=== PATIENT | male | born 1955 | race Caucasian/White ===

== ENCOUNTER 2017-12-14 18:02 | Observation (INO) | payer MEDICARE ==
[2017-12-14] MEDS ORDERED: Communication Order-Pharmacy FS SCH (18:30)
[2017-12-14 19:22] LABS: #Eosinphils 0.4 thou/uL (0.0-0.7); #Lymphocytes 1.7 thou/uL (1.20-3.40); #Monocytes 0.8 thou/uL (0.11-0.59); #Neutrophils 4.8 thou/uL (1.40-6.50); %Basophils 0.1 % (0.0-1.0); %Eosinophils 4.8 % (0.0-10.0); %Lymphocytes 22.3 % (21.0-51.0); %Monocytes 10.3 % (0.0-10.0); %Neutrophils 62.5 % (42.0-75.0); Mean Corpuscular HGB CONC 32.2 g/dL (32.0-36.0); Mean Corpuscular Hemoglobin 29.7 pg (27.0-31.0); Mean Corpuscular Volume 92.2 fl (80.0-94.0); Mean Platelet Volume 9.6 fL (7.4-10.4); Platelet Count 164 thou/uL (130-400); RBC Distribution Width 12.9 % (11.5-14.5); Red Blood Cell (RBC) Count 3.35 mill/uL (4.70-6.10); White Blood Cell (WBC) Count 7.6 thou/uL (4.8-10.8)
[2017-12-14 19:32] LABS: Anion Gap 13 mmol/L (10-20); BUN (Urea Nitrogen) 56 mg/dL (8.4-25.7); Calc. Creatinine Clearance 66 mL/min (70-130); Calcium 8.6 mg/dL (7.8-10.44); Carbon Dioxide 29 mmol/L (23-31); Chloride 107 mmol/L (98-107); Estimated GFR-MDRD 31; Glucose 277 mg/dL (80-115); Potassium 5.1 mmol/L (3.5-5.1); Sodium 144 mmol/L (136-145)
--- NOTE | 2017-12-14 19:32 | RAD ---
PORTABLE CHEST: 12/14/17 HISTORY: Cardiac catheterization exam. FINDINGS/IMPRESSION: Mild cardiomegaly with postop sternotomy change. Mild vascular congestion. Left basilar infiltrate an d atelectasis with evidence of left effusion. POS: [facility]
[2017-12-14] MEDS ORDERED: Sodium Chloride 0.9% 1,000 ML IV SCH ×2 (22:00)
[2017-12-14] MEDS ORDERED: Furosemide 40 MG/4 ML VIAL SLOW IVP SCH (22:00)
[2017-12-14] MEDS ORDERED: Carvedilol 6.25 MG TAB PO SCH (22:00)
[2017-12-14] MEDS ORDERED: Atorvastatin Calcium 20 MG TAB PO SCH (22:00)
--- NOTE | 2017-12-15 03:00 | HP ---
DATE OF ADMISSION: 12/14/2017 HISTORY OF PRESENT ILLNESS: Mr. Knapp is a pleasant 62-year-old white gentleman who comes to the hospital for pre-catheterization hydration. He has a history of a cardiomyopathy with EF of 40% to 45%, recent stress test showed apical ischemia. Because of a creatinine of 2.1, he has been admitted for hydration preprocedure. We will plan on doing this tomorrow morning. He has no complaints, den ies any chest pain, tightness, pressure. Currently denies any shortness of breath. He feels that is normal baseline. PAST MEDICAL HISTORY: 1. Type 2 diabetes. 2. Coronary artery disease status post bypass. 3. Hypertension. 4. Hyperlipidemia. 5. Gastroesophageal reflux disease. PAST SURGICAL HISTORY: 1. CABG x5. 2. Knee surgery. 3. Neck surgery. ALLERGIES: No known drug allergies. FAMILY HISTORY: Noncontributory. SOCIAL HISTORY: No alcohol, tobacco or drugs. REVIEW OF SYSTEMS: A 12-point review of systems was done and is all negative unless stated in the hi story of present illness. He has a left carotid bruit. OUTPATIENT MEDICATIONS: Include; 1. Carvedilol 12.5 mg b.i.d. 2. Metolazone 5 mg a day. 3. Imdur 30 mg a day. 4. Humalog. 5. Levemir. 6. Hydralazine 25 mg t.i.d. 7. Lasix 20 mg a day. 8. Atorvastatin 40 mg at bedtime. 9. Aspirin 81 mg a day. PHYSICAL EXAMINATION: VITAL SIGNS: Temperature 97.6, pulse 87, respiratory rate 20, satting 97% on room air, blood pressur e 172/71. GENERAL: Awake, alert, oriented x3, in no distress. HEENT: Normocephalic, atraumatic. NECK: Supple. LUNGS: Clear. CARDIOVASCULAR: S1, S2, no S3 or S4, no murmurs or rubs. ABDOMEN: Soft. Positive bowel sounds. EXTREMITIES: No edema. SKIN: Warm and dry. LABORATORY WORK: Reviewed. White count of 7.6, hemoglobin 10, hematocrit of 30, platelet count of 1 64. Chemistry with a creatinine of 2.16, GFR of 31, glucose of 277. Chest x-ray was reviewed. ASSESSMENT: 1. Ischemic cardiomyopathy. 2. Coronary artery disease. 3. Atypical ischemia on stress. 4. Status bypass x5. 5. Type 2 diabetes. PLAN: 1. Hydration overnight. We will plan on doing a heart catheterization tomorrow morning. 2. We have spoken at length about risks and benefits of the procedure and he agrees to proceed. Ple ase see my clinic note for full details on informed consent. 3. Further recommendations after results of coronary angiogram in the morning. 4. Drug-eluting stents if needed.
[2017-12-15 05:22] LABS: #Eosinphils 0.4 thou/uL (0.0-0.7); #Monocytes 0.8 thou/uL (0.11-0.59); #Neutrophils 3.5 thou/uL (1.40-6.50); %Basophils 0.6 % (0.0-1.0); %Eosinophils 5.6 % (0.0-10.0); %Lymphocytes 29.2 % (21.0-51.0); %Monocytes 12.1 % (0.0-10.0); %Neutrophils 52.6 % (42.0-75.0); Hemoglobin 9.2 g/dL (14.0-18.0); Mean Corpuscular HGB CONC 32.4 g/dL (32.0-36.0); Mean Corpuscular Hemoglobin 29.8 pg (27.0-31.0); Mean Platelet Volume 9.6 fL (7.4-10.4); Platelet Count 155 thou/uL (130-400); RBC Distribution Width 12.9 % (11.5-14.5); Red Blood Cell (RBC) Count 3.07 mill/uL (4.70-6.10); White Blood Cell (WBC) Count 6.7 thou/uL (4.8-10.8)
[2017-12-15 05:42] LABS: ALT (SGPT) 14 U/L (8-55); AST (SGOT) 12 U/L (5-34); Albumin 3.2 g/dL (3.4-4.8); Alkaline Phosphatase 112 U/L (40-150); Anion Gap 12 mmol/L (10-20); BUN (Urea Nitrogen) 56 mg/dL (8.4-25.7); Bilirubin, Total 0.4 mg/dL (0.2-1.2); Calc. Creatinine Clearance 61 mL/min (70-130); Calcium 8.2 mg/dL (7.8-10.44); Carbon Dioxide 30 mmol/L (23-31); Cardiac Risk 5.4 (Less than 4.5); Chloride 105 mmol/L (98-107); Cholesterol 129 mg/dl (< 200 Desired); Estimated GFR-MDRD 29; Globulin 2.6 g/dL (2.4-3.5); Glucose 265 mg/dL (80-115); HDL Cholesterol 24 mg/dL (>60 Neg Risk); LDL Cholesterol, Calculated 79 mg/dL; Potassium 4.2 mmol/L (3.5-5.1); Protein, Total 5.8 g/dL (5.8-8.1); Sodium 143 mmol/L (136-145); Triglycerides 131 mg/dL (Less than 150)
[2017-12-15] MEDS: hydrALAZINE 25 MG TAB PO SCH ×3 (09:04→22:12)
[2017-12-15] MEDS: Carvedilol 6.25 MG TAB PO SCH ×2 (09:04→17:30)
[2017-12-15 13:01] VITALS: BMI 37.5
[2017-12-15] MEDS ORDERED: Insulin Regular 300 UNITS/3 ML VIAL SC PRN (14:04)
[2017-12-15] MEDS ORDERED: Dextrose 5% in Water 1,000 ML IV PRN (14:04)
[2017-12-15] MEDS ORDERED: Dextrose 50% Abboject 50 ML SYRINGE IVP PRN (14:04)
--- NOTE | 2017-12-15 16:19 | PDOC.CTH ---
Cardiology Progress Note - Subjective He diuresed well overnight. He feels much better and is now able to lay flat. - Objective Vital Signs Temp Pulse Resp BP BP Pulse Ox 12/15/17 15:05 69 171/78 H 12/15/17 15:00 97.8 F 69 16 171/78 H 96 12/15/17 11:25 97.6 F 70 16 155/68 H 95 12/15/17 07:48 98.6 F 75 16 94 L 12/15/17 07:41 98.6 F 75 16 169/77 H 94 L Admit Weight 296 lb 14.4 oz Weight 292 lb 12/14/17 12/15/17 12/16/17 06:59 06:59 06:59 Intake Total 240 Output Total 1150 Balance -910 - Physical Examination General/Neuro: alert & oriented x3, NAD Neck: no JVD present Lungs: CTA, unlabored respirations Heart: RRR Abdomen: NT/ND Extremities: + edema B (1+) - Telemetry Telemetry Rhythm: NSR - Labs Result Diagrams: 12/15/17 04:55 12/15/17 04:55 - Assessment/Plan 1. CAD 2. Ischemic CM, worsening from last evaluation. 3. Ischemia on MPI. 4. CKD stage 4 PLAN: - Will plan to start hydration overnight this evening with plans for cath tomorrow if creatinine better. - NPO past midnight, plan to do this tomorrow at 8am. - IVF to start at 9pm today NS at 50ml/hr.
[2017-12-15] MEDS: Insulin Regular 300 UNITS/3 ML VIAL SC PRN (17:30)
[2017-12-15] MEDS ORDERED: Atorvastatin Calcium 40 MG TAB PO SCH (21:00)
[2017-12-15] MEDS ORDERED: Sodium Chloride 0.9% 1,000 ML IV SCH (21:30)
[2017-12-15] MEDS: Acetaminophen 325 MG TAB PO PRN (22:11)
[2017-12-16 06:18] LABS: Anion Gap 9 mmol/L (10-20); BUN (Urea Nitrogen) 57 mg/dL (8.4-25.7); Calc. Creatinine Clearance 65 mL/min (70-130); Calcium 8.3 mg/dL (7.8-10.44); Carbon Dioxide 31 mmol/L (23-31); Chloride 105 mmol/L (98-107); Estimated GFR-MDRD 31; Glucose 265 mg/dL (80-115); Potassium 4.3 mmol/L (3.5-5.1); Sodium 141 mmol/L (136-145)
[2017-12-16] MEDS: Carvedilol 6.25 MG TAB PO SCH ×2 (06:31→18:06)
[2017-12-16] MEDS ORDERED: Midazolam HCl 2 mg/2 ml Vial ONE (08:07)
[2017-12-16] MEDS ORDERED: Fentanyl 100 MCG/2 ML VIAL ONE (08:08)
[2017-12-16] MEDS ORDERED: hydrALAZINE 20 MG/ML VIAL ONE (08:45)
[2017-12-16] MEDS: hydrALAZINE 25 MG TAB PO SCH ×2 (10:16→16:15)
[2017-12-16] MEDS: Insulin Regular 300 UNITS/3 ML VIAL SC PRN ×2 (10:16→18:05)
[2017-12-16] MEDS: Acetaminophen 325 MG TAB PO PRN (10:17)
[2017-12-16] MEDS ORDERED: Nitroglycerin 0.4 MG TAB (25 Tab Bottle) SL PRN (11:58)
[2017-12-16] MEDS ORDERED: traMADol HCl 50 MG TAB PO PRN (11:58)
[2017-12-16] MEDS ORDERED: Acetaminophen/Codeine 30-300mg Tablet PO PRN (11:58)
[2017-12-16] MEDS ORDERED: Sodium Chloride 0.9% 1,000 ML IV SCH (12:00)
[2017-12-16] MEDS ORDERED: Sodium Chloride 0.9% 200 ML IV PRN (12:00)
[2017-12-16] MEDS ORDERED: Iopamidol 370 76% 100 ML VIAL ONE (17:02)
[2017-12-16 17:25] VITALS: TEMP 98.1
[2017-12-16 17:41] VITALS: BP 155/67
--- NOTE | 2017-12-16 18:48 | DIS ---
DATE OF ADMISSION 12/14/2017 DATE OF DISCHARGE: 12/16/2017 HOSPITAL COURSE: Mr. Knapp is a 62-year-old gentleman who came in for scheduled heart catheteriz ation. He was initially diuresis. He presented volume overload and he could not lay flat. Eventual ly, he did better fluid khan and he was started on IV fluids. Overnight, his creatinine improved sli ghtly. We did a heart catheterization this morning using only 77 mL of contrast. He was found to love ve ischemic cardiomyopathy with widely patent bypasses, but severe [place] disease. He was treated me dically due to the inability to use more contrast for stenting. We will continue medical therapy. Jg padilla will discuss with him the possibility of doing this later. He will be discharged home in stable co ndition. He was also given IV fluids post-procedure, and he is doing just fine at this time. He will follow up with me in 2 weeks with preclinic basic metabolic profile. Continue home medications. No changes.
== END 2017-12-16 19:30 | disposition home or self-care (01) ==
LOC: INTOOBSV 18:02 → 2NO 18:02 → EDSTATUS 12-15 17:35
PROVIDERS: ADMIT Internal Medicine Cardiovascular Disease; ATTEND Internal Medicine Cardiovascular Disease
DX: I25.10 Atherosclerotic heart disease of native coronary artery without angina pectoris (principal); I25.5 Ischemic cardiomyopathy; I12.9 Hypertensive chronic kidney disease with stage 1 through stage 4 chronic kidney disease, or unspecified chronic kidney disease; E11.22 Type 2 diabetes mellitus with diabetic chronic kidney disease; N18.4 Chronic kidney disease, stage 4 (severe); E78.5 Hyperlipidemia, unspecified; K21.9 Gastro-esophageal reflux disease without esophagitis; Z95.1 Presence of aortocoronary bypass graft; Z98.890 Other specified postprocedural states; Z79.82 Long term (current) use of aspirin; Z79.899 Other long term (current) drug therapy
CPT/HCPCS: 71045; 80048 ×2; 80053; 80061; 82962 ×2; 83880; 85025 ×2; 93455; 96360; 96361; 97139 ×2; C1769; G0378 ×2; 36415; 36416; 99152; 99153; A4216; J0360; J1644; J1815; J1940; J2250; J3010

== ENCOUNTER 2018-04-12 14:54 | Emergency (ER) | payer MEDICARE ==
--- NOTE | 2018-04-12 15:55 | RAD ---
UPRIGHT PORTABLE CHEST 1 VIEW: Date: 04/12/18 HISTORY: 62-year-old male with history of cough and fever for 2 days with vomiting. COMPARISON: 12/08/15 and 12/14/17. FINDINGS/IMPRESSION: Overall stable pleural and parenchymal opacity changes in the left base. Slight right costophrenic an gle blunting. Postop midline sternotomy. Mild bilateral vascular congestion. No confluent pneumonia o r other overt acute process. POS: [facility]
[2018-04-12 16:13] LABS: #Lymphocytes 1.5 thou/uL (1.20-3.40); #Monocytes 1.2 thou/uL (0.11-0.59); #Neutrophils 9.5 thou/uL (1.40-6.50); %Basophils 0.2 % (0.0-1.0); %Eosinophils 0.3 % (0.0-10.0); %Monocytes 9.7 % (0.0-10.0); %Neutrophils 77.7 % (42.0-75.0); Hemoglobin 9.6 g/dL (14.0-18.0); Mean Corpuscular HGB CONC 33.7 g/dL (32.0-36.0); Mean Corpuscular Hemoglobin 30.4 pg (27.0-31.0); Mean Corpuscular Volume 90.4 fl (80.0-94.0); Mean Platelet Volume 8.5 fL (7.4-10.4); Platelet Count 140 thou/uL (130-400); RBC Distribution Width 13.4 % (11.5-14.5); Red Blood Cell (RBC) Count 3.17 mill/uL (4.70-6.10); White Blood Cell (WBC) Count 12.2 thou/uL (4.8-10.8)
[2018-04-12 16:38] LABS: ALT (SGPT) 13 U/L (8-55); AST (SGOT) 20 U/L (5-34); Albumin 3.1 g/dL (3.4-4.8); Alkaline Phosphatase 106 U/L (40-150); Anion Gap 18 mmol/L (10-20); BUN (Urea Nitrogen) 52 mg/dL (8.4-25.7); Bilirubin, Total 0.6 mg/dL (0.2-1.2); Calc. Creatinine Clearance 0 mL/min (70-130); Calcium 8.4 mg/dL (7.8-10.44); Carbon Dioxide 21 mmol/L (23-31); Chloride 106 mmol/L (98-107); Estimated GFR-MDRD 25; Globulin 2.9 g/dL (2.4-3.5); Glucose 174 mg/dL (80-115); Lipase Less than 4 U/L (8-78); Potassium 4.3 mmol/L (3.5-5.1); Sodium 141 mmol/L (136-145)
[2018-04-12 17:12] LABS: Bilirubin Negative (Negative); Blood, Urine Trace (Negative); Clarity CLEAR (Clear); Glucose, Urine (Dipstick) 100 mg/dL (Negative); Leukocyte Negative (Negative); Nitrite Negative (Negative); Protein, Urine (Dipstick) > or equal to 300 mg/dL (Neg-Trace); Specific Gravity, Urine 1.017 (1.002-1.036); Urobilinogen 0.2 mg/dL (0.2-1.0); pH, Urine 5.5 (5.0-9.0)
[2018-04-12 17:14] LABS: Bacteria/HPF None Seen HPF (None Seen); RBC/HPF 0-3 HPF (0-3); Squamous Epithelial 0-3 HPF (0-3); WBC/HPF 0-3 HPF (0-3)
[2018-04-12 17:17] LABS: Pathc Cast-AUWi Flag 5.37 (0-2.49); Yeast-AUWi Flag 43.7 (0-25.0)
[2018-04-12 17:25] LABS: Hyaline Casts/LPF NONE SEEN LPF (0-3 Hyaline); Manual Microscopic Reviewed? No Path Casts Seen; Renal Epithelial None Seen HPF (0-3); Transitional Epithelial NONE SEEN HPF (0-3); Yeast-All Forms None Seen HPF (None Seen)
[2018-04-12] MEDS ORDERED: Acetaminophen 500 MG TAB ONE (18:46)
== END 2018-04-12 18:34 | disposition home or self-care (01) ==
LOC: ERS 14:54
DX: B34.9 Viral infection, unspecified (principal); J40 Bronchitis, not specified as acute or chronic; I11.0 Hypertensive heart disease with heart failure; I50.9 Heart failure, unspecified; E78.5 Hyperlipidemia, unspecified; I25.2 Old myocardial infarction; E11.9 Type 2 diabetes mellitus without complications; Z79.4 Long term (current) use of insulin
CPT/HCPCS: 36415; 71045; 80053; 81003; 81015; 83690; 85025

== ENCOUNTER 2018-06-15 18:29 | Inpatient (IN) | payer MEDICARE ==
[2018-06-15] MEDS ORDERED: Furosemide 40 MG/4 ML VIAL ONE (19:17)
[2018-06-15 19:26] LABS: Troponin I 0.115 ng/mL (< 0.028)
[2018-06-15 19:33] LABS: #Lymphocytes 1.3 thou/uL (1.20-3.40); #Monocytes 0.8 thou/uL (0.11-0.59); #Neutrophils 4.7 thou/uL (1.40-6.50); %Basophils 0.6 % (0.0-1.0); %Eosinophils 0.6 % (0.0-10.0); %Lymphocytes 18.5 % (21.0-51.0); %Monocytes 12.3 % (0.0-10.0); %Neutrophils 68.1 % (42.0-75.0); Hemoglobin 9.7 g/dL (14.0-18.0); Mean Corpuscular HGB CONC 33.2 g/dL (32.0-36.0); Mean Corpuscular Hemoglobin 29.7 pg (27.0-31.0); Mean Corpuscular Volume 89.5 fL (78.0-98.0); Mean Platelet Volume 9.5 fL (7.4-10.4); Platelet Count 125 thou/uL (130-400); RBC Distribution Width 13.6 % (11.5-14.5); Red Blood Cell (RBC) Count 3.27 mill/uL (4.70-6.10); White Blood Cell (WBC) Count 6.9 thou/uL (4.8-10.8)
[2018-06-15 19:42] LABS: ALT (SGPT) 12 U/L (8-55); AST (SGOT) 21 U/L (5-34); Albumin 3.3 g/dL (3.4-4.8); Alkaline Phosphatase 108 U/L (40-150); Anion Gap 12 mmol/L (10-20); BUN (Urea Nitrogen) 73 mg/dL (8.4-25.7); Bilirubin, Total 0.4 mg/dL (0.2-1.2); Calc. Creatinine Clearance 0 mL/min (70-130); Calcium 8.1 mg/dL (7.8-10.44); Carbon Dioxide 21 mmol/L (23-31); Chloride 112 mmol/L (98-107); Estimated GFR-MDRD 20; Glucose 299 mg/dL (80-115); Protein, Total 6.3 g/dL (5.8-8.1); Sodium 141 mmol/L (136-145)
[2018-06-15] MEDS ORDERED: Sodium Chloride 0.9% 1,000 ML IV SCH ×3 (23:15→23:46)
[2018-06-16] MEDS ORDERED: Dextrose 50% Abboject 50 ML SYRINGE SLOW IVP PRN (00:17)
[2018-06-16] MEDS ORDERED: Dextrose 5% in Water 1,000 ML IV PRN (00:17)
[2018-06-16 00:45] VITALS: BMI 36.3
[2018-06-16] MEDS ORDERED: Nitroglycerin 0.4 MG TAB (25 Tab Bottle) ONE (01:28)
[2018-06-16] MEDS ORDERED: Ondansetron HCl/PF 4 MG/2 ML Vial IVP PRN (02:25)
[2018-06-16] MEDS ORDERED: Senokot 8.6 MG TAB PO PRN (02:25)
[2018-06-16] MEDS ORDERED: Nitroglycerin 0.4 MG TAB (25 Tab Bottle) PO PRN (02:25)
[2018-06-16] MEDS ORDERED: Ondansetron ODT 4 MG TAB PO PRN (02:25)
[2018-06-16] MEDS ORDERED: Insulin Glargine 10 UNITS in Pre-Filled Syringe 1 EACH SC SCH ×2 (03:00→09:00)
--- NOTE | 2018-06-16 03:10 | HP ---
DATE OF ADMISSION: 06/15/2018 The patient was seen and examined on 06/15/2018 PRIMARY CARE PHYSICIAN: Briseyda Jamison M.D. PRIMARY MOISTURE METER READER: None. CHIEF COMPLAINT: Generalized weakness. The patient is a transfer from [facility]. HISTORY OF PRESENT ILLNESS: The patient is a 62-year-old white male with hypertension; diabetes phani itus, type 2; coronary artery disease; and congestive heart failure; presented to the emergency room with generalized weakness. His workup at [facility] was consistent with acute kidney injury for which he was transferred to this facility. Over the last two weeks, the patient has not been eating and drinking well. He has on and off nausea along with several episodes of diarrhea. He denies any melena or hematochezia. His stool is watery per patient report. He has not taken his insulin for this reason. He denies any abdominal pain; ho wever, had some cramping. He has chronic shortness of breath, which has not worsened recently. No c hest pain or syncope reported. At [facility], his workup was consistent with acute kidney injury with a creatinine of 3 .36 and BUN of 79. PAST MEDICAL HISTORY: 1. Coronary artery disease, status post coronary artery bypass graft. 2. Hypertension. 3. Hyperlipidemia. 4. Diabetes mellitus, type 2. 5. Chronic diastolic heart failure. 6. Chronic kidney disease, stage 4. PAST SURGICAL HISTORY: 1. Cardiac catheterization. 2. CABG. 3. Carpal tunnel release. 4. Back surgery. 5. Foot surgery. ALLERGIES: No known drug allergies. HOME MEDICATIONS: The patient does not remember all of his home medication. Family to get accurate list of medications in a.m. SOCIAL HISTORY: The patient currently lives at home. No tobacco, alcohol or drug use. He is FULL C ODE. FAMILY HISTORY: Negative for heart disease. REVIEW OF SYSTEMS: The following complete review of systems was negative, unless otherwise mentioned in the HPI or below: Constitutional: Weight loss or gain, ability to conduct usual activities. Sk in: Rash, itching. Eyes: Double vision, pain. ENT/Mouth: Nose bleeding, neck stiffness, pain, te nderness. Cardiovascular: Palpitations, dyspnea on exertion, orthopnea. Respiratory: Shortness of breath, wheezing, cough, hemoptysis, fever or night sweats. Gastrointestinal: Poor appetite, abdom inal pain, heartburn, nausea, vomiting, constipation, or diarrhea. Genitourinary: Urgency, frequenc y, dysuria, nocturia. Musculoskeletal: Pain, swelling. Neurologic/Psychiatric: Anxiety, depressio n. Allergy/Immunologic: Skin rash, bleeding tendency. PHYSICAL EXAMINATION: VITAL SIGNS: Temperature 98, respirations 18, pulse 69, blood pressure 145/66 with O2 saturation of 95% on room air. GENERAL: A 62-year-old male, in no apparent distress. HEENT: Head atraumatic, normocephalic. Sclerae are anicteric. Moist mucous membrane. No oral lesi on. NECK: Supple. No JVD appreciated. No carotid bruit. LUNGS: Showed diminished air entry at bilateral bases. No rales or rhonchi. HEART: S1, S2 present. Regular rate and rhythm, 2/6 systolic murmur over the mitral area. Healed m idline scar from previous CABG. ABDOMEN: Soft, nontender, bowel sounds present. EXTREMITIES: A 2+ edema in bilateral lower extremities, which is unchanged per patient report. SKIN: Warm and dry. LYMPH NODES: No palpable lymph nodes in the neck. PERIPHERAL VASCULAR: Radial pulses palpable bilaterally. MUSCULOSKELETAL: No joint swelling or tenderness. LABORATORY AND X-RAY FINDINGS: As discussed above. Repeat BUN was 73, creatinine 3.1. CBC showed W BC 6.9 with hemoglobin 9.7. Troponin of 0.115. Chest x-ray last admission was negative for acute findings. EKG by my review showed sinus rhythm with first degree AV block. IMPRESSION: 1. Acute kidney injury on chronic kidney disease, stage 4, multifactorial. Per patient report, he t akes Lasix along with metolazone as needed. 2. Hypertension. 3. Hyperlipidemia. 4. Benign prostatic hypertrophy. 5. Chronic pain syndrome. 6. Diabetes mellitus, type 2, uncontrolled. 7. Nausea with diarrhea of 2 weeks' duration, rule out infectious etiology. 8. Gastroesophageal reflux disease. 9. Chronic diastolic heart failure. 10. Coronary artery disease, status post coronary artery bypass grafting. 11. Elevated troponins, probably secondary to congestive heart failure. PLAN: The patient will be monitored on the telemetry unit. He will continue gentle IV hydration. Ollie Sebastian has been notified by the ER physician. We will repeat labs in a.m. We will get stool workup. Start insulin sliding scale with Lantus. We will resume home medications once confirmed.
[2018-06-16] MEDS: Acetaminophen 325 MG TAB PO PRN (03:57)
[2018-06-16] MEDS: hydrALAZINE 25 MG TAB PO SCH ×3 (03:57→23:16)
[2018-06-16 04:51] LABS: Anion Gap 14 mmol/L (10-20); BUN (Urea Nitrogen) 70 mg/dL (8.4-25.7); Calc. Creatinine Clearance 46 mL/min (70-130); Calcium 8.5 mg/dL (7.8-10.44); Carbon Dioxide 21 mmol/L (23-31); Chloride 112 mmol/L (98-107); Estimated GFR-MDRD 22; Glucose 313 mg/dL (80-115); Potassium 3.8 mmol/L (3.5-5.1); Sodium 143 mmol/L (136-145)
[2018-06-16 04:57] LABS: Troponin I 0.083 ng/mL (< 0.028)
[2018-06-16] MEDS: Insulin Regular 300 UNITS/3 ML VIAL SC PRN ×4 (05:33→20:36)
[2018-06-16] MEDS ORDERED: Furosemide 40 MG/4 ML VIAL SLOW IVP SCH (06:00)
[2018-06-16] MEDS ORDERED: Chloraseptic Spray 180 ml Bottle PO PRN (06:52)
[2018-06-16] MEDS ORDERED: Eucerin (Mineral Oil/Petrolatum,White) 30 gm Jar TOP PRN (06:52)
[2018-06-16] MEDS ORDERED: Diabetic Tussin 200 MG/10 ML UDCUP PO PRN (06:52)
[2018-06-16] MEDS ORDERED: HYDROcodone/Acetaminophen 5/325 mg Tablet PO PRN (06:52)
[2018-06-16] MEDS ORDERED: Calcium Carbonate 500 MG ChewTAB PO PRN (06:52)
[2018-06-16] MEDS ORDERED: Artificial Tears 18 DROP/0.9 ML EA EYE PRN (06:52)
[2018-06-16] MEDS ORDERED: Loperamide HCl 2 MG CAP PO PRN (06:52)
[2018-06-16] MEDS ORDERED: Sodium Chloride 0.65% Nasal 44 ML BOT EA NARE PRN (06:52)
[2018-06-16] MEDS ORDERED: hydrALAZINE 20 MG/ML VIAL SLOW IVP PRN (06:52)
[2018-06-16] MEDS ORDERED: Loratadine 10 MG TAB PO PRN (06:52)
[2018-06-16] MEDS: Carvedilol 6.25 MG TAB PO SCH ×2 (09:16→20:34)
[2018-06-16] MEDS: Heparin 5,000 UNITS/ML VIAL SC SCH ×2 (09:17→20:34)
[2018-06-16] MEDS: Ferrous Sulfate 325 MG TAB PO SCH (09:17)
[2018-06-16] MEDS: Finasteride 5 MG TAB PO SCH (09:17)
[2018-06-16] MEDS: Tamsulosin HCl 0.4 MG CAP PO SCH (09:18)
[2018-06-16] MEDS: Isosorbide Dinitrate 20 MG TAB PO SCH (09:18)
[2018-06-16] MEDS: Insulin Glargine 15 UNITS in Pre-Filled Syringe 1 EACH SC SCH ×2 (10:04→20:35)
[2018-06-16] MEDS: Albumin 25% 25 GM/100 ML BOT IVPB SCH ×3 (10:05→23:16)
--- NOTE | 2018-06-16 11:10 | PDOC.PN ---
- Subjective Encounter Start Date: 06/16/18 Encounter Start Time: 07:15 -: old records requested/rev Patient seen and examined. No overnight events - Objective Resuscitation Status: Resuscitation Status FULL:Full Resuscitation MAR Reviewed: Yes Vital Signs & Weight: Vital Signs (12 hours) Temp Pulse Resp BP BP Pulse Ox 06/16/18 09:16 171/72 H 06/16/18 08:10 99.9 F H 79 18 06/16/18 07:56 99.9 F H 79 18 171/72 H 92 L 06/16/18 05:00 89 179/79 H 06/16/18 03:57 76 06/16/18 03:45 97.9 F 90 20 198/87 H 94 L 06/16/18 02:33 98.2 F 76 20 06/15/18 23:15 98.2 F 76 20 178/76 H 97 Weight Weight 275 lb 8 oz I&O: 06/15/18 06/16/18 06/17/18 06:59 06:59 06:59 Intake Total 228 566 Output Total 600 Balance -372 566 Result Diagrams: 06/15/18 18:53 06/16/18 04:12 Additional Labs: Accuchecks 06/16/18 06/15/18 06/15/18 05:23 23:25 18:54 POC Glucose 322 H 320 H 303 H Radiology Reviewed by me: Yes (renal US) EKG Reviewed by me: Yes (NSR) Phys Exam - Physical Examination Constitutional: NAD HEENT: PERRLA, moist MMs, sclera anicteric Neck: no JVD, supple Respiratory: no wheezing, no rales, no rhonchi Cardiovascular: RRR, no significant murmur, no rub Gastrointestinal: soft, non-tender, no distention, positive bowel sounds obesity+ Musculoskeletal: pulses present, edema present Neurological: non-focal, normal sensation, moves all 4 limbs Lymphatic: no nodes Psychiatric: normal affect, A&O x 3 Skin: no rash, normal turgor Dx/Plan (1) Acute worsening of stage 4 chronic kidney disease Code(s): N28.9 - DISORDER OF KIDNEY AND URETER, UNSPECIFIED; N18.4 - CHRONIC KIDNEY DISEASE, STAGE 4 (SEVERE) Status: Acute (2) Elevated troponin Code(s): R74.8 - ABNORMAL LEVELS OF OTHER SERUM ENZYMES Status: Acute (3) BPH (benign prostatic hyperplasia) Code(s): N40.0 - BENIGN PROSTATIC HYPERPLASIA WITHOUT LOWER URINRY TRACT SYMP Status: Chronic (4) CAD (coronary artery disease), [place] coronary artery Code(s): I25.10 - ATHSCL HEART DISEASE OF [place] CORONARY ARTERY W/O ANG PCTRS Status: Chronic (5) Chronic combined systolic and diastolic CHF (congestive heart failure) Code(s): I50.42 - CHRONIC COMBINED SYSTOLIC AND DIASTOLIC HRT FAIL Status: Chronic (6) GERD (gastroesophageal reflux disease) Code(s): K21.9 - GASTRO-ESOPHAGEAL REFLUX DISEASE WITHOUT ESOPHAGITIS Status: Chronic (7) HLD (hyperlipidemia) Code(s): E78.5 - HYPERLIPIDEMIA, UNSPECIFIED Status: Chronic (8) HTN (hypertension) Code(s): I10 - ESSENTIAL (PRIMARY) HYPERTENSION Status: Chronic (9) Insulin dependent diabetes mellitus Code(s): E11.9 - TYPE 2 DIABETES MELLITUS WITHOUT COMPLICATIONS; Z79.4 - ASSISTED (CURRENT) USE OF INSULIN Status: Chronic (10) Obesity (BMI 30-39.9) Code(s): E66.9 - OBESITY, UNSPECIFIED Status: Chronic (11) Diabetic nephropathy Status: Chronic - Plan cont current plan of care * will dc IVF as it will worsen edema * agree with albumin * will check urine protein and creatinine * suspecting nephrotic syndrome * discussed with nephrology * medication reviewed as below * symptomatic treatment * will repeat labs tomorrow. * stool is negative for infection Review of Systems - Review of Systems Constitutional: negative: fever, chills, sweats, weakness, malaise, other Eyes: negative: Pain, Vision Change, Conjunctivae Inflammation, Eyelid Inflammation, Redness, Other ENT: negative: Ear Pain, Ear Discharge, Nose Pain, Nose Discharge, Nose Congestion, Mouth Pain, Mouth Swelling, Throat Pain, Throat Swelling, Other Respiratory: negative: Cough, Dry, Shortness of Breath, Hemoptysis, SOB with Excertion, Pleuritic Pain, Sputum, Wheezing Cardiovascular: edema. negative: chest pain, palpitations, orthopnea, paroxysmal nocturnal dyspnea, light headedness, other Gastrointestinal: Diarrhea. negative: Nausea, Vomiting, Abdominal Pain, Constipation, Melena, Hematochezia, Other Genitourinary: negative: Dysuria, Frequency, Incontinence, Hematuria, Retention , Other Musculoskeletal: negative: Neck Pain, Shoulder Pain, Arm Pain, Back Pain, Hand Pain, Leg Pain, Foot Pain, Other Skin: negative: Rash, Lesions, Akbar, Bruising, Other - Medications/Allergies Allergies/Adverse Reactions: Allergies Allergy/AdvReac Type Severity Reaction Status Date / Time No Known Allergies Allergy Verified 06/16/18 00:19 Medications: Current Medications Acetaminophen (Tylenol) 650 mg PO Q4H PRN PRN Reason: Headache/Fever or Pain Last Admin: 06/16/18 03:57 Dose: 650 mg Hydrocodone Bitart/Acetaminophen ([place]ur[place] 5/325) 1 tab PO Q4H PRN PRN Reason: Moderate Pain (4-6) Albumin Human (Albumin 25%) 25 gm IVPB 0400,1000,1600,2200 [facility] Stop: 06/19/18 10:01 Last Admin: 06/16/18 10:05 Dose: 25 gm Artificial Tears (Tears Naturale) 0 drop EA EYE PRN PRN PRN Reason: Dry Eyes Aspirin (Aspirin Chewable) 81 mg PO DAILY [facility] Last Admin: 06/16/18 09:16 Dose: 81 mg Atorvastatin Calcium (Lipitor) 40 mg PO HS [facility] Calcium Carbonate (Tums) 1,000 mg PO Q4H PRN PRN Reason: Heartburn or Indigestion Carvedilol (Coreg) 12.5 mg PO BID [facility] Last Admin: 06/16/18 09:16 Dose: 12.5 mg Dextrose/Water (Dextrose 50%) 25 gm SLOW IVP PRN PRN PRN Reason: Hypoglycemia Ferrous Sulfate (Feosol) 325 mg PO DAILY [facility] Last Admin: 06/16/18 09:17 Dose: 325 mg Finasteride (Proscar) 5 mg PO DAILY [facility] Last Admin: 06/16/18 09:17 Dose: 5 mg Gabapentin (Neurontin) 600 mg PO [facility] Glucagon (Glucagon) 1 mg IM PRN PRN PRN Reason: Hypoglycemia Guaifenesin (Robitussin Sf) 200 mg PO Q4H PRN PRN Reason: Cough Heparin Sodium (Porcine) (Heparin) 5,000 units SC BID [facility] Last Admin: 06/16/18 09:17 Dose: 5,000 units Hydralazine HCl (Apresoline) 25 mg PO Q8HR [facility] Last Admin: 06/16/18 03:57 Dose: 25 mg Hydralazine HCl (Apresoline) 10 mg SLOW IVP Q4H PRN PRN Reason: Systolic BP > 180 Sodium Chloride (Normal Saline 0.9%) 1,000 mls @ 50 mls/hr IV .Q20H [facility] Last Admin: 06/16/18 00:58 Dose: 1,000 mls Dextrose/Water (D5w) 1,000 mls @ 0 mls/hr IV .Q0M PRN PRN Reason: Hypoglycemia Insulin Glargine 15 units/ (Miscellaneous Medication) 0.15 mls @ 0 mls/hr SC [facility] Insulin Glargine 15 units/ (Miscellaneous Medication) 0.15 mls @ 0 mls/hr SC [facility] Last Admin: 06/16/18 10:04 Dose: 0.15 mls Insulin Human Regular (Humulin R) 0 units SC .MILD SLIDING SCALE PRN PRN Reason: Mild Correctional Scale Last Admin: 06/16/18 05:33 Dose: 5 unit Insulin Human Regular (Humulin R) 0 units SC .BEDTIME SLIDING SC PRN PRN Reason: Bedtime Correctional Scale Isosorbide Dinitrate (Isordil) 30 mg PO [facility] Last Admin: 06/16/18 09:18 Dose: 30 mg Loperamide HCl (Imodium) 2 mg PO PRN PRN PRN Reason: Diarrhea/Loose Stools Loratadine (Claritin) 10 mg PO DAILYPRN PRN PRN Reason: Sinus Symptoms Mineral Oil/White Petrolatum (Eucerin Cream) 0 gm TOP BIDPRN PRN PRN Reason: Dry Skin Nitroglycerin (Nitrostat) 0.4 mg PO Q5MIN PRN PRN Reason: Chest Pain Ondansetron HCl (Zofran Odt) 4 mg PO Q6H PRN PRN Reason: Nausea/Vomiting Ondansetron HCl (Zofran) 4 mg IVP Q6H PRN PRN Reason: Nausea/Vomiting Pantoprazole Sodium (Protonix) 40 mg PO DAILY [facility] Last Admin: 06/16/18 09:18 Dose: 40 mg Phenol (Chloraseptic [place] 180 Ml Bot) 0 ml PO PRN PRN PRN Reason: Sore Throat Ranolazine (Ranexa) 500 mg PO BID [facility] Last Admin: 06/16/18 09:18 Dose: 500 mg Senna (Senokot) 2 tab PO HSPRN PRN PRN Reason: Constipation Sodium Chloride (Flush - Normal Saline) 10 ml IVF Q12HR [facility] Last Admin: 06/16/18 09:18 Dose: Not Given Sodium Chloride (Flush - Normal Saline) 10 ml IVF PRN PRN PRN Reason: Saline Flush Sodium Chloride ([place] Nasal [place] 0.65%) 0 ml EA NARE QIDPRN PRN PRN Reason: Nasal Congestion Tamsulosin HCl (Flomax) 0.4 mg PO DAILY [facility] Last Admin: 06/16/18 09:18 Dose: 0.4 mg
--- NOTE | 2018-06-16 11:35 | ULT ---
BILATERAL RENAL ULTRASOUND: HISTORY: Renal failure. FINDINGS: The right kidney measures 13 cm in length and the left kidney measures 13.6 cm in length. No focal m ass or hydronephrosis is seen on either side. Cortical echogenicity and thickness is normal. The ur inary bladder is well distended and unremarkable with a volume of 63 cc. Incidental note is made of calculi in the gallbladder. IMPRESSION: 1. Normal renal ultrasound. 2. Cholelithiasis. POS: [facility]
--- NOTE | 2018-06-16 14:34 | CON ---
DATE OF SERVICE: 06/16/2018 RENAL MEDICINE HISTORY OF PRESENT ILLNESS: Mr. Knapp is a 62-year-old white male with known multiple medical pr oblems which included congestive heart failure/generalized edema and admitted for generalized weaknes s. He initially presented to [facility]. He was noted to have worsening kidney dysfunction. Creatinine was noted to be at 3.36. In the past, this patient has been diuresed. He follows up wi th [facility]. We are now being consulted for his acute kidney injury. Emp iric volume repletion was given last night. The patient is still feeling tired this morning. Denies any worsening shortness of breath. REVIEW OF SYSTEMS: Positive for generalized malaise. Positive for chronic leg edema. No nausea. P ositive for chronic shortness of breath. No chest pain. No syncopal episode. No nausea and vomitin g. No fever or chills. Appetite and energy level is decreased. No hematochezia, no melena, no zach temesis. MEDICATIONS: The patient is currently on [place] 5/325 q.4 hours p.r.n., aspirin 81 mg tab once a day, Lipitor 40 mg at bedtime, carvedilol 12.5 mg b.i.d., ferrous sulfate 325 mg once a day, Proscar 5 mg daily, heparin 5000 units subcu b.i.d., hydralazine 25 mg q.8., insulin glargine 15 units subcu q.a. m. and 15 units at night, Humulin R sliding scale, isosorbide dinitrate 30 mg q.a.m., loperamide p.r. n. ranolazine 500 mg p.o. b.i.d., Protonix 40 mg daily, normal saline at 50 mL an hour, Flomax 0.4 mg once a day. PAST MEDICAL HISTORY: 1. Coronary artery disease. 2. Chronic renal failure from presumed diabetic nephropathy. 3. Type 2 diabetes mellitus. 4. Chronic diastolic heart failure. 5. Hypertension. 6. Hyperlipidemia. PAST SURGICAL HISTORY: 1. Status post cardiac catheterization. 2. Status post right knee surgery. 3. Status post bilateral foot surgery. 4. Status post back surgery. 5. Status post carpal tunnel release. 6. Status post CABG. 7. Status post colonoscopy. SOCIAL HISTORY: Patient lives in [place]. 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 He is single and lives with his sister. No children. Education high school. Currently, no smoking, no alcohol, no IV drug abuse. ALLERGIES: None. TRAUMA: Status post right knee torn ligament. IMMUNIZATIONS: Up to date. HOSPITALIZATIONS: Please see past medical history. FAMILY HISTORY: No family history of ESRD. PHYSICAL EXAMINATION: VITAL SIGNS: Blood pressure is 171/72, heart rate 79, respiratory rate 18, temperature 99.9, pulse o x 92%. GENERAL: Noted to be awake, but somewhat sleepy, comfortable, not in distress. SKIN: Adequate turgor. HEENT: He does have slightly pale conjunctivae, anicteric sclerae. NECK: No neck mass, no carotid bruits, no JVD. CHEST: No deformities. LUNGS: Decreased breath sounds. HEART: Normal sinus rhythm. No murmur, no gallops, no rubs. ABDOMEN: Globular, soft, nontender, no masses. Positive for bowel sounds. Negative for epigastric bruits. GROIN: No inguinal lymphadenopathy. EXTREMITIES: +2 edema. NEUROLOGIC: Awake, oriented to 3 spheres. Moving all extremities. No tremors, no asterixis, no leidy sandy. LABORATORY: Laboratories of 06/15/2018, white count 6.9, hemoglobin 9.7. 06/16/2018, sodium 143, potassium 3.8, chloride 112, carbon dioxide 21, BUN 70, creatinine 2.86, calc ium 8.5, magnesium 2.0. Troponin I 0.083. 06/15/2018, BUN 73, creatinine 3.11. 04/12/2018, creatinine 2.64. 03/08/2018, creatinine 2.47. 04/12/2018, urinalysis show protein. ASSESSMENT AND PLAN: 1. Chronic renal failure -- most likely from diabetic nephropathy with a longstanding history of armando betes mellitus and proteinuria. Continue supportive care. 2. Acute kidney injury -- superimposed hemodynamically mediated renal dysfunction. Diuretics are on hold. Continue gentle volume repletion -- currently normal saline. In addition, I have added salt poor albumin 25 grams IV q.6. Hopefully, this will improve his renal dysfunction. There is no indic ation for any emergent hemodialysis with this patient. I will at least review an ultrasound with thi s patient. I agree with current management.
[2018-06-16 16:16] LABS: Bilirubin Negative (Negative); Blood, Urine Trace (Negative); Clarity CLOUDY (Clear); Glucose, Urine (Dipstick) 500 mg/dL (Negative); Leukocyte Negative (Negative); Nitrite Negative (Negative); Protein, Urine (Dipstick) > or equal to 300 mg/dL (Neg-Trace); Specific Gravity, Urine 1.017 (1.002-1.036); Urobilinogen 0.2 mg/dL (0.2-1.0); pH, Urine 5.5 (5.0-9.0)
[2018-06-16 16:18] LABS: Bacteria/HPF None Seen HPF (None Seen); Hyaline Casts/LPF 4-6 HYALINE CAST LPF (0-3 Hyaline); Pathc Cast-AUWi Flag 0.58 (0-2.49); Squamous Epithelial 0-3 HPF (0-3); WBC/HPF 0-3 HPF (0-3)
[2018-06-16 16:30] LABS: Creatinine, Urine 103.54 mg/dL (63-166)
[2018-06-16] MEDS: Atorvastatin Calcium 40 MG TAB PO SCH (20:34)
[2018-06-16] MEDS: Gabapentin 300 MG CAP PO SCH (20:34)
[2018-06-17] MEDS: Albumin 25% 25 GM/100 ML BOT IVPB SCH ×4 (04:37→22:12)
[2018-06-17] MEDS: hydrALAZINE 25 MG TAB PO SCH ×3 (04:42→22:13)
[2018-06-17 04:57] LABS: #Eosinphils 0.3 thou/uL (0.0-0.7); #Lymphocytes 1.5 thou/uL (1.20-3.40); #Monocytes 0.8 thou/uL (0.11-0.59); #Neutrophils 2.8 thou/uL (1.40-6.50); %Basophils 0.2 % (0.0-1.0); %Eosinophils 6.1 % (0.0-10.0); %Lymphocytes 27.5 % (21.0-51.0); %Monocytes 14.5 % (0.0-10.0); %Neutrophils 51.7 % (42.0-75.0); Hemoglobin 8.6 g/dL (14.0-18.0); Mean Corpuscular HGB CONC 34.7 g/dL (32.0-36.0); Mean Corpuscular Hemoglobin 30.6 pg (27.0-31.0); Mean Corpuscular Volume 88.4 fL (78.0-98.0); Mean Platelet Volume 9.6 fL (7.4-10.4); Platelet Count 116 thou/uL (130-400); RBC Distribution Width 13.6 % (11.5-14.5); Red Blood Cell (RBC) Count 2.81 mill/uL (4.70-6.10); White Blood Cell (WBC) Count 5.3 thou/uL (4.8-10.8)
[2018-06-17 05:16] LABS: Hemoglobin A1c 8.2 % (4.0-6.0)
[2018-06-17 05:24] LABS: Albumin 3.7 g/dL (3.4-4.8); Anion Gap 15 mmol/L (10-20); BUN (Urea Nitrogen) 72 mg/dL (8.4-25.7); BUN/Creatinine Ratio 24.57; Calc. Creatinine Clearance 45 mL/min (70-130); Calcium 8.4 mg/dL (7.8-10.44); Carbon Dioxide 19 mmol/L (23-31); Chloride 113 mmol/L (98-107); Estimated GFR-MDRD 22; Glucose 172 mg/dL (80-115); Phosphorus 4.2 mg/dL (2.3-4.7); Potassium 3.2 mmol/L (3.5-5.1); Sodium 144 mmol/L (136-145)
[2018-06-17] MEDS ORDERED: Metolazone 5 MG TAB PO SCH (07:00)
[2018-06-17] MEDS ORDERED: Potassium Chloride 20 MEQ TAB PO SCH (07:00)
[2018-06-17] MEDS ORDERED: Furosemide 40 MG/4 ML VIAL SLOW IVP SCH (07:00)
[2018-06-17] MEDS: Isosorbide Dinitrate 20 MG TAB PO SCH (08:51)
[2018-06-17] MEDS: Tamsulosin HCl 0.4 MG CAP PO SCH (08:52)
[2018-06-17] MEDS: Carvedilol 6.25 MG TAB PO SCH ×2 (08:52→20:42)
[2018-06-17] MEDS: Ferrous Sulfate 325 MG TAB PO SCH (08:52)
[2018-06-17] MEDS: Finasteride 5 MG TAB PO SCH (08:52)
[2018-06-17] MEDS: Insulin Glargine 15 UNITS in Pre-Filled Syringe 1 EACH SC SCH ×2 (08:52→20:42)
[2018-06-17] MEDS: Heparin 5,000 UNITS/ML VIAL SC SCH ×2 (09:02→20:43)
--- NOTE | 2018-06-17 09:15 | PDOC.PN ---
- Subjective Encounter Start Date: 06/17/18 Encounter Start Time: 08:00 Patient seen and examined. No new complaints. No overnight events pt has more edema, he has worse creatinine - Objective Resuscitation Status: Resuscitation Status FULL:Full Resuscitation MAR Reviewed: Yes Vital Signs & Weight: Vital Signs (12 hours) Temp Pulse Resp BP BP Pulse Ox 06/17/18 08:30 97.8 F 59 L 14 159/68 H 94 L 06/17/18 04:42 97.7 F 62 18 126/60 95 06/16/18 23:16 67 20 140/63 95 Weight Weight 274 lb 14.4 oz I&O: 06/16/18 06/17/18 06/18/18 06:59 06:59 06:59 Intake Total 228 2246 Output Total 600 700 Balance -372 1546 Result Diagrams: 06/17/18 04:35 06/17/18 04:35 Additional Labs: Accuchecks 06/17/18 06/16/18 06/16/18 04:34 20:32 16:49 POC Glucose 186 H 288 H 283 H 06/16/18 10:23 POC Glucose 351 H Radiology Reviewed by me: Yes (renal US) EKG Reviewed by me: Yes (nsr) Phys Exam - Physical Examination Constitutional: NAD HEENT: PERRLA, moist MMs, sclera anicteric puffy face Neck: no JVD, supple Respiratory: no wheezing, no rales, no rhonchi reduced air entry at base Cardiovascular: RRR, no significant murmur, no rub Gastrointestinal: soft, non-tender, no distention, positive bowel sounds obesity+ Musculoskeletal: pulses present, edema present Neurological: non-focal, normal sensation, moves all 4 limbs Psychiatric: normal affect, A&O x 3 Skin: no rash, normal turgor Dx/Plan (1) Acute worsening of stage 4 chronic kidney disease Code(s): N28.9 - DISORDER OF KIDNEY AND URETER, UNSPECIFIED; N18.4 - CHRONIC KIDNEY DISEASE, STAGE 4 (SEVERE) Status: Acute (2) Elevated troponin Code(s): R74.8 - ABNORMAL LEVELS OF OTHER SERUM ENZYMES Status: Acute (3) BPH (benign prostatic hyperplasia) Code(s): N40.0 - BENIGN PROSTATIC HYPERPLASIA WITHOUT LOWER URINRY TRACT SYMP Status: Chronic (4) CAD (coronary artery disease), [place] coronary artery Code(s): I25.10 - ATHSCL HEART DISEASE OF [place] CORONARY ARTERY W/O ANG PCTRS Status: Chronic (5) Chronic combined systolic and diastolic CHF (congestive heart failure) Code(s): I50.42 - CHRONIC COMBINED SYSTOLIC AND DIASTOLIC HRT FAIL Status: Chronic (6) GERD (gastroesophageal reflux disease) Code(s): K21.9 - GASTRO-ESOPHAGEAL REFLUX DISEASE WITHOUT ESOPHAGITIS Status: Chronic (7) HLD (hyperlipidemia) Code(s): E78.5 - HYPERLIPIDEMIA, UNSPECIFIED Status: Chronic (8) HTN (hypertension) Code(s): I10 - ESSENTIAL (PRIMARY) HYPERTENSION Status: Chronic (9) Insulin dependent diabetes mellitus Code(s): E11.9 - TYPE 2 DIABETES MELLITUS WITHOUT COMPLICATIONS; Z79.4 - [employer] (CURRENT) USE OF INSULIN Status: Chronic (10) Obesity (BMI 30-39.9) Code(s): E66.9 - OBESITY, UNSPECIFIED Status: Chronic (11) Diabetic nephropathy Status: Chronic (12) Anasarca associated with disorder of kidney Code(s): N04.9 - NEPHROTIC SYNDROME WITH UNSPECIFIED MORPHOLOGIC CHANGES Status: Acute (13) Hypokalemia Code(s): E87.6 - HYPOKALEMIA Status: Acute (14) Cholelithiases Code(s): K80.20 - CALCULUS OF GALLBLADDER W/O CHOLECYSTITIS W/O OBSTRUCTION Status: Chronic (15) Nephrotic syndrome Code(s): N04.9 - NEPHROTIC SYNDROME WITH UNSPECIFIED MORPHOLOGIC CHANGES Status: Chronic - Plan cont current plan of care * will change to inpt * continue albumin * will give lasix and zaroxolyn * medication reviewed as below * symptomatic treatment * monitor renal function * nephrology following. Review of Systems - Review of Systems Eyes: negative: Pain, Vision Change, Conjunctivae Inflammation, Eyelid Inflammation, Redness, Other ENT: negative: Ear Pain, Ear Discharge, Nose Pain, Nose Discharge, Nose Congestion, Mouth Pain, Mouth Swelling, Throat Pain, Throat Swelling, Other Respiratory: negative: Cough, Dry, Shortness of Breath, Hemoptysis, SOB with Excertion, Pleuritic Pain, Sputum, Wheezing Cardiovascular: edema Gastrointestinal: negative: Nausea, Vomiting, Abdominal Pain, Diarrhea, Constipation, Melena, Hematochezia, Other Genitourinary: negative: Dysuria, Frequency, Incontinence, Hematuria, Retention , Other Musculoskeletal: negative: Neck Pain, Shoulder Pain, Arm Pain, Back Pain, Hand Pain, Leg Pain, Foot Pain, Other Skin: negative: Rash, Lesions, Akbar, Bruising, Other - Medications/Allergies Allergies/Adverse Reactions: Allergies Allergy/AdvReac Type Severity Reaction Status Date / Time No Known Allergies Allergy Verified 06/16/18 00:19 Medications: Current Medications Acetaminophen (Tylenol) 650 mg PO Q4H PRN PRN Reason: Headache/Fever or Pain Last Admin: 06/16/18 03:57 Dose: 650 mg Hydrocodone Bitart/Acetaminophen ([place] 5/325) 1 tab PO Q4H PRN PRN Reason: Moderate Pain (4-6) Albumin Human (Albumin 25%) 25 gm IVPB 0400,1000,1600,2200 [facility] Stop: 06/19/18 10:01 Last Admin: 06/17/18 04:37 Dose: 25 gm Artificial Tears (Tears Naturale) 0 drop EA EYE PRN PRN PRN Reason: Dry Eyes Aspirin (Aspirin Chewable) 81 mg PO DAILY [facility] Last Admin: 06/17/18 08:51 Dose: 81 mg Atorvastatin Calcium (Lipitor) 40 mg PO HS [facility] Last Admin: 06/16/18 20:34 Dose: 40 mg Calcium Carbonate (Tums) 1,000 mg PO Q4H PRN PRN Reason: Heartburn or Indigestion Carvedilol (Coreg) 12.5 mg PO BID [facility] Last Admin: 06/17/18 08:52 Dose: 12.5 mg Dextrose/Water (Dextrose 50%) 25 gm SLOW IVP PRN PRN PRN Reason: Hypoglycemia Ferrous Sulfate (Feosol) 325 mg PO DAILY [facility] Last Admin: 06/17/18 08:52 Dose: 325 mg Finasteride (Proscar) 5 mg PO DAILY [facility] Last Admin: 06/17/18 08:52 Dose: 5 mg Gabapentin (Neurontin) 600 mg PO HS [facility] Last Admin: 06/16/18 20:34 Dose: 600 mg Glucagon (Glucagon) 1 mg IM PRN PRN PRN Reason: Hypoglycemia Guaifenesin (Robitussin Sf) 200 mg PO Q4H PRN PRN Reason: Cough Heparin Sodium (Porcine) (Heparin) 5,000 units SC BID [facility] Last Admin: 06/17/18 09:02 Dose: 5,000 units Hydralazine HCl (Apresoline) 25 mg PO Q8HR [facility] Last Admin: 06/17/18 04:42 Dose: 25 mg Hydralazine HCl (Apresoline) 10 mg SLOW IVP Q4H PRN PRN Reason: Systolic BP > 180 Dextrose/Water (D5w) 1,000 mls @ 0 mls/hr IV .Q0M PRN PRN Reason: Hypoglycemia Insulin Glargine 15 units/ (Miscellaneous Medication) 0.15 mls @ 0 mls/hr SC [facility] Last Admin: 06/16/18 20:35 Dose: 0.15 mls Insulin Glargine 15 units/ (Miscellaneous Medication) 0.15 mls @ 0 mls/hr SC [facility] Last Admin: 06/17/18 08:52 Dose: 0.15 mls Insulin Human Regular (Humulin R) 0 units SC .MILD SLIDING SCALE PRN PRN Reason: Mild Correctional Scale Last Admin: 06/16/18 17:29 Dose: 4 unit Insulin Human Regular (Humulin R) 0 units SC .BEDTIME SLIDING SC PRN PRN Reason: Bedtime Correctional Scale Last Admin: 06/16/18 20:36 Dose: 3 unit Isosorbide Dinitrate (Isordil) 30 mg PO [facility] Last Admin: 06/17/18 08:51 Dose: 30 mg Loperamide HCl (Imodium) 2 mg PO PRN PRN PRN Reason: Diarrhea/Loose Stools Loratadine (Claritin) 10 mg PO DAILYPRN PRN PRN Reason: Sinus Symptoms Mineral Oil/White Petrolatum (Eucerin Cream) 0 gm TOP BIDPRN PRN PRN Reason: Dry Skin Nitroglycerin (Nitrostat) 0.4 mg PO Q5MIN PRN PRN Reason: Chest Pain Ondansetron HCl (Zofran Odt) 4 mg PO Q6H PRN PRN Reason: Nausea/Vomiting Ondansetron HCl (Zofran) 4 mg IVP Q6H PRN PRN Reason: Nausea/Vomiting Pantoprazole Sodium (Protonix) 40 mg PO DAILY [facility] Last Admin: 06/17/18 08:52 Dose: 40 mg Phenol (Chloraseptic [place] 180 Ml Bot) 0 ml PO PRN PRN PRN Reason: Sore Throat Ranolazine (Ranexa) 500 mg PO BID [facility] Last Admin: 06/17/18 08:52 Dose: 500 mg Senna (Senokot) 2 tab PO HSPRN PRN PRN Reason: Constipation Sodium Chloride (Flush - Normal Saline) 10 ml IVF Q12HR [facility] Last Admin: 06/17/18 09:03 Dose: 10 ml Sodium Chloride (Flush - Normal Saline) 10 ml IVF PRN PRN PRN Reason: Saline Flush Sodium Chloride ([place] Nasal [place] 0.65%) 0 ml EA NARE QIDPRN PRN PRN Reason: Nasal Congestion Tamsulosin HCl (Flomax) 0.4 mg PO DAILY [facility] Last Admin: 06/17/18 08:52 Dose: 0.4 mg
--- NOTE | 2018-06-17 10:50 | PRG ---
DATE OF SERVICE: 06/17/2018 Mr. Knapp is a 62-year-old white male with chronic renal failure, CHF, and admitted for general ed malaise and weakness. He was found to be in acute kidney injury on top of his chronic renal failu re. He most likely had hemodynamically mediated renal dysfunction. Adjustment of diuretics was made . However, due to persistent edema, we have decided to restart him on IV diuretics. Salt-poor album in was also started. Creatinine this morning was noted to be 2.93, which is slightly higher from yes terday of 2.86. Please note he came in with a creatinine noted at 3.11. Please note he has underlyi ng diabetic nephropathy. He tells me he is feeling better, denies any chest pain, shortness of breat h. PHYSICAL EXAMINATION: VITAL SIGNS: Blood pressure is 126/60 with a heart rate of 62, respiratory rate 18, temperature 97.7 , pulse ox 95%. GENERAL: Awake, alert, comfortable, not in distress. SKIN: Adequate turgor. HEENT: He has slightly pale conjunctivae, anicteric sclerae. NECK: No neck mass, no carotid bruits, no JVD. CHEST: No deformities. LUNGS: Decreased breath sounds. HEART: Normal sinus rhythm. No murmur, no gallops, no rubs. ABDOMEN: Globular, soft, nontender. EXTREMITIES: Positive for edema. MEDICATIONS: Medications of 06/17/2018 was reviewed. LABORATORY DATA: Laboratories of 06/17/2018, white count 5.3, hemoglobin 8.6, sodium 143, potassium 3.8, chloride 112, carbon dioxide 21, BUN 70, creatinine 2.86, glucose 313, calcium 8.5, magnesium 2. 0. Troponin I 0.083. ASSESSMENT AND PLAN: 1. Generalized edema. Continuing gentle dose of IV Lasix. Continue salt-poor albumin at the same t [place]. 2. Chronic renal failure -- fluctuating creatinine. There is a prerenal component. Please note he has underlying diabetic nephropathy. Continue supportive care. There is no indication for any dialy tic intervention.
[2018-06-17] MEDS: Insulin Regular 300 UNITS/3 ML VIAL SC PRN ×3 (13:10→20:52)
[2018-06-17] MEDS: Gabapentin 300 MG CAP PO SCH (20:42)
[2018-06-17] MEDS: Atorvastatin Calcium 40 MG TAB PO SCH (20:43)
[2018-06-17] MEDS: Acetaminophen 325 MG TAB PO PRN (22:13)
[2018-06-18] MEDS: Albumin 25% 25 GM/100 ML BOT IVPB SCH ×2 (04:42→10:05)
[2018-06-18 05:37] LABS: #Eosinphils 0.2 thou/uL (0.0-0.7); #Lymphocytes 1.1 thou/uL (1.20-3.40); #Monocytes 0.5 thou/uL (0.11-0.59); #Neutrophils 2.1 thou/uL (1.40-6.50); %Basophils 0.8 % (0.0-1.0); %Eosinophils 5.9 % (0.0-10.0); %Lymphocytes 27.6 % (21.0-51.0); %Monocytes 12.1 % (0.0-10.0); %Neutrophils 53.6 % (42.0-75.0); Hemoglobin 8.6 g/dL (14.0-18.0); Mean Corpuscular HGB CONC 34.2 g/dL (32.0-36.0); Mean Corpuscular Hemoglobin 30.4 pg (27.0-31.0); Mean Corpuscular Volume 88.9 fL (78.0-98.0); Mean Platelet Volume 9.9 fL (7.4-10.4); Platelet Count 119 thou/uL (130-400); RBC Distribution Width 13.7 % (11.5-14.5); Red Blood Cell (RBC) Count 2.82 mill/uL (4.70-6.10)
[2018-06-18 05:41] LABS: Anion Gap 15 mmol/L (10-20); BUN (Urea Nitrogen) 75 mg/dL (8.4-25.7); BUN/Creatinine Ratio 24.12; Calc. Creatinine Clearance 43 mL/min (70-130); Calcium 8.6 mg/dL (7.8-10.44); Carbon Dioxide 20 mmol/L (23-31); Chloride 113 mmol/L (98-107); Estimated GFR-MDRD 20; Glucose 176 mg/dL (80-115); Magnesium 2.5 mg/dL (1.6-2.6); Phosphorus 4.8 mg/dL (2.3-4.7); Potassium 3.5 mmol/L (3.5-5.1); Sodium 144 mmol/L (136-145)
[2018-06-18] MEDS: hydrALAZINE 25 MG TAB PO SCH ×3 (06:16→22:09)
--- NOTE | 2018-06-18 09:08 | PRG ---
DATE OF SERVICE: 06/18/2018 RENAL MEDICINE SUBJECTIVE: Mr. Knapp is a 62-year-old white male who was admitted for generalized malaise. Thi s morning, he tells me he is feeling better. We are seeing him for his chronic renal failure from di abetic nephropathy. His creatinine this morning was noted at 3.1 and yesterday this was 2.93. This could be a reflection of the current diuretic regimen. My bias is to temporarily hold the furos emide and restart it as an outpatient. No other complaints. He is feeling stronger. OBJECTIVE: VITAL SIGNS: Blood pressure is 174/74, heart rate 60, respiratory rate 16, temperature 96.7, pulse o x 99%. GENERAL: Awake, alert, sitting comfortable, not in distress. SKIN: Adequate turgor. HEENT: Slightly pale conjunctivae, anicteric sclerae. NECK: No neck mass, no carotid bruits, no JVD. CHEST: No deformities. LUNGS: Clear breath sounds. No wheezing, no crackles. HEART: Normal sinus rhythm. No murmurs, no gallops, no rubs. ABDOMEN: Globular, soft, nontender, no masses. EXTREMITIES: Trace edema. MEDICATIONS: Medications of 06/18/2018 was reviewed. LABORATORY DATA: Laboratories of 06/18/2018; sodium 144, potassium 3.5, chloride 113, carbon dioxide 20, BUN 75, creatinine 3.1, GFR 20 mL per minute, glucose 176, calcium 8.6, phosphorus 4.8with, whit e count 4, hemoglobin 8.6. ASSESSMENT AND PLAN: 1. Chronic renal failure from diabetic nephropathy - fluctuating creatinine. Creatinine is slightly higher. I agree to hold off furosemide. Continue salt poor albumin. 2. Anemia. We will start Epogen at 7,500 units subcutaneously every week. Start ferrous sulfate 32 5 mg tab b.i.d. 3. Generalized edema - much improved. 4. Congestive heart failure, clinically asymptomatic.
[2018-06-18] MEDS ORDERED: Epoetin (ESRD) 20,000 UNITS/ML SC SCH (10:00)
[2018-06-18] MEDS: Carvedilol 6.25 MG TAB PO SCH ×2 (10:03→22:08)
[2018-06-18] MEDS: Ferrous Sulfate 325 MG TAB PO SCH (10:03)
[2018-06-18] MEDS: Tamsulosin HCl 0.4 MG CAP PO SCH (10:03)
[2018-06-18] MEDS: Finasteride 5 MG TAB PO SCH (10:05)
[2018-06-18] MEDS: Isosorbide Dinitrate 20 MG TAB PO SCH (10:05)
[2018-06-18] MEDS: Insulin Glargine 20 UNITS in Pre-Filled Syringe 1 EACH SC SCH (10:06)
[2018-06-18] MEDS: Insulin Regular 300 UNITS/3 ML VIAL SC PRN ×3 (10:07→18:51)
[2018-06-18] MEDS: Heparin 5,000 UNITS/ML VIAL SC SCH ×2 (10:08→22:10)
--- NOTE | 2018-06-18 12:48 | PDOC.PN ---
- Subjective Encounter Start Date: 06/18/18 Encounter Start Time: 07:45 Patient seen and examined. No new complaints. No overnight events - Objective Resuscitation Status: Resuscitation Status FULL:Full Resuscitation MAR Reviewed: Yes Vital Signs & Weight: Vital Signs (12 hours) Temp Pulse Resp BP BP BP Pulse Ox 06/18/18 11:29 98.5 F 62 18 167/70 H 06/18/18 10:03 173/74 H 06/18/18 08:00 96.7 F L 63 16 99 06/18/18 07:37 96.7 F L 63 16 174/74 H 99 06/18/18 06:16 63 160/75 H 06/18/18 04:00 97.5 F L 58 L 16 145/70 H 94 L Weight Weight 279 lb 3.2 oz I&O: 06/17/18 06/18/18 06/19/18 06:59 06:59 06:59 Intake Total 2246 1660 Output Total 700 875 Balance 1546 785 Result Diagrams: 06/18/18 04:49 06/18/18 04:49 Additional Labs: Accuchecks 06/18/18 06/17/18 06/17/18 11:03 20:50 17:01 POC Glucose 314 H 292 H 197 H EKG Reviewed by me: Yes (nsr) Phys Exam - Physical Examination Constitutional: NAD HEENT: PERRLA, moist MMs, sclera anicteric Neck: no JVD, supple Respiratory: no wheezing, no rales, no rhonchi Cardiovascular: RRR, no significant murmur, no rub Gastrointestinal: soft, non-tender, no distention, positive bowel sounds obesity+ Musculoskeletal: edema present Neurological: non-focal, normal sensation, moves all 4 limbs Lymphatic: no nodes Psychiatric: normal affect, A&O x 3 Skin: no rash, normal turgor Dx/Plan (1) Acute worsening of stage 4 chronic kidney disease Code(s): N28.9 - DISORDER OF KIDNEY AND URETER, UNSPECIFIED; N18.4 - CHRONIC KIDNEY DISEASE, STAGE 4 (SEVERE) Status: Acute (2) Elevated troponin Code(s): R74.8 - ABNORMAL LEVELS OF OTHER SERUM ENZYMES Status: Acute (3) BPH (benign prostatic hyperplasia) Code(s): N40.0 - BENIGN PROSTATIC HYPERPLASIA WITHOUT LOWER URINRY TRACT SYMP Status: Chronic (4) CAD (coronary artery disease), [place] coronary artery Code(s): I25.10 - ATHSCL HEART DISEASE OF [place] CORONARY ARTERY W/O ANG PCTRS Status: Chronic (5) Chronic combined systolic and diastolic CHF (congestive heart failure) Code(s): I50.42 - CHRONIC COMBINED SYSTOLIC AND DIASTOLIC HRT FAIL Status: Chronic (6) GERD (gastroesophageal reflux disease) Code(s): K21.9 - GASTRO-ESOPHAGEAL REFLUX DISEASE WITHOUT ESOPHAGITIS Status: Chronic (7) HLD (hyperlipidemia) Code(s): E78.5 - HYPERLIPIDEMIA, UNSPECIFIED Status: Chronic (8) HTN (hypertension) Code(s): I10 - ESSENTIAL (PRIMARY) HYPERTENSION Status: Chronic (9) Insulin dependent diabetes mellitus Code(s): E11.9 - TYPE 2 DIABETES MELLITUS WITHOUT COMPLICATIONS; Z79.4 - SNF (CURRENT) USE OF INSULIN Status: Chronic (10) Obesity (BMI 30-39.9) Code(s): E66.9 - OBESITY, UNSPECIFIED Status: Chronic (11) Diabetic nephropathy Status: Chronic (12) Anasarca associated with disorder of kidney Code(s): N04.9 - NEPHROTIC SYNDROME WITH UNSPECIFIED MORPHOLOGIC CHANGES Status: Acute (13) Hypokalemia Code(s): E87.6 - HYPOKALEMIA Status: Acute (14) Cholelithiases Code(s): K80.20 - CALCULUS OF GALLBLADDER W/O CHOLECYSTITIS W/O OBSTRUCTION Status: Chronic (15) Nephrotic syndrome Code(s): N04.9 - NEPHROTIC SYNDROME WITH UNSPECIFIED MORPHOLOGIC CHANGES Status: Chronic - Plan cont current plan of care * hold diuretics * continue salt poor albumin as per nephrology * monitor renal function * medication reviewed as below * symptomatic treatment. Review of Systems - Review of Systems Eyes: negative: Pain, Vision Change, Conjunctivae Inflammation, Eyelid Inflammation, Redness, Other ENT: negative: Ear Pain, Ear Discharge, Nose Pain, Nose Discharge, Nose Congestion, Mouth Pain, Mouth Swelling, Throat Pain, Throat Swelling, Other Respiratory: negative: Cough, Dry, Shortness of Breath, Hemoptysis, SOB with Excertion, Pleuritic Pain, Sputum, Wheezing Cardiovascular: edema. negative: chest pain, palpitations, orthopnea, paroxysmal nocturnal dyspnea, light headedness, other Gastrointestinal: negative: Nausea, Vomiting, Abdominal Pain, Diarrhea, Constipation, Melena, Hematochezia, Other Genitourinary: negative: Dysuria, Frequency, Incontinence, Hematuria, Retention , Other Musculoskeletal: negative: Neck Pain, Shoulder Pain, Arm Pain, Back Pain, Hand Pain, Leg Pain, Foot Pain, Other Skin: negative: Rash, Lesions, Akbar, Bruising, Other - Medications/Allergies Allergies/Adverse Reactions: Allergies Allergy/AdvReac Type Severity Reaction Status Date / Time No Known Allergies Allergy Verified 06/16/18 00:19 Medications: Current Medications Acetaminophen (Tylenol) 650 mg PO Q4H PRN PRN Reason: Headache/Fever or Pain Last Admin: 06/17/18 22:13 Dose: 650 mg Hydrocodone Bitart/Acetaminophen ([place] 5/325) 1 tab PO Q4H PRN PRN Reason: Moderate Pain (4-6) Artificial Tears (Tears Naturale) 0 drop EA EYE PRN PRN PRN Reason: Dry Eyes Aspirin (Aspirin Chewable) 81 mg PO DAILY [facility] Last Admin: 06/18/18 10:03 Dose: 81 mg Atorvastatin Calcium (Lipitor) 40 mg PO HS [facility] Last Admin: 06/17/18 20:43 Dose: 40 mg Calcium Carbonate (Tums) 1,000 mg PO Q4H PRN PRN Reason: Heartburn or Indigestion Carvedilol (Coreg) 12.5 mg PO BID [facility] Last Admin: 06/18/18 10:03 Dose: 12.5 mg Dextrose/Water (Dextrose 50%) 25 gm SLOW IVP PRN PRN PRN Reason: Hypoglycemia Epoetin Jg (Procrit) 7,500 units SC Q7D [facility] Ferrous Sulfate (Feosol) 325 mg PO DAILY [facility] Last Admin: 06/18/18 10:03 Dose: 325 mg Finasteride (Proscar) 5 mg PO DAILY [facility] Last Admin: 06/18/18 10:05 Dose: 5 mg Gabapentin (Neurontin) 600 mg PO [facility] Last Admin: 06/17/18 20:42 Dose: 600 mg Glucagon (Glucagon) 1 mg IM PRN PRN PRN Reason: Hypoglycemia Guaifenesin (Robitussin Sf) 200 mg PO Q4H PRN PRN Reason: Cough Heparin Sodium (Porcine) (Heparin) 5,000 units SC BID [facility] Last Admin: 06/18/18 10:08 Dose: 5,000 units Hydralazine HCl (Apresoline) 25 mg PO Q8HR [facility] Last Admin: 06/18/18 06:16 Dose: 25 mg Hydralazine HCl (Apresoline) 10 mg SLOW IVP Q4H PRN PRN Reason: Systolic BP > 180 Dextrose/Water (D5w) 1,000 mls @ 0 mls/hr IV .Q0M PRN PRN Reason: Hypoglycemia Insulin Glargine 20 units/ (Miscellaneous Medication) 0.2 mls @ 0 mls/hr SC [facility] Insulin Glargine 20 units/ (Miscellaneous Medication) 0.2 mls @ 0 mls/hr [facility] Last Admin: 06/18/18 10:06 Dose: 0.2 mls Insulin Human Regular (Humulin R) 0 units SC .MILD SLIDING SCALE PRN PRN Reason: Mild Correctional Scale Last Admin: 06/18/18 11:21 Dose: 5 unit Insulin Human Regular (Humulin R) 0 units SC .BEDTIME SLIDING SC PRN PRN Reason: Bedtime Correctional Scale Last Admin: 06/17/18 20:52 Dose: 3 unit Isosorbide Dinitrate (Isordil) 30 mg PO [facility] Last Admin: 06/18/18 10:05 Dose: 30 mg Loperamide HCl (Imodium) 2 mg PO PRN PRN PRN Reason: Diarrhea/Loose Stools Loratadine (Claritin) 10 mg PO DAILYPRN PRN PRN Reason: Sinus Symptoms Mineral Oil/White Petrolatum (Eucerin Cream) 0 gm TOP BIDPRN PRN PRN Reason: Dry Skin Nitroglycerin (Nitrostat) 0.4 mg PO Q5MIN PRN PRN Reason: Chest Pain Ondansetron HCl (Zofran Odt) 4 mg PO Q6H PRN PRN Reason: Nausea/Vomiting Ondansetron HCl (Zofran) 4 mg IVP Q6H PRN PRN Reason: Nausea/Vomiting Pantoprazole Sodium (Protonix) 40 mg PO DAILY [facility] Last Admin: 06/18/18 10:05 Dose: 40 mg Phenol (Chloraseptic [place] 180 Ml Bot) 0 ml PO PRN PRN PRN Reason: Sore Throat Ranolazine (Ranexa) 500 mg PO BID [facility] Last Admin: 06/18/18 10:05 Dose: 500 mg Senna (Senokot) 2 tab PO HSPRN PRN PRN Reason: Constipation Sodium Chloride (Flush - Normal Saline) 10 ml IVF Q12HR [facility] Last Admin: 06/18/18 10:06 Dose: 10 ml Sodium Chloride (Flush - Normal Saline) 10 ml IVF PRN PRN PRN Reason: Saline Flush Last Admin: 06/18/18 04:42 Dose: 10 ml Sodium Chloride ([place] Nasal [place] 0.65%) 0 ml EA NARE QIDPRN PRN PRN Reason: Nasal Congestion Tamsulosin HCl (Flomax) 0.4 mg PO DAILY [facility] Last Admin: 06/18/18 10:03 Dose: 0.4 mg
[2018-06-18] MEDS ORDERED: Insulin Glargine 20 UNITS in Pre-Filled Syringe 1 EACH SC SCH (21:00)
[2018-06-18] MEDS: Gabapentin 300 MG CAP PO SCH (22:09)
[2018-06-18] MEDS: Atorvastatin Calcium 40 MG TAB PO SCH (22:10)
[2018-06-19] MEDS: hydrALAZINE 25 MG TAB PO SCH ×2 (05:43→12:31)
[2018-06-19 07:26] VITALS: TEMP 97.7
[2018-06-19] MEDS: Heparin 5,000 UNITS/ML VIAL SC SCH (08:19)
[2018-06-19] MEDS: Isosorbide Dinitrate 20 MG TAB PO SCH (08:19)
[2018-06-19] MEDS: Finasteride 5 MG TAB PO SCH (08:20)
[2018-06-19] MEDS: Ferrous Sulfate 325 MG TAB PO SCH (08:20)
[2018-06-19] MEDS: Tamsulosin HCl 0.4 MG CAP PO SCH (08:20)
[2018-06-19] MEDS: Carvedilol 6.25 MG TAB PO SCH (08:20)
[2018-06-19 08:33] LABS: #Eosinphils 0.3 thou/uL (0.0-0.7); #Lymphocytes 1.3 thou/uL (1.20-3.40); #Monocytes 0.6 thou/uL (0.11-0.59); #Neutrophils 4.4 thou/uL (1.40-6.50); %Basophils 0.1 % (0.0-1.0); %Eosinophils 5.2 % (0.0-10.0); %Lymphocytes 19.1 % (21.0-51.0); %Monocytes 9.1 % (0.0-10.0); %Neutrophils 66.5 % (42.0-75.0); Hemoglobin 8.9 g/dL (14.0-18.0); Mean Corpuscular HGB CONC 34.4 g/dL (32.0-36.0); Mean Corpuscular Hemoglobin 30.4 pg (27.0-31.0); Mean Corpuscular Volume 88.6 fL (78.0-98.0); Mean Platelet Volume 9.7 fL (7.4-10.4); Platelet Count 145 thou/uL (130-400); RBC Distribution Width 13.8 % (11.5-14.5); Red Blood Cell (RBC) Count 2.92 mill/uL (4.70-6.10); White Blood Cell (WBC) Count 6.5 thou/uL (4.8-10.8)
[2018-06-19 08:57] LABS: Albumin 4.2 g/dL (3.4-4.8); Anion Gap 14 mmol/L (10-20); BUN (Urea Nitrogen) 75 mg/dL (8.4-25.7); BUN/Creatinine Ratio 25.86; Calc. Creatinine Clearance 47 mL/min (70-130); Calcium 8.4 mg/dL (7.8-10.44); Carbon Dioxide 21 mmol/L (23-31); Chloride 112 mmol/L (98-107); Estimated GFR-MDRD 22; Glucose 133 mg/dL (80-115); Phosphorus 4.5 mg/dL (2.3-4.7); Potassium 3.6 mmol/L (3.5-5.1); Sodium 143 mmol/L (136-145)
[2018-06-19] MEDS: Insulin Glargine 20 UNITS in Pre-Filled Syringe 1 EACH SC SCH (09:24)
--- NOTE | 2018-06-19 09:24 | PRG ---
DATE OF SERVICE: 06/19/2018 SERVICE: Renal Medicine. SUBJECTIVE: Mr. Knapp is a 62-year-old white male seen for his acute kidney injury on top of his chronic renal failure. Underlying diabetic nephropathy explains his chronic renal failure. He was given IV volume repletion as well as concomitantly diurese. His generalized edema is much improved. He voices no new complaints today. He is wanting to go home. OBJECTIVE: VITAL SIGNS: Blood pressure is 161/71, heart rate 67, respiratory rate 18, temperature 97.8, pulse ox 94%. GENERAL: Awake, comfortable, not in distress. SKIN: Adequate turgor. HEENT: Slightly pale conjunctivae, anicteric sclerae. NECK: No neck mass, no carotid bruits, no JVD. CHEST: No deformities. LUNGS: Clear breath sounds, no wheezing, no crackles. HEART: Normal sinus rhythm. No murmur, no gallops or rubs. ABDOMEN: Globular, soft, nontender. No masses. EXTREMITIES: Trace edema. MEDICATIONS: Of 06/19/2018 was reviewed. LABORATORY DATA: Of 06/18/2018, white count 4, hemoglobin 8.6. Sodium 144, potassium 3.5, chloride 103, carbon dioxide 20, BUN , creatinine 3.11. ASSESSMENT AND PLAN: 1. Acute kidney injury on top of his chronic renal failure, superimposed prerenal azotemia. Creatinine yesterday was noted at 3.11. He is off diuretics. Agree with current management. Continue to hold diuretics. Continue low salt, low protein diet. No indication for any dialytic intervention. From a renal point of view, the patient can be discharged. He will follow up with [facility]. 2. Anemia, started weekly Epogen. He may need to follow up with Hematology for epogen shots in the near future. 3. Generalized edema, much improved. 4. Congestive heart failure, follows up with the [facility]. Addendum - Case discussed with hospitalist - creatinine this am noted at 2.9 - Ok for discharge today MTDD
--- NOTE | 2018-06-19 10:05 | DIS ---
PRIMARY CARE PHYSICIAN: Dr. Briseyda Jamison DATE OF ADMISSION: 06/16/2018 DATE OF DISCHARGE: 06/19/2018 DISCHARGE DISPOSITION: Home. PRIMARY DISCHARGE DIAGNOSES: 1. Acute on chronic kidney failure, baseline chronic kidney disease stage 4. 2. Anasarca associated with renal disorder. 3. Nephrotic syndrome. 4. Elevated troponin due to demand ischemia and renal disease. 5. Hypokalemia, corrected. SECONDARY DISCHARGE DIAGNOSES: Obesity with BMI 37, nephrotic syndrome, insulin-dependent diabetes m ellitus, hypertension, dyslipidemia, gastroesophageal reflux disease, diabetic nephropathy, chronic c ombined systolic and diastolic heart failure, asymptomatic cholelithiasis, coronary artery disease wi th benign enlargement of prostate. PRIMARY PROCEDURE/OPERATION: None. RADIOLOGICAL INVESTIGATION: Renal ultrasound was normal. SIGNIFICANT LABORATORY DATA: WBC 6.5, hemoglobin 8.9, platelet 145. Sodium 143, potassium 3.6, BUN 75, creatinine 2.90, glucose 133, calcium 8.4, phosphorus 4.5, albumin 4.2. Urinalysis; glucosuria, proteinuria. Stool for infection workup negative. DISCHARGE MEDICATIONS: The patient will continue all his previous medications; hydralazine 25 mg p.o . q.8 hourly, aspirin 81 mg p.o. daily, Lipitor 40 mg p.o. at bedtime, Coreg 12.5 mg p.o. b.i.d., tatum amando sulfate 325 mg p.o. daily, Proscar 5 mg p.o. daily, Lasix 40 mg p.o. b.i.d., gabapentin 600 mg p .o. at bedtime, Humalog insulin as per sliding scale, Glargine insulin. The patient is advised to ta ke 20 units subcutaneously b.i.d., isosorbide dinitrate 30 mg p.o. daily, Zaroxolyn 5 mg p.o. as dire cted, Protonix 40 mg p.o. daily, Ranexa 500 mg p.o. b.i.d., Flomax 0.4 mg p.o. daily. CONTRAINDICATIONS: The patient is not on ANGELA inhibitor and ARB because of renal failure and contrain dicated. With that, the patient is at risk for hyperkalemia that is why not prescribed, instead the patient is on hydralazine and mononitrate regimen. CONTRAINDICATIONS: None. CODE STATUS: FULL CODE. INPATIENT CONSULTANTS: Dr. Sebastian was following while in hospital. TEST RESULTS PENDING ON DISCHARGE: None. ALLERGIES: No known drug allergy. DISCHARGE PLAN: Post hospital, patient has Heart Failure Clinic appointment on 07/03/2018 at 1:20 p. m. The patient will follow up with Dr. Bell, Dr. Briseyda Jamison and Dr. Sebastian as instructed. HOSPITAL COURSE: The patient is a 62-year-old male who was admitted by Dr. Wilian Feliz. Please see his H&P for further detail. The patient mainly presented with generalized weakness. He was having o n and off diarrhea and that is why we did stool for infection workup which was negative. We found hi s acute on chronic kidney failure with elevated creatinine and BUN. The patient was gently given IV fluid. Dr. Sebastian was consulted and he recommended to start albumin. The patient was getting anasarca and that is why IV fluid was discontinued and the patient was continued with the Lasix and Zaroxolyn and albumin. Once we started diuretic therapy his renal function started going up and that is why we had to hold diuretic therapy. While in hospital, we noted that patient was having anasarca and acut e on chronic renal failure. He was not able to be discharged in 24 hours, that is why we changed to inpatient status. Now, he is stabilized. He has anasarca is getting better and his renal function i s also baseline. The patient clinically feels better. While in hospital, we did not make any significant change in his medication. The patient is medicall y stable for discharge. This patient eventually will need dialysis. He has underlying nephrotic syn drome based on a urine protein creatinine ratio. Renal ultrasound is normal. During this admission, we changed Humalog insulin as per sliding scale and the patient is instructed to take Levemir insuli n 20 units subcu b.i.d. The rest of medication was kept as per previous. PHYSICAL EXAMINATION: VITAL SIGNS: Today, temperature 97.7, pulse 67, respiratory rate 16, saturation 93% on room air, blo od pressure 168/72, weight 281 pounds. GENERAL: The patient is currently alert, awake, no obvious acute distress. HEAD: Normocephalic, atraumatic. EYES: Pupils round, reactive to light. Extraocular muscle intact. ENT: Oropharynx within normal limits. Moist mucous membranes. No oral lesion, no pharyngeal erythe ma, no exudate. NECK: Supple, no JVD, no thyromegaly, no carotid bruit. LUNGS: Clear without any rhonchi or rales. CARDIAC: S1, S2 regular without any murmur. ABDOMEN: Soft and benign without any tenderness. EXTREMITIES: No edema. NEUROLOGIC: Nonfocal examination. The patient is medically stable for discharge today.
[2018-06-19] MEDS: Insulin Regular 300 UNITS/3 ML VIAL SC PRN (12:31)
[2018-06-19 14:32] VITALS: BP 140/63
== END 2018-06-19 14:07 | disposition home or self-care (01) | DRG 683 ==
LOC: ERS 18:29 → 2SW 22:43 → OBSVTOIN 06-17 06:45 → 2NO 06-17 10:23
PROVIDERS: ADMIT Internal Medicine; ATTEND Internal Medicine
DX: N17.9 Acute kidney failure, unspecified (principal); I13.0 Hypertensive heart and chronic kidney disease with heart failure and stage 1 through stage 4 chronic kidney disease, or unspecified chronic kidney disease; I24.8 Other forms of acute ischemic heart disease; I50.42 Chronic combined systolic (congestive) and diastolic (congestive) heart failure; N18.4 Chronic kidney disease, stage 4 (severe); E78.5 Hyperlipidemia, unspecified; G89.4 Chronic pain syndrome; K21.9 Gastro-esophageal reflux disease without esophagitis; N40.0 Benign prostatic hyperplasia without lower urinary tract symptoms; I25.10 Atherosclerotic heart disease of native coronary artery without angina pectoris; D64.9 Anemia, unspecified; E11.21 Type 2 diabetes mellitus with diabetic nephropathy; E87.6 Hypokalemia; E66.9 Obesity, unspecified; E11.22 Type 2 diabetes mellitus with diabetic chronic kidney disease; R60.1 Generalized edema; K80.20 Calculus of gallbladder without cholecystitis without obstruction; Z95.1 Presence of aortocoronary bypass graft; Z79.01 Long term (current) use of anticoagulants; Z68.36 Body mass index [BMI] 36.0-36.9, adult
CPT/HCPCS: 36415; 36416; 76770; 80048; 80053; 80069; 81001; 82570; 83036; 83630; 83735; 84156; 84300; 84484; 85025; 87045; 87046; 87328; 87329; 87449; 87899; 93005; 94760; 96361; 96374; A4216; J1644; J1815; J1940; P9047; Q4081

== ENCOUNTER 2019-02-06 08:33 | Outpatient (CLI) | payer MEDICARE, OTHER ==
--- NOTE | 2019-02-06 10:37 | HP ---
HISTORY OF PRESENT ILLNESS: Mr. Woody Knapp is a very pleasant 63-year-old gentleman, accompanied by his sister, who presents [facility] for evaluation of a lesion of the right anterior lower leg. The patient states that he was seen in Urgent Care and subsequently at [facility] in the emergency department in [place] and placed on a course of p.o. antibiotics. At a followup visit with his primary care physician Dr. Jamison, three days later, the patient was referred to the [facility] for further evaluation and treatment. The patient's sister reports the development of blisters associated with the lesion on an intermittent basis. PAST MEDICAL HISTORY: 1. Coronary artery disease. 2. Congestive heart failure. 3. Diabetes mellitus. 4. Hypertension. 5. Benign prostatic hypertrophy. 6. Gastroesophageal reflux disease. 7. Anemia. 8. Chronic kidney disease, stage 4. 9. Anasarca/nephrotic syndrome. PAST SURGICAL HISTORY: 1. Coronary artery bypass grafting x5. 2. Scrotal surgery in October 2015. 3. Neck fusion. 4. Knee surgery. 5. Amputation of right great toe. 6. Left foot surgery. 7. Carpal tunnel release. 8. Back surgery. 9. Surgery for neck abscess. 10. Surgery for bone spurs on right and left feet. MEDICATIONS: The patient does not have a list of his medications with him today. The patient reports that he is presently takin. Colace. 2. MiraLAX. 3. Insulin. 4. Metolazone. 5. Imodium. 6. Atorvastatin. 7. Aspirin 81 mg. 8. Hydralazine. 9. Ranexa. 10. Protonix. 11. Proscar. 12. Flomax. 13. Coreg. 14. Lasix. 15. Gabapentin. 16. Ferrous sulfate. 17. Isosorbide dinitrate. 18. Keflex. 19. Doxycycline. ALLERGIES: NO KNOWN DIAGNOSED ALLERGIES. SOCIAL HISTORY: Social history is negative for tobacco use. The patient admits to rare consumption of alcohol. FAMILY HISTORY: Family history significant for diabetes mellitus. The patient's father and sister were both diagnosed with diabetes mellitus. Family history is negative for coronary artery disease. PHYSICAL EXAMINATION: VITAL SIGNS: Temperature 97.5, pulse 85, blood pressure 139/63. GENERAL: A 63-year-old gentleman, sitting on table in examination room, in no acute distress. HEENT: Normocephalic, atraumatic. NECK: No nuchal rigidity. CHEST: Clear to auscultation. CV: Regular rate and rhythm. ABDOMEN: Soft. EXTREMITIES: Lesion of the right anterior lower leg is present, which measures approximately 5.5 x 4.0 cm. No open wound is present on exam today. No cellulitis of the right lower leg is present on exam today. No maceration of the skin of the right lower leg is present. Edema of the right foot and lower leg is present. Dorsalis pedis pulse or posterior tibial pulse is not palpable on the right. Both pulses are however audible by Doppler. Dorsalis pedis pulse is palpable on the left. Posterior tibial pulse on the left is not palpable, but is audible by Doppler. NEUROLOGIC: Grossly nonfocal. ASSESSMENT AND PLAN: 1. Necrobiosis lipoidica diabeticorum. The patient has been advised to utilize knee-high athletic socks to manage the edema of his lower extremities. I have explained to the patient in view of his absent palpable pulses on the right. He is not an ideal candidate for compression garments. The patient has been instructed to return to the [facility]ound Center should he develop an open wound over the lesion of his right anterior lower leg. The patient and his sister understands and are in agreement with the preceding treatment plan. 2. Coronary artery disease. 3. Congestive heart failure. 4. Diabetes mellitus. The patient has been told that for optimal management of any wound that develops over the right lower extremity, his blood glucoses should remain below 150. 5. Hypertension. 6. Benign prostatic hypertrophy. 7. Gastroesophageal reflux disease. 8. Anemia. 9. Chronic kidney disease, stage 4. 10. Anasarca/nephrotic syndrome. Job ID: [id number]
== END 2019-02-06 08:34 | disposition home or self-care (01) ==
LOC: WCC 08:33
PROVIDERS: ATTEND Family Medicine
DX: E11.620 Type 2 diabetes mellitus with diabetic dermatitis (principal); I13.0 Hypertensive heart and chronic kidney disease with heart failure and stage 1 through stage 4 chronic kidney disease, or unspecified chronic kidney disease; I50.9 Heart failure, unspecified; N18.4 Chronic kidney disease, stage 4 (severe); I25.10 Atherosclerotic heart disease of native coronary artery without angina pectoris; K21.9 Gastro-esophageal reflux disease without esophagitis; D64.9 Anemia, unspecified; N40.0 Benign prostatic hyperplasia without lower urinary tract symptoms; N04.9 Nephrotic syndrome with unspecified morphologic changes

== ENCOUNTER 2020-01-01 16:38 | Outpatient (CLI) | payer MEDICARE ==
[2020-01-01 17:30] LABS: #Eosinphils 0.8 thou/uL (0.0-0.7); #Lymphocytes 1.4 thou/uL (1.20-3.40); #Monocytes 0.8 thou/uL (0.11-0.59); #Neutrophils 4.5 thou/uL (1.40-6.50); %Eosinophils 11.1 % (0.0-10.0); %Lymphocytes 18.9 % (21.0-51.0); %Monocytes 10.5 % (0.0-10.0); %Neutrophils 59.4 % (42.0-75.0); Hemoglobin 9.6 g/dL (14.0-18.0); Mean Corpuscular HGB CONC 33.2 g/dL (32.0-36.0); Mean Corpuscular Hemoglobin 30.7 pg (27.0-31.0); Mean Corpuscular Volume 92.4 fL (78.0-98.0); Mean Platelet Volume 9.8 fL (7.4-10.4); Platelet Count 174 thou/uL (130-400); RBC Distribution Width 12.5 % (11.5-14.5); Red Blood Cell (RBC) Count 3.14 mill/uL (4.70-6.10); White Blood Cell (WBC) Count 7.6 thou/uL (4.8-10.8)
[2020-01-01 17:59] LABS: Anion Gap 17 mmol/L (10-20); BUN (Urea Nitrogen) 102 mg/dL (8.4-25.7); Calc. Creatinine Clearance 0 mL/min (70-130); Calcium 7.9 mg/dL (7.8-10.44); Carbon Dioxide 25 mmol/L (23-31); Chloride 102 mmol/L (98-107); Estimated GFR-MDRD 12; Glucose 473 mg/dL (80-115); Potassium 4.3 mmol/L (3.5-5.1); Sodium 140 mmol/L (136-145)
--- NOTE | 2020-01-02 16:45 | EKG ---
Test Reason : Blood Pressure : / mmHG Vent. Rate : 065 BPM Atrial Rate : 081 BPM P-R Int : 000 ms QRS Dur : 086 ms QT Int : 458 ms P-R-T Axes : 054 083 023 degrees QTc Int : 476 ms Sinus rhythm with 2nd degree A-V block (Mobitz I) with occasional Premature ventricular complexes Abnormal ECG When compared with ECG of 15-JUN-2018 19:10, Premature ventricular complexes are now Present Sinus rhythm is now with 2nd degree A-V block (Mobitz I) Nonspecific T wave abnormality now evident in Inferior leads Nonspecific T wave abnormality no longer evident in Lateral leads Confirmed by DR. Caesar MUIR ([id number]) on 01/02/2020 4:44:55 PM Referred By: FAB Confirmed By:DR. Caesar MUIR
== END 2020-01-01 16:39 | disposition home or self-care (01) ==
LOC: LABBT 16:38
PROVIDERS: ATTEND Surgery
DX: Z01.818 Encounter for other preprocedural examination (principal); N18.6 End stage renal disease
CPT/HCPCS: 80048; 93005; 93010

== ENCOUNTER 2020-01-02 07:05 | Day surgery (SDC) | payer MEDICARE ==
[2020-01-01 16:58] VITALS: BMI 33.7
[2020-01-02] MEDS ORDERED: Protamine Sulfate 50 MG/5 ML VIAL ONE (08:34)
[2020-01-02] MEDS ORDERED: Heparin 10,000 UNITS/1 ML VIAL ONE (08:34)
[2020-01-02] MEDS ORDERED: Heparin 5,000 UNITS/ML VIAL ONE (08:34)
[2020-01-02] MEDS ORDERED: Sodium Chloride 0.9% 20 ML ONE (08:34)
[2020-01-02] MEDS ORDERED: Lidocaine 1% w/Epinephrine 1:100K 20 ML VIAL ONE (08:34)
[2020-01-02] MEDS ORDERED: Bupivacaine 0.25% HCL 30 ML VIAL ONE (08:34)
[2020-01-02] MEDS ORDERED: Fentanyl 100 MCG/2 ML VIAL ONE (08:46)
[2020-01-02] MEDS ORDERED: Propofol 500 MG/50 ML VIAL ONE (08:46)
[2020-01-02] MEDS ORDERED: Bupivacaine HCl 0.5%/Epinephrine 1:200,000/PF 30 ml Vial ONE (11:17)
--- NOTE | 2020-01-02 11:41 | RAD ---
XR Chest 1 View Portable History: Dialysis catheter placement Comparison: Radiograph December 18, 2019 Findings: Right IJ Devon catheter is in place with tip at the mid SVC. No complication. Layering left effusion and left lower lobe consolidation. Mild volume overload. Old left midclavicular fracture. Impression: Uncomplicated placement right IJ dialysis catheter.
--- NOTE | 2020-01-02 12:45 | PDOC.OP ---
Operative Note - Operative Note Operative Note: DATE OF PROCEDURE: 01/02/2020 PROCEDURE: Placement of right internal jugular tunneled hemodialysis catheter with ultrasound and fluoroscopic guidance and left Franny AV fistula. SURGEON: Katiuska Oden M.D. PREOPERATIVE DIAGNOSIS: Renal failure. POSTOPERATIVE DIAGNOSIS: Renal failure. HISTORY: Patient with renal failure and imminent need for dialysis. 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 PROCEDURE: After informed consent was obtained and appropriate preoperative antibiotics were administered, the patient was taken to the Operating Room, placed in the supine position and monitored anesthesia care was administered. The neck and chest were prepped and draped in a standard sterile fashion and the patient placed in Trendelenburg position. A sterile ultrasound probe was used to identify the patent compressible right IJ vein which was accessed under direct ultrasound guidance. A wire was threaded through the needle and confirmed by ultrasound to be within the patent compressible vessel with the tip in the vena cava by fluoroscopy. Local anesthesia was infused to the skin and subcutaneous tissues of the right neck and chest. An infraclavicular incision was made and a catheter tunneled from the infraclavicular to the right IJ access site. The right IJ was sequentially dilated over the wire following which a dilator and sheath were placed over the wire and the dilator and wire removed leaving the sheath in place. The catheter was tunneled through the sheath which was then split and removed leaving the catheter in place. This was confirmed by fluoroscopy to be in good position in the superior vena cava with no kinking of the course of the catheter. Both ports easily aspirated dark venous nonpulsatile blood and easily flushed without resistance. Heparin was instilled to the quantity specified on the hub, and the hub was secured to the skin with 3-0 nylon sutures. The skin incision at the neck was closed in two layers with 4-0 Monocryl suture and Dermabond dressings were placed. The skin at the exit site was snugged up around the catheter with 4-0 Monocryl suture and Dermabond was placed there as well. Once the Dermabond was dry, a Biopatch and Tegaderm dressing was placed at the exit site. Attention was then turned to placement of the left AV fistula. A preoperative block had been placed by anesthesia and adequacy confirmed. The patient's arm was prepped and draped in standard sterile fashion. The palpable cephalic vein and radial artery were marked on the skin. An incision was made between these 2 structures and dissection carried down to the cephalic vein. This was felt to be of adequate caliber and quality to support an AV fistula. The vein was interrogated with cardiac dilators and easily accepted up to a 4 mm dilator. The vein was flushed with heparinized saline and clamped. The radial artery was identified and dissected free and was calcified but was felt to be of adequate caliber and quality to support a fistula. This was dissected free. Heparin was administered systemically and allowed to circulate for 3 minutes. After the heparin had circulated for 3 minutes, the radial artery was clamped proximally and distally. An anterior arteriotomy was created with an 11 blade and extended with Nayak scissors. The vein was spatulated and an end- to-side anastomosis was created with excellent technical result. Prior to tying down the anastomosis, the arterial inflow was released flushing the anastomosis. The anastomosis was then secured and hemostasis was verified. Flow was established first through the fistula following which flow was restored through the artery. The patient had a palpable thrill in the cephalic vein as well as a good Doppler signal to the level of the antecubital fossa. The wound was irrigated and examined for hemostasis was again confirmed to be excellent. The subcutaneous tissues were reapproximated with a running 3-0 Monocryl sutures and the skin was closed with running 4-0 subcuticular Monocryl suture. Dermabond dressings were placed. Prior to leaving the operating room the fistula was again examined by Doppler and a good bruit confirmed. The patient was then taken to recovery in good condition. Estimated blood loss was minimal. There were no complications. There were no specimens.
== END 2020-01-02 12:15 | disposition home or self-care (01) ==
LOC: SDC 07:05
PROVIDERS: ATTEND Surgery
PROC: 031C3ZF Bypass Left Radial Artery to Lower Arm Vein, Percutaneous Approach (ICD-10-PCS; principal; 2020-01-02)
PROC: 05HY33Z Insertion of Infusion Device into Upper Vein, Percutaneous Approach (ICD-10-PCS; 2020-01-02)
DX: I13.2 Hypertensive heart and chronic kidney disease with heart failure and with stage 5 chronic kidney disease, or end stage renal disease (principal); E11.22 Type 2 diabetes mellitus with diabetic chronic kidney disease; N18.6 End stage renal disease; I50.30 Unspecified diastolic (congestive) heart failure; I25.10 Atherosclerotic heart disease of native coronary artery without angina pectoris; Z79.2 Long term (current) use of antibiotics; Z79.82 Long term (current) use of aspirin; Z79.899 Other long term (current) drug therapy; N40.0 Benign prostatic hyperplasia without lower urinary tract symptoms; K21.9 Gastro-esophageal reflux disease without esophagitis; G47.33 Obstructive sleep apnea (adult) (pediatric); Z99.89 Dependence on other enabling machines and devices; Z95.1 Presence of aortocoronary bypass graft; Z95.5 Presence of coronary angioplasty implant and graft
CPT/HCPCS: 36558; 36821; 71045; 82962; C1752; 36416; J0670; J0690; J1644; J2704; J2720; J3010; S0020

== ENCOUNTER 2020-05-21 12:23 | Inpatient (IN) | payer MEDICARE ==
[2020-05-21] MEDS ORDERED: Lorazepam 2 MG/ML VIAL ONE (14:22)
[2020-05-21] MEDS ORDERED: Acetaminophen 325 MG TAB PO PRN (15:42)
[2020-05-21] MEDS ORDERED: Ondansetron ODT 4 MG TAB PO PRN (15:42)
[2020-05-21] MEDS ORDERED: HumaLOG 300 UNITS/3 ML VIAL SC PRN (17:06)
[2020-05-21] MEDS ORDERED: Dextrose 50% Abboject 50 ML SYRINGE SLOW IVP PRN (17:06)
[2020-05-21] MEDS ORDERED: Dextrose 5% in Water 1,000 ML IV PRN (17:06)
[2020-05-21 17:39] LABS: #Eosinphils 0.1 thou/uL (0.0-0.7); #Lymphocytes 0.9 thou/uL (1.20-3.40); #Monocytes 0.9 thou/uL (0.11-0.59); #Neutrophils 7.1 thou/uL (1.40-6.50); %Basophils 0.1 % (0.0-1.0); %Eosinophils 1.5 % (0.0-10.0); %Lymphocytes 9.5 % (21.0-51.0); %Monocytes 9.7 % (0.0-10.0); %Neutrophils 79.3 % (42.0-75.0); Hemoglobin 9.2 g/dL (14.0-18.0); Mean Corpuscular HGB CONC 31.4 g/dL (32.0-36.0); Mean Corpuscular Hemoglobin 29.1 pg (27.0-31.0); Mean Corpuscular Volume 92.9 fL (78.0-98.0); Mean Platelet Volume 8.3 fL (7.4-10.4); Platelet Count 242 thou/uL (130-400); RBC Distribution Width 13.8 % (11.5-14.5); Red Blood Cell (RBC) Count 3.15 mill/uL (4.70-6.10)
--- NOTE | 2020-05-21 17:48 | HP ---
PCP: Dr. Briseyda Jamison. CHIEF COMPLAINT: Constipation. HISTORY OF PRESENT ILLNESS: The patient is a 64-year-old male with past medical history significant for end-stage renal disease, on dialysis; second-degree AV block, type 1; diabetes. He presented to the ER today for constipation x3 days. He states that ever since he started dialysis, he has kind of felt tired on and off , but recently he has felt more incredibly fatigued, and for the past 3 days, he has not had a bowel movement. Three days prior to that, he also felt constipated, but he was able to finally have a bowel movement after 6 hours of trying. Last night he tossed and turned and woke up with a 10/10 pain in his umbilical area. He has had no vomiting. No nausea. No contact with sick person. Denies fever. No chest pain. No shortness of breath. He has not tried anything to relieve his symptoms. He was transferred today from [facility]. They did a scan over at [facility] that showed a small bowel obstruction, prior to being transferred over here. Today in our ER, they completed the EKG. PAST MEDICAL HISTORY: End-stage renal disease, dialysis on Monday, Monday, Monday; second-degree AV block type 1 which he is wearing an event monitor for; diabetes, type 2; hyperlipidemia; and hypertension. PAST SURGICAL HISTORY: CABG x5, great toe on right foot amputated from diabetes complications, dialysis shunt to left arm, right knee surgery from rodeo accident. ALLERGIES: NO KNOWN DRUG ALLERGIES. MEDICATIONS: 1. Atorvastatin 40 mg. 2. Aspirin 81 mg. 3. Pantoprazole 40 mg. 4. Finasteride 5 mg. 5. Gabapentin 300 mg. 6. Tamsulosin 0.4 mg. SOCIAL HISTORY: The patient lives at home with his sister. He does not work. Denies any alcohol, drug, or tobacco use. FAMILY HISTORY: Dad had diabetes. Mother and brother both passed from cancer. REVIEW OF SYSTEMS: The patient states he is always short of breath, which was why he saw Dr. Roland and was placed on the event monitor. All other review of systems negative unless noted in the HPI. PHYSICAL EXAMINATION: VITAL SIGNS: Blood pressure 118/69, pulse 65, respiratory rate 18, temperature 98.3, zero pain, 98% on room air O2 saturation. GENERAL: The patient appears nontoxic. HEENT: Head, atraumatic and normocephalic. Eyes, extraocular muscles intact. PERRLA. Mucous membranes moist. RESPIRATORY: Clear to auscultation bilaterally. Normal chest expansion. No rhonchi. No wheezes. No rales. CARDIOVASCULAR: Regular rate and rhythm, with some dropped beats. No murmurs. No gallops. No rubs. ABDOMEN: Distended, soft. Bowel sounds normal. EXTREMITIES: Posterior tibial pulses are intact. No edema. No cyanosis. NEUROLOGIC: The patient is awake and responsive. SKIN: Warm, dry, and intact. LABORATORY DATA AND IMAGING: EKG showed a sinus rhythm with second-degree AV block, Mobitz-I; heart rate 65. No other lab work completed here. IMPRESSION AND PLAN: Admit the patient for a small bowel obstruction, will have NG tube placed to help with decompression, and IV fluid started. Discussed with Dr. Holley and she would like to hold off on Surgical consultation at this time. Consulted Nephrology as he is a dialysis patient. Also consulted Cardiology for his event monitor as it was due to come off today. The patient will remain n.p.o. at this time. No pharmacological VTE prophylaxis in case the patient is in need of surgery. We will manage pain at the patient's request. We will monitor the patient's vital signs and treat hypertension with the patient's home medications once reconciled. We will also monitor Accu-Cheks before meals and at bedtime, and cover with sliding scale insulin as needed. The patient wishes to be a full code. His surrogate decision maker is his sister, Judy Knapp. The patient has been discussed with Dr. Holley. Job ID: [id number] [facility]
[2020-05-21 17:52] LABS: Lactic Acid 0.8 mmol/L (0.5-2.2)
[2020-05-21 17:58] LABS: ALT (SGPT) 8 U/L (8-55); AST (SGOT) 13 U/L (5-34); Albumin 3.2 g/dL (3.4-4.8); Alkaline Phosphatase 115 U/L (40-110); BUN (Urea Nitrogen) 32 mg/dL (8.4-25.7); Bilirubin, Total 0.4 mg/dL (0.2-1.2); Calc. Creatinine Clearance 0 mL/min (70-130); Calcium 7.9 mg/dL (7.8-10.44); Estimated GFR-MDRD 18; Globulin 3.6 g/dL (2.4-3.5); Glucose 204 mg/dL (80-115); Lipase 4 U/L (8-78); Magnesium 1.9 mg/dL (1.6-2.6); Protein, Total 6.8 g/dL (5.8-8.1)
[2020-05-21 18:08] LABS: Anion Gap 16 mmol/L (10-20); Carbon Dioxide 30 mmol/L (23-31); Chloride 98 mmol/L (98-107); Potassium 4.4 mmol/L (3.5-5.1); Sodium 140 mmol/L (136-145)
--- NOTE | 2020-05-21 18:35 | CON ---
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 HISTORY OF PRESENT ILLNESS: Mr. Knapp is a pleasant 64-year-old white gentleman, very well known to myself, who comes to the hospital for evaluation of abdominal pain. He was seen in the ER, admitted for small bowel obstruction. Cardiology is being asked to see him as he has an event monitor in place and they wanted to have a guidance on this. He had a telemedicine visit just a few days ago and he was advised to do a Ramamia 7-day monitor, so he is on his last day of monitoring today. We are supposed to take it off today and sent it back. On my evaluation, Mr. Ibarra denies any chest pain, tightness, pressure. No shortness of breath, only abdominal pain. PAST MEDICAL HISTORY: 1. Ischemic cardiomyopathy with last EF at 40% to 45%. 2. Coronary artery disease, status post CABG. 3. Type 2 diabetes. 4. Hypertension. 5. BPH. 6. GERD. 7. Anemia. 8. Chronic kidney disease stage 5, now on end-stage renal disease, on hemodialysis. SURGICAL HISTORY: 1. CABG x5 in the past. 2. Scrotal surgery in 2015. 3. Neck fusion. 4. Knee surgery. 5. Right great toe amputation. 6. Left foot surgery. 7. Carpal tunnel release. 8. Back surgery. 9. Surgery for neck abscess. 10. Bone spurs around left feet. OUTPATIENT MEDICATIONS: 1. Hydralazine. 2. Tamsulosin. 3. Ranexa. 4. Metoprolol. 5. 70/30 insulin. 6. Multivitamin. 7. Loratadine. 8. Imdur. 9. Humalog. 10. Gabapentin. 11. Lasix. 12. Finasteride. 13. Ferrous sulfate. 14. Docusate. 15. Coreg. 16. Calcitriol. 17. Atorvastatin. 18. Aspirin. ALLERGIES: NO KNOWN DRUG ALLERGIES. SOCIAL HISTORY: No alcohol, tobacco, or drugs. FAMILY HISTORY: Noncontributory. REVIEW OF SYSTEMS: A 12-point review of systems was done and was found to be negative other than stated in the history of present illness. PHYSICAL EXAMINATION: VITAL SIGNS: Temperature 98.2, pulse 78, respiratory rate 18, satting 98% on room air, blood pressure 139/67. GENERAL: Awake alert oriented x3 in no distress. HEENT: Normocephalic and atraumatic. NECK: Supple. LUNGS: Clear. CARDIOVASCULAR: S1, S2. No S3 or S4. No murmurs. ABDOMEN: Soft with positive bowel sounds. EXTREMITIES: No edema. SKIN: Warm and dry. LABORATORY DATA: Laboratory work was reviewed. ASSESSMENT/PLAN: 1. Small bowel obstruction. 2. Dizziness, which was the reason for doing a 7-day event monitor. PLAN: 1. We will get the event monitor from him. We will take it to my office. It is after hours at the time of my dictation when I get the monitor from him, so we will get the information from it tomorrow and we will see if there has been any tachy or humza arrhythmias that we need to be concerned about. 2. Currently, I agree with primary team's management of his small bowel obstruction. He feels that his dizziness may have been related to this all the time. We will see once he gets unobstructed. 3. No acute coronary syndrome at this time. 4. CBC is stable. Thank you for letting us to participate in the care of this patient. We will follow. Job ID: [id number]
[2020-05-21] MEDS: Sodium Chloride 0.9% 1,000 ML IV SCH (18:59)
[2020-05-21 19:43] VITALS: BMI 31.6
[2020-05-21] MEDS ORDERED: Morphine 2 MG/ML VIAL SLOW IVP SCH (21:15)
[2020-05-21] MEDS ORDERED: Benzocaine 20% Spray 60 ML CAN PO SCH (21:15)
[2020-05-22] MEDS: hydrALAZINE 20 MG/ML VIAL SLOW IVP PRN (04:44)
[2020-05-22 05:56] LABS: #Eosinphils 0.2 thou/uL (0.0-0.7); #Lymphocytes 1.2 thou/uL (1.20-3.40); #Monocytes 0.9 thou/uL (0.11-0.59); #Neutrophils 6.4 thou/uL (1.40-6.50); %Basophils 0.3 % (0.0-1.0); %Eosinophils 2.4 % (0.0-10.0); %Lymphocytes 14.2 % (21.0-51.0); %Monocytes 9.8 % (0.0-10.0); %Neutrophils 73.3 % (42.0-75.0); Hemoglobin 8.6 g/dL (14.0-18.0); Mean Corpuscular HGB CONC 31.1 g/dL (32.0-36.0); Mean Corpuscular Hemoglobin 28.5 pg (27.0-31.0); Mean Corpuscular Volume 91.8 fL (78.0-98.0); Mean Platelet Volume 8.8 fL (7.4-10.4); Platelet Count 222 thou/uL (130-400); RBC Distribution Width 13.8 % (11.5-14.5); White Blood Cell (WBC) Count 8.7 thou/uL (4.8-10.8)
[2020-05-22 06:17] LABS: Anion Gap 12 mmol/L (10-20); BUN (Urea Nitrogen) 36 mg/dL (8.4-25.7); Calc. Creatinine Clearance 31 mL/min (70-130); Calcium 7.8 mg/dL (7.8-10.44); Carbon Dioxide 32 mmol/L (23-31); Chloride 100 mmol/L (98-107); Estimated GFR-MDRD 17; Glucose 146 mg/dL (80-115); Potassium 3.9 mmol/L (3.5-5.1); Sodium 140 mmol/L (136-145)
[2020-05-22] MEDS: Sodium Chloride 0.9% 1,000 ML IV SCH ×2 (08:40→23:11)
[2020-05-22] MEDS ORDERED: Prevnar 13-Val Conj/PF 0.5 ML SYRINGE IM ONE (09:00)
[2020-05-22] MEDS ORDERED: EPOETIN ALFA-EPBX (ESRD) 4,000 UNIT/ML VIAL SC SCH (09:45)
--- NOTE | 2020-05-22 10:44 | CON ---
DATE OF CONSULTATION: HISTORY OF PRESENT ILLNESS: Mr. Knapp is a 64-year-old white male with ESRD and was admitted due to severe obstipation. An attempt to place an NG tube was not successful since the patient declined. Initial KUB showed a small bowel obstruction. He tells me this morning his abdominal pain is actually better. We are being consulted for his maintenance hemodialysis as well as management of his ESRD. REVIEW OF SYSTEMS: Positive for abdominal pain. Positive for nausea. Positive for constipation. No fever or chills. No diarrhea. No shortness of breath. No joint pains. No new skin rash. Appetite and energy level were fairly decreased. No headache. No diplopia. No syncopal episode. HOME MEDICATIONS: Included: 1. Tamsulosin 0.4 mg daily. 2. Gabapentin 300 mg at bedtime. 3. Finasteride 5 mg once a day. 4. Protonix 40 mg tablet once a day. 5. Aspirin 81 mg tablet once a day. 6. Atorvastatin 40 mg tablet at bedtime. CURRENT HOSPITAL MEDICATIONS: Include the followin. He is on hydralazine 10 mg IV q.6. 2. Zofran 4 mg q.6 p.r.n. 3. Normal saline 75 mL/hour. PAST MEDICAL HISTORY: 1. The patient has ESRD and currently on maintenance hemodialysis Monday, Monday, and Monday. 2. Hyperlipidemia. 3. Type 2 diabetes mellitus. 4. Diabetic nephropathy. 5. History of chronic diastolic heart failure. 6. Hyperlipidemia. 7. Hypertension. 8. Coronary artery disease. PAST SURGICAL HISTORY: Status post cardiac cath, status post right knee surgery, status post bilateral foot surgery, status post back surgery, status post carpal tunnel release, status post CABG, status post colonoscopy, status post cuffed hemodialysis catheter placement, and status post AV fistula placement. SOCIAL HISTORY: The patient lives in [place]. He is currently medically disabled. 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 He is single, lives with his sister. No children. No IV drug abuse. No smoking. No alcohol use. Education, high school. ALLERGIES: NONE. TRAUMA: Status post right knee torn ligament. IMMUNIZATIONS: Up-to-date. HOSPITALIZATIONS: Please see past medical history. FAMILY HISTORY: No family history of ESRD. PHYSICAL EXAMINATION: VITAL SIGNS: Blood pressure was noted at 155/63, heart rate 74, respiratory rate 14, temperature 97.8, and O2 saturation 93%. GENERAL: The patient is awake, alert, comfortable, not in any distress. Obese. SKIN: Adequate turgor. HEENT: He has slightly pale conjunctivae. Anicteric sclerae. NECK: No neck mass. No carotid bruits. No JVD. CHEST: No deformities. LUNGS: Clear breath sounds. No wheezing. No crackles. HEART: Normal sinus rhythm. No murmurs, gallops, or rubs. ABDOMEN: Globular, soft, nontender. No masses. Positive for bowel sounds. EXTREMITIES: No edema. LABORATORIES: Of May 22, 2020; white count 8.7, hemoglobin 8.6. Sodium 140, potassium 3.9, chloride 100, carbon dioxide 32, BUN 36, creatinine 3.62, glucose 146, and calcium 7.8. ASSESSMENT AND PLAN: 1. End-stage renal disease, stable. We will continue current Monday, Monday, and Monday hemodialysis regimen. Last reviewed Kt/V suggests he has borderline Kt/V. We will continue current hemodialysis regimen. Fluid removal only as tolerated. 2. Anemia. Restart Epogen 7500 units subcu every week. 3. Obstipation/small bowel obstruction. Continue supportive care. No indication for any emergent hemodialysis at the present time. Agree with current management. Job ID: [id number]
[2020-05-22] MEDS: Metoprolol Tartrate 5 MG/5 ML VIAL IVP SCH ×2 (11:41→19:27)
--- NOTE | 2020-05-22 14:18 | PDOC.CPN ---
- Subjective Date: 05/22/20 Time: 14:16 Interval history: He is doing well. He denies angina , no SOB. - Review of Systems General: denies: fever/chills, weight/appetite/sleep changes, night sweats, fatigue Respiratory: denies: cough, congestion, shortness of breath, exercise intolerance Cardiovascular: denies: chest pain, palpitation, edema, paroxysmal nocturnal dyspnea, orthopnea Gastrointestinal: reports: nausea. denies: vomiting, diarrhea, constipation, abd pain, GI bleeding Musculoskeletal: denies: pain, tenderness, stiffness, swelling, arthritis/ arthralgias Neurological: denies: numbness, syncope, seizure, weakness - Objective Allergies/Adverse Reactions: Allergies Allergy/AdvReac Type Severity Reaction Status Date / Time No Known Allergies Allergy Verified 05/21/20 19:58 Visit Medications: Current Medications Acetaminophen (Tylenol) 650 mg PO Q4H PRN PRN Reason: Headache/Fever/Mild Pain (1-3) Dextrose/Water (Dextrose 50%) 25 gm SLOW IVP PRN PRN PRN Reason: Hypoglycemia Epoetin Jg-epbx (Retacrit) 7,500 unit SC Q7D [facility] Last Admin: 05/22/20 11:41 Dose: 7,500 unit Glucagon (Glucagon) 1 mg IM PRN PRN PRN Reason: Hypoglycemia Hydralazine HCl (Apresoline) 10 mg SLOW IVP Q6H PRN PRN Reason: SBP Greater Than 170 Last Admin: 05/22/20 04:44 Dose: 10 mg Dextrose/Water (D5w) 1,000 mls @ 0 mls/hr IV .Q0M PRN PRN Reason: Hypoglycemia Sodium Chloride (Normal Saline 0.9%) 1,000 mls @ 75 mls/hr IV .[id number] [facility] Last Admin: 05/22/20 08:40 Dose: 1,000 mls Insulin Human Lispro (Humalog) 0 units SC .MILD SLIDING SCALE PRN PRN Reason: Mild Correctional Scale Insulin Human Lispro (Humalog) 0 units SC .BEDTIME SLIDING SC PRN PRN Reason: Bedtime Correctional Scale Metoprolol Tartrate (Lopressor) 5 mg IVP Q6HR [facility] Last Admin: 05/22/20 11:41 Dose: 5 mg Ondansetron HCl (Zofran Odt) 4 mg PO Q6H PRN PRN Reason: Nausea/Vomiting Vital Signs & Weight: Vital Signs Temp Pulse Resp BP BP Pulse Ox 05/22/20 13:08 97.7 F 65 14 155/65 H 94 L 05/22/20 07:39 97.8 F 74 14 155/63 H 93 L 05/22/20 05:54 159/63 H 05/22/20 04:44 65 189/73 H 05/22/20 04:17 97.7 F 65 18 189/73 H 96 Weight 240 lb - Physical Exam General: alert & oriented x3 HEENT: mucus membranes moist Neck: supple neck Cardiac: regular rate and rhythm Lungs: normal breath sounds Neuro: grossly intact Abdomen: active bowel sounds Extremities: no edema Skin: clear Musculoskeletal: no pain - Labs Result Diagrams: 05/22/20 05:39 05/22/20 05:39 - Assessment/Plan Assessment/Plan: 1. Small bowel obstruction. 2. ESRD 3. Ischemic CM last EF at 40-45% 4. 2-1 AV block 5. CAD, s/p CABG. 6. SVT PLAN: - He had several runs of Mobitz type 1 but at [facility] he has 2-1 AV block. This is a class 1 indication for a PPM. - Will have EP evaluate for possible PPM vs AICD. Will get echo to see LV function. - Also had a brief run sof what appears to bve non sustained SVT. - He has not been on any AV janice blocking agents due to bradycardia in the past.
--- NOTE | 2020-05-22 14:47 | PDOC.HOSPP ---
- Subjective Encounter Date: 05/22/20 Encounter Time: 11:00 Subjective: passing 'some' gas, no sig.. abd pain. not able to handle putting NGT. pt transferred from [facility] after diagnosed there having SBO. - Objective Vital Signs & Weight: Vital Signs (12 hours) Temp Pulse Resp BP BP Pulse Ox 05/22/20 13:08 97.7 F 65 14 155/65 H 94 L 05/22/20 07:39 97.8 F 74 14 155/63 H 93 L 05/22/20 05:54 159/63 H 05/22/20 04:44 65 189/73 H 05/22/20 04:17 97.7 F 65 18 189/73 H 96 Weight Weight 240 lb I&O: 05/21/20 05/22/20 05/23/20 06:59 06:59 06:59 Intake Total 900 Output Total 0 Balance 900 Result Diagrams: 05/22/20 05:39 05/22/20 05:39 Additional Labs: Accuchecks 05/22/20 05/22/20 05/22/20 11:00 05:01 00:06 POC Glucose 132 H 151 H 154 H Hospitalist ROS - Medication Medications: Active Medications Generic Name Dose Route Start Last Admin Trade Name Freq PRN Reason Stop Dose Admin Epoetin Jg-epbx 7,500 unit 05/22/20 09:45 05/22/20 11:41 Retacrit SC 7,500 unit Q7D [facility]ON Administration Hydralazine HCl 10 mg 05/22/20 04:32 05/22/20 04:44 Apresoline SLOW IVP 10 mg Q6H PRN Administration SBP Greater Than 170 Sodium Chloride 1,000 mls @ 75 mls/hr 05/21/20 17:15 05/22/20 08:40 Normal Saline 0.9% IV 1,000 mls .[id number] NIXON Administration Metoprolol Tartrate 5 mg 05/22/20 12:00 05/22/20 11:41 Lopressor IVP 5 mg Q6HR NIXON Administration - Exam General Appearance: awake alert Eye: PERRL ENT: normocephalic atraumatic Neck: supple Heart: RRR Respiratory: CTAB, normal chest expansion Gastrointestinal: distended, diminished bowl sounds Neurological: cranial nerve grossly intact, no focal deficits Psychiatric: A&O x 3 Hosp A/P - Plan SBO -seems improving, as no pain and passing gas - will try CLD - will get kub here, as prior image outside facility - ambulate Mobitz type 1 AVB I-CMY with ef of 45% -humza in the past w.. blockers - echo -plan for AICD/pacer evaluation ESRD on HD -Dr. Sebastian following. full code
[2020-05-22] MEDS: hydrALAZINE 25 MG TAB PO SCH ×2 (15:00→20:51)
--- NOTE | 2020-05-22 18:18 | CON ---
DATE OF CONSULTATION: 05/22/2020 HISTORY OF PRESENT ILLNESS: I am seeing Mr. Knapp at our [facility] as an Electrophysiology functional consultant. His problems are; 1. Recurrent Mobitz type 1 second-degree AV block, on occasion 2:1 AV block is seen, mostly correlating to sleep time without his CPAP machine. 2. Chronic systolic congestive heart failure with ischemic cardiomyopathy: a. Reduced LVEF on echo at 40% to 45% in the past in December 2015, documented in the chart. b. Prior history of coronary artery bypass grafting surgery in the past. 3. End-stage renal disease, on hemodialysis via a left upper extremity AV fistula. 4. Obstructive sleep apnea, on CPAP. 5. Type 2 diabetes. 6. Hypertension. 7. History of anemia. ALLERGIES: NONE NOTED. MEDICATIONS: At home included; 1. Tamsulosin. 2. Pantoprazole. 3. Aspirin. 4. Lipitor. 5. Finasteride. 6. Gabapentin. 7. Ranexa. 8. Multivitamin. 9. Docusate sodium. 10. Vitamin D3. 11. Sertraline. 12. Calcium acetate. SUBJECTIVE: Mr. Knapp is here in the hospital possibly due to GI issues. He has a small bowel obstruction documented. He has abdominal discomfort. He also notices marked fatigue for past 3 days and is fairly constipated. He had umbilical area pain. He denies vomiting or nausea. No fever, chills, or cough. Discharged from [facility] yesterday. PAST MEDICAL HISTORY: As above, including also BPH, GERD, chronic anemia, kidney disease, hypertension, diabetes, bypass surgery, and reduced LVEF in the past. SURGICAL HISTORY: Significant for scrotal surgery in 2015, neck fusion, knee surgery, right great toe amputation, left foot surgery, carpal tunnel release, back surgery, surgery for neck abscess and bone spurs. SOCIAL HISTORY: The patient denies smoking, EtOH, or drug abuse. He lives at home with his sister. FAMILY HISTORY: Noncontributory. OBJECTIVE DATA: VITAL SIGNS: Blood pressure , heart rate 65, respirations 14, temperature 97.7 degrees Fahrenheit. GENERAL: Reveals an alert and oriented man, in no apparent distress. NECK: Supple. Jugular veins not distended. CHEST: Coarse without crackles. HEART: Sounds are regular to rate and rhythm. No murmur or gallop. ABDOMEN: Benign. Bowel sounds positive. EXTREMITIES: Lower extremity without edema, clubbing, or cyanosis. Pulses are adequate. NEUROLOGIC: The patient is nonfocal. MUSCULOSKELETAL: Without joint swelling or deformity. SKIN: Without rash. DATABASE: The EKG from 04/21/2020, reveals sinus rhythm, Mobitz type 1 second-degree AV block, ventricular rate is 65 beats per minute, atrial rate is about 80 beats per minute. The home monitor reviewed from Dr. Roland from May 14 to May 21 revealed persistent episodes of Mobitz type 1 second-degree AV block with episodes of 2:1 AV block, mostly at dog walker hours. He does admit not being able to sleep with his CPAP for last 3 days. Atrial fibrillation falsely noted by the monitor. The strips do reveal sinus rhythm, sinus tachycardia with variable AV conduction, no true atrial fibrillation was seen on the monitor. LABORATORY DATA: White cell count is 8.7, hemoglobin 8.6, platelet count is 222. Sodium 140, potassium 3.9, BUN is 36, creatinine 3.62. AST and ALT are 13 and 8. ASSESSMENT AND PLAN: Mr. Knapp is a pleasant 64-year-old man with history of diabetes, advanced kidney disease, on hemodialysis, also coronary artery disease with prior bypass surgery with ischemic cardiomyopathy. The last echocardiogram reveals [id number] reduction of LVEF at 40% to 45%. He is now presenting with small bowel obstruction and being evaluated for that. Recent monitor does reveal persisting Mobitz type 1 second-degree AV block, on occasion 2:1 AV block is noted as well. His baseline QRS is narrow. I suspect the block is likely to be on the AV janice level. I was consulted for consideration of pacing in this gentleman. My impression is; 1. First-degree AV block, although likely to be related to an AV janice level block, possibly worsened by episodes of vagotonia with uncontrolled sleep apnea while he is not wearing a CPAP mask, also possibly his abdominal discomfort. He is not on any AV janice blocking agents to change or reduce. He has suboptimal AV synchrony, it likely could contribute to his significant dyspnea and fatigue symptoms, especially if LVEF is still found to be abnormal. Correction of this with AV synchronous pacemaker could be considered. We will likely render him high-grade of RV pacing. Hence, possibly biventricular pacing or His bundle pacing is a strong consideration for him. Also, should LVEF be reduced under 35% or equal to 35%, an ICD implantation could be a consideration. Echocardiogram is pending. 2. We discussed the potential consideration for pacemaker. At this point, I would continue to observe him and work up his small bowel obstruction. Should the symptoms and block persist after that resolved, the above will be readdressed possibly on Monday. We will keep him n.p.o. for that at that time. 3. We discussed also the pros and cons of pacing in view of his renal dysfunction, vascular access issues as well as high risk of infection also discussed. This will be also taken in consideration as the final decision made for pacing, likely on Monday. Job ID: [id number] MTDD
--- NOTE | 2020-05-22 23:03 | RAD ---
Abdomen one view HISTORY: Abdominal pain. FINDINGS: Large amount stool is present throughout the colon and rectum. Small bowel gas pattern is n onspecific. No radiopaque foreign bodies are apparent. There is calcification of the vas deferens and arterial structures. IMPRESSION : Constipation. Atherosclerosis.
[2020-05-23] MEDS: Metoprolol Tartrate 5 MG/5 ML VIAL IVP SCH ×2 (00:15→05:09)
[2020-05-23] MEDS: Melatonin 3 MG TAB PO PRN (01:09)
[2020-05-23 04:29] LABS: #Eosinphils 0.2 thou/uL (0.0-0.7); #Lymphocytes 1.2 thou/uL (1.20-3.40); #Monocytes 0.9 thou/uL (0.11-0.59); #Neutrophils 5.1 thou/uL (1.40-6.50); %Basophils 0.2 % (0.0-1.0); %Eosinophils 3.2 % (0.0-10.0); %Lymphocytes 16.1 % (21.0-51.0); %Monocytes 12.4 % (0.0-10.0); Hemoglobin 8.6 g/dL (14.0-18.0); Mean Corpuscular Hemoglobin 28.3 pg (27.0-31.0); Mean Corpuscular Volume 91.2 fL (78.0-98.0); Mean Platelet Volume 8.4 fL (7.4-10.4); Platelet Count 260 thou/uL (130-400); Red Blood Cell (RBC) Count 3.02 mill/uL (4.70-6.10); White Blood Cell (WBC) Count 7.5 thou/uL (4.8-10.8)
[2020-05-23 05:03] LABS: Anion Gap 11 mmol/L (10-20); BUN (Urea Nitrogen) 21 mg/dL (8.4-25.7); Calc. Creatinine Clearance 41 mL/min (70-130); Calcium 7.3 mg/dL (7.8-10.44); Carbon Dioxide 28 mmol/L (23-31); Chloride 103 mmol/L (98-107); Estimated GFR-MDRD 23; Glucose 123 mg/dL (80-115); Potassium 3.5 mmol/L (3.5-5.1); Sodium 138 mmol/L (136-145)
[2020-05-23] MEDS: hydrALAZINE 25 MG TAB PO SCH ×3 (07:47→19:52)
[2020-05-23] MEDS: Sodium Chloride 0.9% 1,000 ML IV SCH (07:48)
--- NOTE | 2020-05-23 09:53 | PRG ---
DATE OF SERVICE: 05/23/2020 SUBJECTIVE: Mr. Knapp is a 64-year-old white male with ESRD and was admitted for abdominal pain/obstipation. Initial x-ray showed small-bowel obstruction. A repeat KUB was done, which showed significant amount of stool in the colon. The abdominal pain is actually improved. The patient was also seen by the hall clerk due to recurrent Mobitz type I second-degree AV block. He has also a history of decreased EF. We are following up this patient for management of his ESRD and maintenance hemodialysis. This morning, he denies any chest pain or shortness of breath. OBJECTIVE: VITAL SIGNS: Blood pressure is 144/70, heart rate 54, respiratory rate 18, temperature 98, O2 saturation 97%, and respiratory rate 18. GENERAL: Awake, alert, comfortable, not in overt distress. SKIN: Adequate turgor. HEENT: Slightly pale conjunctivae. Anicteric sclerae. NECK: No neck mass. No carotid bruits. No JVD. CHEST: No deformities. LUNGS: Clear breath sounds. No wheezing. No crackles. HEART: Normal sinus rhythm. No murmur. No gallops. No rubs. ABDOMEN: Globular, soft, nontender. No masses. EXTREMITIES: No edema. No deformities. MEDICATIONS: Medications of May 23, 2020, reviewed. LABORATORY DATA: Laboratories of May 23, 2020; white count 7.5, hemoglobin 8.6, sodium 138, potassium 3.5, chloride 103, carbon dioxide 28, BUN 21, creatinine 2.76, and calcium 7.3. Abdominal x-ray of May 22, 2020 - it showed large amount of stool present throughout the colon and rectum. Small bowel gas is nonspecific. ASSESSMENT AND PLAN: 1. Abdominal pain - secondary to obstipation/constipation - we will start lactulose 30 g t.i.d. until he has a regular bowel movement, then we can decrease this to once a day. 2. End-stage renal failure, stable. Tolerated hemodialysis yesterday. Fluid removal was done. We will continue current Monday, Monday, and Monday hemodialysis regimen. Review of the last Kt/V suggests he is adequately dialyzed. 3. Bradycardia/atrioventricular heart block - Cardiology is following. As per recommendation, we will observe over the week. 4. Anemia - on weekly Epogen regimen. 5. Recheck basic metabolic panel and CBC in the a.m. Job ID: [id number]
[2020-05-23] MEDS ORDERED: Bisacodyl 10 MG SUPP PR PRN (11:26)
[2020-05-23] MEDS ORDERED: Fleet Enema 133 ML BOT PR SCH (11:30)
[2020-05-23] MEDS: hydrALAZINE 20 MG/ML VIAL SLOW IVP PRN (12:21)
--- NOTE | 2020-05-23 13:29 | PDOC.HOSPP ---
- Subjective Encounter Date: 05/23/20 Encounter Time: 09:50 Subjective: pt had massive BM around 1pm. this am, ok wihtout discomfort and plan to give DE and enema PRN. we dont need it now. echo ef of 50% - Objective Vital Signs & Weight: Vital Signs (12 hours) Temp Pulse Resp BP Pulse Ox 05/23/20 12:19 98.2 F 65 16 179/79 H 97 05/23/20 07:45 98 F 54 L 18 144/70 H 97 05/23/20 04:22 98.1 F 62 16 136/64 96 Weight Weight 237 lb 1.6 oz I&O: 05/22/20 05/23/20 05/24/20 06:59 06:59 06:59 Intake Total 1890 Output Total 0 Balance 1890 Result Diagrams: 05/23/20 04:10 05/23/20 04:10 Additional Labs: Accuchecks 05/23/20 05/22/20 05:39 20:49 POC Glucose 134 H 208 H Hospitalist ROS - Medication Medications: Active Medications Generic Name Dose Route Start Last Admin Trade Name Freq PRN Reason Stop Dose Admin Epoetin Jg-epbx 7,500 unit 05/22/20 09:45 05/22/20 11:41 Retacrit SC 7,500 unit Q7D [facility] Administration Hydralazine HCl 10 mg 05/22/20 04:32 05/23/20 12:21 Apresoline SLOW IVP 10 mg Q6H PRN Administration SBP Greater Than 170 Hydralazine HCl 25 mg 05/22/20 15:00 05/23/20 07:47 Apresoline PO 25 mg TID NIXON Administration Sodium Chloride 1,000 mls @ 75 mls/hr 05/21/20 17:15 05/23/20 07:48 Normal Saline 0.9% IV 1,000 mls .[id number] NIXON Administration Melatonin 3 mg 05/23/20 01:00 05/23/20 01:09 Melatonin PO 3 mg HS PRN Administration Insomnia - Exam General Appearance: NAD, awake alert Eye: PERRL ENT: normocephalic atraumatic Neck: supple Heart: RRR, normal peripheral pulses Respiratory: CTAB, normal chest expansion Gastrointestinal: soft, normal bowel sounds, distended Neurological: no focal deficits Psychiatric: normal affect, normal behavior, A&O x 3 Hosp A/P - Plan SBO ruled out xray here, shows lot of stool and small bowel - non-specific gas pattern severe constipation -resolved. -start soft and advance the diet. -off IVF Mobitz type 1 AVB I-CMY with ef of 45% -humza in the past w.. blockers - echo shows EF of 50% -plan for possible pacer evaluation - monday - keep NPO on monday night - Dr. Hawk on board. -check the lytes incl mag. ESRD on HD -Dr. Sebastian following. full code
[2020-05-23] MEDS ORDERED: Calcium Gluc 4.6 MEQ/10 ML (100 MG/ML) SLOW IVP ONE (13:32)
[2020-05-23] MEDS ORDERED: Calcium Gluconate 4.6 MEQ in Sodium Chloride 0.9% 100 ML IVPB SCH (14:00)
[2020-05-23] MEDS: HumaLOG 300 UNITS/3 ML VIAL SC PRN (18:02)
[2020-05-24 05:02] LABS: Anion Gap 14 mmol/L (10-20); BUN (Urea Nitrogen) 29 mg/dL (8.4-25.7); Calc. Creatinine Clearance 28 mL/min (70-130); Calcium 8.1 mg/dL (7.8-10.44); Carbon Dioxide 27 mmol/L (23-31); Chloride 101 mmol/L (98-107); Estimated GFR-MDRD 16; Glucose 163 mg/dL (80-115); Magnesium 1.9 mg/dL (1.6-2.6); Potassium 3.5 mmol/L (3.5-5.1); Sodium 138 mmol/L (136-145)
[2020-05-24] MEDS: HumaLOG 300 UNITS/3 ML VIAL SC PRN ×3 (06:10→17:09)
[2020-05-24 06:22] LABS: Band 3 % (5-11); Eosinophils 1 % (0-10); Hemoglobin 8.7 g/dL (14.0-18.0); Lymphocytes 13 % (21-51); MDiff Complete? YES; Mean Corpuscular HGB CONC 31.5 g/dL (32.0-36.0); Mean Corpuscular Hemoglobin 28.9 pg (27.0-31.0); Mean Corpuscular Volume 91.8 fL (78.0-98.0); Mean Platelet Volume 8.6 fL (7.4-10.4); Monocytes 9 % (0-10); Neutrophil 74 % (42-75); Platelet Count 249 thou/uL (130-400); RBC Distribution Width 14.2 % (11.5-14.5); Red Blood Cell (RBC) Count 3.02 mill/uL (4.70-6.10); White Blood Cell (WBC) Count 6.7 thou/uL (4.8-10.8)
[2020-05-24] MEDS: hydrALAZINE 25 MG TAB PO SCH ×3 (08:58→20:04)
--- NOTE | 2020-05-24 11:10 | PRG ---
DATE OF SERVICE: 05/24/2020 SUBJECTIVE: Mr. Knapp is a 64-year-old white male with ESRD and initially admitted for abdominal pain/obstipation. Initial x-ray showed small bowel obstruction. Repeat x-ray of the abdomen showed significant amount of stool in the colon. Lactulose has been given at 30 g p.o. t.i.d. yesterday. Abdominal pain is slightly improved. He has also been evaluated by Cardiology regarding the Mobitz type 1 second-degree AV block. Cardiac echo was done, which showed decreased EF of 40% to 45% and dilated left atrium. No new complaints today. Still with mild abdominal pain. No chest pain or shortness of breath. OBJECTIVE: VITAL SIGNS: Blood pressure is 115/66, heart rate 58, respiratory rate 17, temperature 97.8, O2 saturation 96% on room air. GENERAL: Awake, alert, comfortable. Sitting, not in distress. SKIN: Adequate turgor. HEENT: Slightly pale conjunctivae. Anicteric sclerae. NECK: No neck mass. No carotid bruits. No JVD. CHEST: No deformities. LUNGS: Clear breath sounds. HEART: Normal sinus rhythm. No murmur. No gallops. No rubs. ABDOMEN: Globular, soft, nontender. No masses. EXTREMITIES: No edema. No deformities. MEDICATIONS: Medications of May 24, 2020, reviewed. LABORATORY DATA: Laboratories of May 24, 2020; white count 6.7, hemoglobin 8.7, hematocrit 27.7. Sodium 138, potassium 3.5, chloride 101, carbon dioxide 27, BUN 29, creatinine 3.84, glucose 163, calcium 8.1, magnesium 1.9. ASSESSMENT AND PLAN: 1. End-stage renal disease, stable. We will continue current Monday, Monday, and Monday hemodialysis regimen. Again, fluid removal only as tolerated. 2. Abdominal pain/obstipation, currently on lactulose at 30 g p.o. t.i.d. We will decrease this to a b.i.d. dosing. 3. Anemia, continuing weekly Epogen, p.r.n. blood transfusion. 4. First-degree AV block - Cardiology is following. Cardiac echo showed decreased EF. 5. Recheck CBC and basic metabolic panel in a.m. Job ID: [id number]
--- NOTE | 2020-05-24 12:33 | PDOC.HOSPP ---
- Subjective Encounter Date: 05/24/20 Encounter Time: 09:50 Subjective: pt seen and he is doing well, plan for pacer eval/placement, will keep him nPO tonight. HD, Cr 3.8 - Objective Vital Signs & Weight: Vital Signs (12 hours) Temp Pulse Resp BP BP Pulse Ox 05/24/20 12:04 97.8 F 74 18 160/74 H 97 05/24/20 08:49 97.8 F 58 L 17 115/66 96 05/24/20 03:48 161/75 H 05/24/20 03:34 98.3 F 66 20 182/79 H 97 Weight Weight 234 lb 1.6 oz I&O: 05/23/20 05/24/20 05/25/20 06:59 06:59 06:59 Intake Total 1890 1180 Output Total 0 Balance 1890 1180 Result Diagrams: 05/24/20 04:27 05/24/20 04:27 Additional Labs: Accuchecks 05/24/20 05/24/20 05/23/20 10:54 05:55 20:50 POC Glucose 221 H 177 H 151 H 05/23/20 17:18 POC Glucose 259 H Hospitalist ROS - Medication Medications: Active Medications Generic Name Dose Route Start Last Admin Trade Name Freq PRN Reason Stop Dose Admin Epoetin Jg-epbx 7,500 unit 05/22/20 09:45 05/22/20 11:41 Retacrit SC 7,500 unit Q7D [facility]IXON Administration Hydralazine HCl 10 mg 05/22/20 04:32 05/23/20 12:21 Apresoline SLOW IVP 10 mg Q6H PRN Administration SBP Greater Than 170 Hydralazine HCl 25 mg 05/22/20 15:00 05/24/20 08:58 Apresoline PO Not Given TID NIXON Insulin Human Lispro 0 units 05/21/20 17:06 05/24/20 12:09 Humalog SC 3 unit .MILD SLIDING SCALE PRN Administration Mild Correctional Scale Melatonin 3 mg 05/23/20 01:00 05/23/20 01:09 Melatonin PO 3 mg HS PRN Administration Insomnia - Exam General Appearance: NAD, awake alert Eye: PERRL ENT: normocephalic atraumatic Neck: supple Heart: RRR Respiratory: CTAB, normal chest expansion Gastrointestinal: soft, normal bowel sounds Neurological: no focal deficits Psychiatric: normal behavior Hosp A/P - Plan SBO ruled out xray here, shows lot of stool and small bowel - non-specific gas pattern severe constipation -resolved. -start soft and advance the diet.---tolerating the diet. -off IVF Mobitz type 1 AVB I-CMY with ef of 45% -humza in the past w.. blockers - echo shows EF of 50% -plan for possible pacer evaluation - monday - keep NPO on monday night - Dr. Hawk on board. -check the lytes incl mag. ESRD on HD -Dr. Sebastian following. plan for pacer eval/placement, will keep him nPO tonight. HD, Cr 3.8 full code
[2020-05-24] MEDS: Melatonin 3 MG TAB PO PRN (21:43)
[2020-05-25 05:34] LABS: Anion Gap 13 mmol/L (10-20); BUN (Urea Nitrogen) 34 mg/dL (8.4-25.7); Calc. Creatinine Clearance 25 mL/min (70-130); Calcium 8.2 mg/dL (7.8-10.44); Carbon Dioxide 29 mmol/L (23-31); Chloride 101 mmol/L (98-107); Estimated GFR-MDRD 13; Glucose 120 mg/dL (80-115); Magnesium 2.1 mg/dL (1.6-2.6); Sodium 139 mmol/L (136-145)
[2020-05-25 06:55] LABS: Band 1 % (5-11); Eosinophils 4 % (0-10); Hemoglobin 8.6 g/dL (14.0-18.0); Hypochromia SLIGHT = 6-15 cells (100X) (0-5/hpf); Lymphocytes 25 % (21-51); MDiff Complete? YES; Mean Corpuscular HGB CONC 30.4 g/dL (32.0-36.0); Mean Corpuscular Hemoglobin 27.7 pg (27.0-31.0); Mean Corpuscular Volume 91.1 fL (78.0-98.0); Mean Platelet Volume 8.6 fL (7.4-10.4); Monocytes 6 % (0-10); Neutrophil 64 % (42-75); Platelet Count 250 thou/uL (130-400); Platelet Morphology Comment Appears Adequate; RBC Distribution Width 14.4 % (11.5-14.5); Red Blood Cell (RBC) Count 3.12 mill/uL (4.70-6.10); White Blood Cell (WBC) Count 6.8 thou/uL (4.8-10.8)
[2020-05-25] MEDS: hydrALAZINE 25 MG TAB PO SCH ×3 (07:30→20:35)
--- NOTE | 2020-05-25 08:14 | PRG ---
DATE OF SERVICE: 05/25/2020 SUBJECTIVE: Mr. Knapp is a 64-year-old white male, who was seen by the [facility]al [facility] for management of his ESRD and maintenance hemodialysis. He was noted also to have to bradycardia and AV block. Cardiology has evaluated him and he will be re-evaluated again by Dr. Hawk. In addition, he came in with abdominal pain with obstipation. Lactulose has been given. His abdominal pain is a little better, but however, he tells me he has not had any bowel movement. He does pass some gas. No complaints of chest pain or shortness of breath. OBJECTIVE: VITAL SIGNS: Blood pressure 153/67, heart rate 62, respiratory rate 18, temperature 98.5, and O2 sat 95% on room air. GENERAL: Awake, alert, comfortable, not in distress. SKIN: Adequate turgor. HEENT: He has pinkish, slightly pale conjunctivae. Anicteric sclerae. NECK: No neck mass. No carotid bruits. No JVD. CHEST: No deformities. LUNGS: Clear breath sounds. No wheezing. No crackles. HEART: Normal sinus rhythm. No murmur. No gallops. No rubs. ABDOMEN: Globular, soft, and nontender. No masses. EXTREMITIES: No edema. No deformities. MEDICATIONS: Medications of May 25, 2020, were reviewed. LABORATORY DATA: May 25, 2020; white count 6.8, hemoglobin 8.6, sodium 139, potassium 4, chloride 101, carbon dioxide 29, BUN 34, creatinine 4.44, glucose 120, and calcium 8.2. ASSESSMENT AND PLAN: 1. End-stage renal disease, stable. We will continue current Monday, Monday, and Monday hemodialysis. Fluid removal only as tolerated. 2. Abdominal pain/severe obstipation - abdominal pain is decreased in intensity. He is currently on lactulose. Awaiting for a good bowel movement for this patient. 3. Sinus bradycardia/atrioventricular block - Cardiology is following. 4. Anemia. Continuing weekly Epogen. 5. Recheck base met and CBC in a.m. Job ID: [id number]
--- NOTE | 2020-05-25 11:23 | PDOC.HOSPP ---
- Subjective Encounter Date: 05/25/20 Encounter Time: 07:45 Subjective: Patient seen and examined bedside today, patient does not have any complaint this morning, he is doing much better, he is scheduled for procedure today, _he is n.p.o. - Objective Vital Signs & Weight: Vital Signs (12 hours) Temp Pulse Resp BP BP Pulse Ox 05/25/20 07:24 98.5 F 62 18 153/67 H 95 05/25/20 03:03 97.6 F 61 16 147/72 H 97 Weight Weight 236 lb 6.4 oz I&O: 05/24/20 05/25/20 05/26/20 06:59 06:59 06:59 Intake Total 1180 960 Balance 1180 960 Result Diagrams: 05/25/20 04:05 05/25/20 04:05 Additional Labs: Accuchecks 05/25/20 05/25/20 05/24/20 11:04 05:11 20:11 POC Glucose 176 H 138 H 243 H 05/24/20 05/24/20 16:59 10:54 POC Glucose 220 H 221 H Radiology Reviewed by me: Yes (All radiological investigations reviewed) EKG Reviewed by me: Yes Hospitalist ROS - Review of Systems Constitutional: denies: fever, chills, sweats, weakness, malaise, other ENT: denies: ear pain, ear discharge, nose pain, nose discharge, nose congestion , mouth pain, mouth swelling, throat pain, throat swelling, other Respiratory: denies: cough, dry, shortness of breath, hemoptysis, SOB with excertion, pleuritic pain, sputum, wheezing, other Cardiovascular: denies: chest pain, palpitations, orthopnea, paroxysmal noc. dyspnea, edema, light headedness, other Gastrointestinal: denies: nausea, vomiting, abdominal pain, diarrhea, constipation, melena, hematochezia, other Genitourinary: denies: dysuria, frequency, incontinence, hematuria, retention, other Musculoskeletal: denies: neck pain, shoulder pain, arm pain, back pain, hand pain, leg pain, foot pain, other - Medication Medications: Active Medications Generic Name Dose Route Start Last Admin Trade Name Freq PRN Reason Stop Dose Admin Epoetin Jg-epbx 7,500 unit 05/22/20 09:45 05/22/20 11:41 Retacrit SC 7,500 unit Q7D NIXON Administration Hydralazine HCl 10 mg 05/22/20 04:32 05/23/20 12:21 Apresoline SLOW IVP 10 mg Q6H PRN Administration SBP Greater Than 170 Hydralazine HCl 25 mg 05/22/20 15:00 05/25/20 07:30 Apresoline PO 25 mg TID NIXON Administration Insulin Human Lispro 0 units 05/21/20 17:06 05/24/20 17:09 Humalog SC 3 unit .MILD SLIDING SCALE PRN Administration Mild Correctional Scale Insulin Human Lispro 0 units 05/21/20 17:06 05/24/20 21:44 Humalog SC 2 unit .BEDTIME SLIDING SC PRN Administration Bedtime Correctional Scale Lactulose 30 gm 05/24/20 21:00 05/25/20 07:29 Lactulose PO 30 gm BID NIXON Administration Melatonin 3 mg 05/23/20 01:00 05/24/20 21:43 Melatonin PO 3 mg HS PRN Administration Insomnia - Exam General Appearance: NAD, awake alert Eye: PERRL, anicteric sclera ENT: normocephalic atraumatic, no oropharyngeal lesions Neck: supple, symmetric, no JVD, no thyromegaly Heart: RRR, no gallops, no rubs, murmur present Respiratory: CTAB, no wheezes, no rales, no ronchi Gastrointestinal: soft, non-tender, non-distended, normal bowel sounds Extremities: no cyanosis, no clubbing Skin: normal turgor, no lesions Neurological: no focal deficits Musculoskeletal: normal tone, normal strength Psychiatric: normal affect, normal behavior Hosp A/P - Plan old records reviewed/req Assessment Suspected small bowel obstruction, resolved Severe constipation resolved First-degree AV block Ischemic cardiomyopathy with EF 45 to 50% Moderate mitral regurgitation Coronary artery disease Diabetes type 2 Hypertension Dyslipidemia Secondary hyperparathyroidism of renal origin Gastroesophageal reflux disease Anxiety and depression Benign enlargement of prostate ESRD on hemodialysis Anemia of renal disease Plan Today patient is scheduled for pacemaker procedure Patient is also due for his hemodialysis today I have reviewed medication and continue provide symptomatic and supportive care Expecting his discharge when cardiology clears Nephrology following
[2020-05-25] MEDS ORDERED: PROPOFOL 200 MG/20 ML VIAL ONE (12:28)
[2020-05-25] MEDS ORDERED: Ondansetron PF 4 MG/2 ML Vial ONE ×2 (12:28→18:57)
[2020-05-25] MEDS ORDERED: Iopamidol 370 76% 50 ML VIAL FS ONE (13:23)
[2020-05-25] MEDS ORDERED: Gentamicin 80 MG/2 ML VIAL ONE (17:25)
[2020-05-25] MEDS ORDERED: CEFAZOLIN 1 GM VIAL ONE (17:25)
[2020-05-25] MEDS ORDERED: Propofol 500 MG/50 ML VIAL ONE ×2 (17:29→18:21)
[2020-05-25] MEDS ORDERED: Fentanyl 100 MCG/2 ML VIAL ONE (17:40)
[2020-05-25] MEDS ORDERED: Midazolam HCl 2 mg/2 ml Vial ONE ×2 (17:40→17:46)
--- NOTE | 2020-05-25 18:12 | PDOC.CPN ---
- Subjective Date: 05/25/20 Time: 18:09 Interval history: He is doing well. He had a BM Monday. - Review of Systems General: denies: fever/chills, weight/appetite/sleep changes, night sweats, fatigue Respiratory: denies: cough, congestion, shortness of breath, exercise intolerance Cardiovascular: denies: chest pain, palpitation, edema, paroxysmal nocturnal dyspnea, orthopnea Gastrointestinal: reports: abd pain. denies: nausea, vomiting, diarrhea, constipation, GI bleeding Musculoskeletal: denies: pain, tenderness, stiffness, swelling, arthritis/ arthralgias Neurological: denies: numbness, syncope, seizure, weakness - Objective Allergies/Adverse Reactions: Allergies Allergy/AdvReac Type Severity Reaction Status Date / Time No Known Allergies Allergy Verified 05/21/20 19:58 Visit Medications: Current Medications Acetaminophen (Tylenol) 650 mg PO Q4H PRN PRN Reason: Headache/Fever/Mild Pain (1-3) Bisacodyl (Dulcolax) 10 mg [place] BIDPRN PRN PRN Reason: Constipation Dextrose/Water (Dextrose 50%) 25 gm SLOW IVP PRN PRN PRN Reason: Hypoglycemia Epoetin Jg-epbx (Retacrit) 7,500 unit SC Q7D [facility] Last Admin: 05/22/20 11:41 Dose: 7,500 unit Glucagon (Glucagon) 1 mg IM PRN PRN PRN Reason: Hypoglycemia Hydralazine HCl (Apresoline) 10 mg SLOW IVP Q6H PRN PRN Reason: SBP Greater Than 170 Last Admin: 05/23/20 12:21 Dose: 10 mg Hydralazine HCl (Apresoline) 25 mg PO TID [facility] Last Admin: 05/25/20 14:55 Dose: 25 mg Dextrose/Water (D5w) 1,000 mls @ 0 mls/hr IV .Q0M PRN PRN Reason: Hypoglycemia Insulin Human Lispro (Humalog) 0 units SC .MILD SLIDING SCALE PRN PRN Reason: Mild Correctional Scale Last Admin: 05/24/20 17:09 Dose: 3 unit Insulin Human Lispro (Humalog) 0 units SC .BEDTIME SLIDING SC PRN PRN Reason: Bedtime Correctional Scale Last Admin: 05/24/20 21:44 Dose: 2 unit Lactulose (Lactulose) 30 gm PO BID [facility] Last Admin: 05/25/20 07:29 Dose: 30 gm Melatonin (Melatonin) 3 mg PO HS PRN PRN Reason: Insomnia Last Admin: 05/24/20 21:43 Dose: 3 mg Ondansetron HCl (Zofran Odt) 4 mg PO Q6H PRN PRN Reason: Nausea/Vomiting Vital Signs & Weight: Vital Signs Temp Pulse Resp BP BP Pulse Ox 05/25/20 15:35 98.4 F 86 14 180/80 H 98 05/25/20 11:06 98.5 F 84 16 183/78 H 98 05/25/20 07:24 98.5 F 62 18 153/67 H 95 Weight 236 lb 6.4 oz - Physical Exam General: alert & oriented x3 HEENT: mucus membranes moist Neck: supple neck Cardiac: regular rate and rhythm Lungs: normal breath sounds Neuro: grossly intact Abdomen: active bowel sounds Extremities: no edema Skin: clear - Labs Result Diagrams: 05/25/20 04:05 05/25/20 04:05 - Telemetry Sinus rhythms and dysrhythmias: sinus rhythm - Assessment/Plan Assessment/Plan: 1. Small bowel obstruction. Resolved. 2. ESRD on HD. 3. Ischemic CM last EF at 45-50% 4. 2-1 AV block during sleep, Mobitz 1 during the day. 5. CAD, s/p CABG. 6. SVT PLAN: - He has what seems to be a very diseased conduction system. EP evaluation for possible PPM vs BiV PPM.
[2020-05-25] MEDS ORDERED: Promethazine HCl 25 MG/ML VIAL IM PRN (19:21)
[2020-05-25] MEDS ORDERED: Ondansetron HCl/PF 4 MG/2 ML Vial IVP PRN (19:21)
[2020-05-25] MEDS ORDERED: Promethazine HCl 25 MG/ML VIAL SLOW IVP PRN (19:21)
--- NOTE | 2020-05-25 19:44 | RAD ---
CHEST ONE VIEW PORTABLE: History: Pacemaker insertion. FINDINGS: Right sided pacemaker is placed. Post underlying sternotomy. Bilateral vascular congestion with evide nce for left pleural effusion. IMPRESSION: Bilateral vascular congestion with left pleural effusion. Right sided transvenous pacemaker placed wi thout pneumothorax or pleural effusion. POS: RRE
[2020-05-25] MEDS ORDERED: Acetaminophen/Codeine 30-300mg Tablet PO PRN ×2 (20:45)
[2020-05-26] MEDS: CEFAZOLIN 2 GM in Premix Bag 1 BAG IVPB SCH ×2 (01:20→15:11)
[2020-05-26 04:40] LABS: #Eosinphils 0.2 thou/uL (0.0-0.7); #Lymphocytes 0.9 thou/uL (1.20-3.40); #Monocytes 0.8 thou/uL (0.11-0.59); #Neutrophils 4.1 thou/uL (1.40-6.50); %Basophils 0.4 % (0.0-1.0); %Eosinophils 3.5 % (0.0-10.0); %Lymphocytes 14.7 % (21.0-51.0); %Monocytes 13.5 % (0.0-10.0); Hemoglobin 9.1 g/dL (14.0-18.0); Mean Corpuscular HGB CONC 31.9 g/dL (32.0-36.0); Mean Corpuscular Hemoglobin 29.1 pg (27.0-31.0); Mean Corpuscular Volume 91.1 fL (78.0-98.0); Mean Platelet Volume 8.5 fL (7.4-10.4); Platelet Count 236 thou/uL (130-400); RBC Distribution Width 14.3 % (11.5-14.5); Red Blood Cell (RBC) Count 3.12 mill/uL (4.70-6.10)
[2020-05-26 05:03] LABS: Anion Gap 14 mmol/L (10-20); BUN (Urea Nitrogen) 40 mg/dL (8.4-25.7); Calc. Creatinine Clearance 23 mL/min (70-130); Calcium 8.1 mg/dL (7.8-10.44); Carbon Dioxide 27 mmol/L (23-31); Chloride 99 mmol/L (98-107); Estimated GFR-MDRD 12; Glucose 271 mg/dL (80-115); Magnesium 2.1 mg/dL (1.6-2.6); Potassium 4.1 mmol/L (3.5-5.1); Sodium 136 mmol/L (136-145)
[2020-05-26] MEDS: HumaLOG 300 UNITS/3 ML VIAL SC PRN (06:32)
[2020-05-26] MEDS ORDERED: Ondansetron PF 4 MG/2 ML Vial IVP PRN (07:54)
[2020-05-26] MEDS ORDERED: Senokot S 8.6-50 MG TAB PO PRN ×2 (07:54→11:45)
[2020-05-26] MEDS ORDERED: Sodium Chloride 0.65% Nasal 44 ML BOT EA NARE PRN (07:54)
[2020-05-26] MEDS ORDERED: Cepastat Lozenges 1 LOZ PO PRN (07:54)
[2020-05-26] MEDS ORDERED: Loperamide HCl 2 MG CAP PO PRN (07:54)
[2020-05-26] MEDS ORDERED: HYDROcodone/Acetaminophen 5/325 mg Tablet PO PRN (07:54)
[2020-05-26] MEDS ORDERED: Calcium Carbonate 500 MG ChewTAB PO PRN (07:54)
[2020-05-26] MEDS ORDERED: Diabetic Tussin 200 MG/10 ML UDCUP PO PRN (07:54)
[2020-05-26] MEDS ORDERED: Nitroglycerin 0.4 MG TAB (25 Tab Bottle) SL PRN (07:54)
[2020-05-26] MEDS ORDERED: Loratadine 10 MG TAB PO PRN (07:54)
[2020-05-26 08:11] VITALS: TEMP 98.1
[2020-05-26] MEDS ORDERED: Multivit, Therapeutic 1 TAB PO SCH (09:00)
[2020-05-26] MEDS ORDERED: Aspirin Chewable 81 MG TAB PO SCH (09:00)
[2020-05-26] MEDS ORDERED: Cholecalciferol 1,000 UNITS (25 MCG) TAB PO SCH (09:00)
[2020-05-26] MEDS ORDERED: Finasteride 5 MG TAB PO SCH (09:00)
[2020-05-26] MEDS ORDERED: Tamsulosin HCl 0.4 MG CAP PO SCH (09:00)
--- NOTE | 2020-05-26 09:01 | PRG ---
DATE OF SERVICE: 05/26/2020 SUBJECTIVE: Mr. Knapp is a 64-year-old white male with ESRD, was initially admitted for obstipation. We are following up this patient for management of his ESRD on maintenance hemodialysis. He did miss dialysis yesterday since he had a defibrillator/pacemaker placed. We have scheduled him for dialysis today. He voices no new complaints. He has had a large bowel movement. OBJECTIVE: VITAL SIGNS: Blood pressure is 133/62, heart rate 68, respiratory rate 16, temperature 98.1, and O2 saturation 97%. GENERAL: Awake, alert, and comfortable, not in distress. SKIN: Adequate turgor. HEENT: Slightly pale conjunctivae. Anicteric sclerae. NECK: No neck mass. No carotid bruits. No JVD. CHEST: No deformities. LUNGS: Clear breath sounds. HEART: Normal sinus rhythm. No murmur. No gallops. No rubs. ABDOMEN: Globular, soft, and nontender. No masses. EXTREMITIES: No edema. No deformities. MEDICATIONS: Medications of May 26, 2020, reviewed. LABORATORY DATA: Laboratories on May 26, 2020; white count is 6, hemoglobin 9.1. Sodium 136, potassium 4.1, chloride 99, carbon dioxide 27, BUN 40, creatinine 4.82, glucose 271, calcium 8.1, and magnesium 2.1. ASSESSMENT AND PLAN: 1. End-stage renal disease, stable. We will continue current hemodialysis regimen. He received hemodialysis today since he missed treatment yesterday, then we will resume Monday, Monday, and Monday dialysis. 2. Obstipation, resolved. The patient has had a good bowel movement. 3. Cardiac arrhythmia/bradycardia-status post pacemaker/AICD placement by Dr. Hawk. Overall agree with current management. Recheck CBC and basic met in a.m. Job ID: [id number]
[2020-05-26] MEDS: hydrALAZINE 25 MG TAB PO SCH ×2 (10:10→15:12)
[2020-05-26] MEDS ORDERED: Melatonin 3 MG TAB PO PRN (11:45)
--- NOTE | 2020-05-26 12:10 | PDOC.CPN ---
- Subjective Date: 05/26/20 Time: 12:08 Interval history: He had his procedure yesterday and received a dual chamber pacemaker, right sided placement. - Review of Systems General: denies: fever/chills, weight/appetite/sleep changes, night sweats, fatigue Respiratory: denies: cough, congestion, shortness of breath, exercise intolerance Cardiovascular: denies: chest pain, palpitation, edema, paroxysmal nocturnal dyspnea, orthopnea Gastrointestinal: denies: nausea, vomiting, diarrhea, constipation, abd pain, GI bleeding Musculoskeletal: denies: pain, tenderness, stiffness, swelling, arthritis/ arthralgias Neurological: denies: numbness, syncope, seizure, weakness - Objective Allergies/Adverse Reactions: Allergies Allergy/AdvReac Type Severity Reaction Status Date / Time No Known Allergies Allergy Verified 05/21/20 19:58 Visit Medications: Current Medications Acetaminophen (Tylenol) 650 mg PO Q4H PRN PRN Reason: Headache/Fever/Mild Pain (1-3) Last Admin: 05/25/20 20:35 Dose: 650 mg Acetaminophen/Codeine Phosphate (Tylenol #3) 1 tab PO Q4H PRN PRN Reason: Mild Pain (1-3) Hydrocodone Bitart/Acetaminophen ([place] 5/325) 1 tab PO Q4H PRN PRN Reason: Moderate Pain (4-6) Aspirin (Aspirin Chewable) 81 mg PO DAILY [facility] Last Admin: 05/26/20 10:10 Dose: Not Given Atorvastatin Calcium (Lipitor) 40 mg PO HS [facility] Bisacodyl (Dulcolax) 10 mg [place] BIDPRN PRN PRN Reason: Constipation Calcium Acetate (Phoslo) 667 mg PO QID-[facility] Calcium Carbonate (Tums) 1,000 mg PO Q4H PRN PRN Reason: Heartburn or Indigestion Cephalexin (Keflex) 500 mg PO 0400,1000,1600,2200 [facility] Stop: 06/02/20 10:01 Cholecalciferol (Vitamin D3) 1,000 units PO DAILY [facility] Last Admin: 05/26/20 10:10 Dose: Not Given Dextrose/Water (Dextrose 50%) 25 gm SLOW IVP PRN PRN PRN Reason: Hypoglycemia Docusate Sodium (Colace) 100 mg PO Q2DAYS [facility] Epoetin Jg-epbx (Retacrit) 7,500 unit SC Q7D [facility] Last Admin: 05/22/20 11:41 Dose: 7,500 unit Finasteride (Proscar) 5 mg PO DAILY [facility] Last Admin: 05/26/20 10:10 Dose: Not Given Gabapentin (Neurontin) 300 mg PO [facility] Glucagon (Glucagon) 1 mg IM PRN PRN PRN Reason: Hypoglycemia Guaifenesin (Robitussin Sf) 200 mg PO Q4H PRN PRN Reason: Cough Hydralazine HCl (Apresoline) 10 mg SLOW IVP Q6H PRN PRN Reason: SBP Greater Than 170 Last Admin: 05/23/20 12:21 Dose: 10 mg Hydralazine HCl (Apresoline) 25 mg PO TID [facility] Last Admin: 05/26/20 10:10 Dose: Not Given Dextrose/Water (D5w) 1,000 mls @ 0 mls/hr IV .Q0M PRN PRN Reason: Hypoglycemia Insulin Human Lispro (Humalog) 0 units SC .MILD SLIDING SCALE PRN PRN Reason: Mild Correctional Scale Last Admin: 05/26/20 06:32 Dose: 4 unit Insulin Human Lispro (Humalog) 0 units SC .BEDTIME SLIDING SC PRN PRN Reason: Bedtime Correctional Scale Last Admin: 05/24/20 21:44 Dose: 2 unit Lactulose (Lactulose) 30 gm PO BID [facility] Last Admin: 05/26/20 10:11 Dose: Not Given Loperamide HCl (Imodium) 2 mg PO PRN PRN PRN Reason: Diarrhea/Loose Stools Loratadine (Claritin) 10 mg PO DAILYPRN PRN PRN Reason: Sinus Symptoms Melatonin (Melatonin) 3 mg PO HSPRN PRN PRN Reason: Insomnia Multivitamins (Theragran) 1 tab PO DAILY [facility] Last Admin: 05/26/20 10:11 Dose: Not Given Nitroglycerin (Nitrostat) 0.4 mg SL Q5MIN PRN PRN Reason: Chest Pain Ondansetron HCl (Zofran Odt) 4 mg PO Q6H PRN PRN Reason: Nausea/Vomiting Ondansetron HCl (Zofran) 4 mg IVP Q6H PRN PRN Reason: Nausea/Vomiting Pantoprazole Sodium (Protonix) 40 mg PO DAILY [facility] Last Admin: 05/26/20 10:11 Dose: Not Given Ranolazine (Ranexa) 500 mg PO BID [facility] Last Admin: 05/26/20 10:11 Dose: Not Given Senna/Docusate Sodium (Senokot S) 2 tab PO BIDPRN PRN PRN Reason: Constipation Sertraline HCl (Zoloft) 50 mg PO DAILY [facility] Last Admin: 05/26/20 10:11 Dose: Not Given Sodium Chloride (Flush - Normal Saline) 10 ml IVF PRN PRN PRN Reason: Saline Flush Sodium Chloride ([place] Nasal [place] 0.65%) 0 ml [place] NARE QIDPRN PRN PRN Reason: Nasal Congestion Tamsulosin HCl (Flomax) 0.4 mg PO DAILY [facility] Last Admin: 05/26/20 10:11 Dose: Not Given Throat Lozenges (Cepastat Lozenges) 1 issac PO Q2H PRN PRN Reason: Sore Throat Vital Signs & Weight: Vital Signs Temp Pulse Resp BP BP Pulse Ox 05/26/20 08:11 98.1 F 68 16 133/62 97 05/26/20 04:40 98.8 F 73 12 139/63 96 05/26/20 03:49 72 12 128/60 95 Weight 235 lb 9.6 oz - Physical Exam General: alert & oriented x3 HEENT: mucus membranes moist Neck: supple neck Cardiac: regular rate and rhythm Lungs: clear to auscultation Neuro: grossly intact Abdomen: active bowel sounds Extremities: no edema Skin: clear Musculoskeletal: no pain - Labs Result Diagrams: 05/26/20 04:20 05/26/20 04:20 - Telemetry Sinus rhythms and dysrhythmias: other (AV paced) - Assessment/Plan Assessment/Plan: 1. Small bowel obstruction. Resolved. 2. ESRD on HD. 3. Ischemic CM last EF at 45-50% 4. 2-1 AV block 5. CAD, s/p CABG. 6. SVT 7. S/P PPM. PLAN: - s/p PPM placement. - Doing well. May discharge home any time from cardiac perspective.
[2020-05-26] MEDS: Calcium Acetate 667 MG CAP PO SCH ×2 (15:12)
[2020-05-26 15:14] VITALS: BP 172/79
[2020-05-26] MEDS ORDERED: CEFAZOLIN 2 GM in Premix Bag 1 BAG IVPB SCH (15:15)
--- NOTE | 2020-05-26 15:47 | PDOC.EP ---
- Subjective Date: 05/26/20 Time: 08:00 Interval History: Electrophysiology follow-up note for advanced conduction disease status post biventricular pacemaker implant on 05/25/2020. patient feels well he denies any significant pain at his pacemaker implant site. He is eager to go home but requires dialysis prior to discharge - Review of Systems Constitutional: reports: weakness. denies: chills, fever, malaise, sweats Respiratory: reports: shortness of breath. denies: cough, hemoptysis, pleuritic pain, wheezing Cardiology: denies: chest pain, edema, heart racing, light headedness, palpitations, passing out Gastrointestinal: denies: abdominal pain, constipation, nausea, vomitting - Objective Allergies/Adverse Reactions: Allergies Allergy/AdvReac Type Severity Reaction Status Date / Time No Known Allergies Allergy Verified 05/21/20 19:58 Current Medications Acetaminophen (Tylenol) 650 mg PO Q4H PRN PRN Reason: Headache/Fever/Mild Pain (1-3) Last Admin: 05/25/20 20:35 Dose: 650 mg Acetaminophen/Codeine Phosphate (Tylenol #3) 1 tab PO Q4H PRN PRN Reason: Mild Pain (1-3) Hydrocodone Bitart/Acetaminophen ([place] 5/325) 1 tab PO Q4H PRN PRN Reason: Moderate Pain (4-6) Last Admin: 05/26/20 15:19 Dose: 1 tab Aspirin (Aspirin Chewable) 81 mg PO DAILY [facility] Last Admin: 05/26/20 10:10 Dose: Not Given Atorvastatin Calcium (Lipitor) 40 mg PO HS [facility] Bisacodyl (Dulcolax) 10 mg [place] BIDPRN PRN PRN Reason: Constipation Calcium Acetate (Phoslo) 667 mg PO QID[facility] Last Admin: 05/26/20 15:12 Dose: 667 mg Calcium Carbonate (Tums) 1,000 mg PO Q4H PRN PRN Reason: Heartburn or Indigestion Cephalexin (Keflex) 500 mg PO 0400,1000,1600,2200 [facility] Stop: 06/02/20 10:01 Last Admin: 05/26/20 15:21 Dose: Not Given Cholecalciferol (Vitamin D3) 1,000 units PO DAILY [facility] Last Admin: 05/26/20 10:10 Dose: Not Given Dextrose/Water (Dextrose 50%) 25 gm SLOW IVP PRN PRN PRN Reason: Hypoglycemia Docusate Sodium (Colace) 100 mg PO Q2DAYS [facility] Epoetin Jg-epbx (Retacrit) 7,500 unit SC Q7D [facility] Last Admin: 05/22/20 11:41 Dose: 7,500 unit Finasteride (Proscar) 5 mg PO DAILY [facility] Last Admin: 05/26/20 10:10 Dose: Not Given Gabapentin (Neurontin) 300 mg PO [facility] Glucagon (Glucagon) 1 mg IM PRN PRN PRN Reason: Hypoglycemia Guaifenesin (Robitussin Sf) 200 mg PO Q4H PRN PRN Reason: Cough Hydralazine HCl (Apresoline) 10 mg SLOW IVP Q6H PRN PRN Reason: SBP Greater Than 170 Last Admin: 05/23/20 12:21 Dose: 10 mg Hydralazine HCl (Apresoline) 25 mg PO TID [facility] Last Admin: 05/26/20 15:12 Dose: 25 mg Dextrose/Water (D5w) 1,000 mls @ 0 mls/hr IV .Q0M PRN PRN Reason: Hypoglycemia Cefazolin Sodium/Dextrose 2 gm (/ Device) 50 mls @ 100 mls/hr IVPB NOW [facility] Stop: 05/26/20 17:15 Last Admin: 05/26/20 15:11 Dose: 50 mls Insulin Human Lispro (Humalog) 0 units SC .MILD SLIDING SCALE PRN PRN Reason: Mild Correctional Scale Last Admin: 05/26/20 06:32 Dose: 4 unit Insulin Human Lispro (Humalog) 0 units SC .BEDTIME SLIDING SC PRN PRN Reason: Bedtime Correctional Scale Last Admin: 05/24/20 21:44 Dose: 2 unit Lactulose (Lactulose) 30 gm PO BID [facility] Last Admin: 05/26/20 10:11 Dose: Not Given Loperamide HCl (Imodium) 2 mg PO PRN PRN PRN Reason: Diarrhea/Loose Stools Loratadine (Claritin) 10 mg PO DAILYPRN PRN PRN Reason: Sinus Symptoms Melatonin (Melatonin) 3 mg PO HSPRN PRN PRN Reason: Insomnia Multivitamins (Theragran) 1 tab PO DAILY [facility] Last Admin: 05/26/20 10:11 Dose: Not Given Nitroglycerin (Nitrostat) 0.4 mg SL Q5MIN PRN PRN Reason: Chest Pain Ondansetron HCl (Zofran Odt) 4 mg PO Q6H PRN PRN Reason: Nausea/Vomiting Ondansetron HCl (Zofran) 4 mg IVP Q6H PRN PRN Reason: Nausea/Vomiting Pantoprazole Sodium (Protonix) 40 mg PO DAILY [facility] Last Admin: 05/26/20 10:11 Dose: Not Given Ranolazine (Ranexa) 500 mg PO BID [facility] Last Admin: 05/26/20 10:11 Dose: Not Given Senna/Docusate Sodium (Senokot S) 2 tab PO BIDPRN PRN PRN Reason: Constipation Sertraline HCl (Zoloft) 50 mg PO DAILY [facility] Last Admin: 05/26/20 10:11 Dose: Not Given Sodium Chloride (Flush - Normal Saline) 10 ml IVF PRN PRN PRN Reason: Saline Flush Sodium Chloride ([place] Nasal [place] 0.65%) 0 ml EA NARE QIDPRN PRN PRN Reason: Nasal Congestion Tamsulosin HCl (Flomax) 0.4 mg PO DAILY [facility] Last Admin: 05/26/20 10:11 Dose: Not Given Throat Lozenges (Cepastat Lozenges) 1 issac PO Q2H PRN PRN Reason: Sore Throat Vital Signs & Weight: Vital Signs Temp Pulse Resp BP BP BP Pulse Ox 05/26/20 15:12 80 172/79 H 05/26/20 08:11 98.1 F 68 16 133/62 97 05/26/20 04:40 98.8 F 73 12 139/63 96 05/26/20 03:49 72 12 128/60 95 Weight 235 lb 9.6 oz I/O: I/O 05/25/20 05/26/20 05/27/20 06:59 06:59 06:59 Intake Total 960 120 Balance 960 120 - Physical Exam General: alert & oriented x3, appears well, no apparent distress, speech clear, affect appropriate HEENT: mucus membranes moist, normocephaly Neck: supple neck, midline trachea, no lymphadenopathy Cardiology: regular rate and rhythm, no murmur, PMI nondisplaced Lungs: clear to auscultation, normal breath sounds, no wheeze, rales, rhonchi Neurology: cranial nerve 2-12 intact, grossly intact, no lateralizing findings Abdomen: unremarkable, active bowel sounds, no pulsations/bruits Skin: device site stable w/o swelling, right sided device. negative: bruising, drainage, hematoma - Labs Result Diagrams: 05/26/20 04:20 05/26/20 04:20 - Device Device: biventricular, pacemaker Device Result: [employer] - Assessment/Plan Assessment/Plan: 1. Biventricular pacemaker implant 05/25/2020 - atrial lead parameters stable; RV capture threshold 1.625 volts at 0.4 milliseconds R wave sensing 2.0 mV; LV lead parameters stable - programmed AV delay increased, PAV 320 milliseconds, NASIMA 280 milliseconds 2. extensive first-degree AV block 3. second-degree Mobitz type 1; occasionally 2-1 block 4. chronic systolic heart failure with ischemic cardiomyopathy, LVEF 40-45% 5. end-stage renal disease on dialysis 6. prior MA 7. shortness of breath He did well during his biventricular pacemaker yesterday. His intrinsic QRS is narrow so his pacemaker program is adjusted today to minimize device ventricular pacing. Demand atrial pacing is seen. Ventricular pacing is largely seen during his episodes of Mobitz second-degree block. continue Keflex 250mg BID x7 days post pacemaker implant and wound check in 2 weeks will be arrange at my office. OK for DC by EP
[2020-05-26] MEDS ORDERED: Cephalexin 250 MG CAP PO SCH ×3 (16:00→21:00)
[2020-05-26] MEDS ORDERED: Atorvastatin Calcium 40 MG TAB PO SCH (21:00)
[2020-05-26] MEDS ORDERED: Gabapentin 300 MG CAP PO SCH (21:00)
--- NOTE | 2020-05-27 06:11 | DIS ---
DATE OF ADMISSION: 05/21/2020 DATE OF DISCHARGE: 05/26/2020 PRIMARY CARE PHYSICIAN: [facility] Call Admission. DISCHARGE DISPOSITION: Home. PRIMARY DISCHARGE DIAGNOSES: 1. Severe constipation, resolved. 2. Small bowel obstruction ruled out. 3. Atrioventricular block, status post pacemaker. SECONDARY DISCHARGE DIAGNOSIS: 1. Ischemic cardiomyopathy with ejection fraction 45% to 50%. 2. Moderate mitral regurgitation. 3. Coronary artery disease. 4. Diabetes type 2. 5. Hypertension. 6. Dyslipidemia. 7. End-stage renal disease, on hemodialysis. 8. Anemia of renal disease. 9. Secondary hyperparathyroidism of renal origin. 10. Gastroesophageal reflux disease. 11. Anxiety and depression. 12. Benign enlargement of prostate. PRIMARY PROCEDURE/OPERATION: Pacemaker procedure. RADIOLOGICAL INVESTIGATION: Abdomen x-ray showed constipation, nonspecific bowel gas pattern. Echocardiography showed EF 45% to 50%, moderate mitral regurgitation. Chest x-ray after pacemaker procedure showed no acute process. No complication. SIGNIFICANT LABORATORY DATA: WBC 6.0, hemoglobin 9.1, platelet 236. Sodium 136, potassium 4.1, BUN 40, creatinine 4.82, calcium 8.1, magnesium 2.1. DISCHARGE MEDICATION: 1. Aspirin 81 mg daily. 2. Lipitor 40 mg p.o. at bedtime. 3. PhosLo 667 mg q.i.d. 4. Vitamin D3 1000 units p.o. daily. 5. Colace 100 mg p.o. daily p.r.n. 6. Proscar 5 mg p.o. daily. 7. Gabapentin 300 mg p.o. bedtime. 8. Multivitamin one tablet p.o. daily. 9. Protonix 40 mg p.o. daily. 10. Ranexa 500 mg p.o. b.i.d. 11. Zoloft 50 mg p.o. daily. 12. Flomax 0.4 mg p.o. daily. 13. Cephalexin 250 mg q.6 hourly for 7 days. 14. Coreg 3.125 mg p.o. b.i.d. CONTRAINDICATION: The patient is not on ANGELA inhibitor because of ESRD. CODE STATUS: Full code. INPATIENT CONSULTANTS: 1. Dr. Roland, was following while in the hospital. 2. Dr. Lorenzo Hawk, was consulted while in the hospital. 3. Dr. Sebastian, was following for dialysis. TEST RESULT PENDING ON DISCHARGE: None. ALLERGIES: NO KNOWN DRUG ALLERGIES. DISCHARGE PLAN: Post hospital, the patient will follow up with Dr. Lorenzo Hawk in 2 weeks. The patient will follow up with Cardiology. The patient will resume his maintenance hemodialysis. HOSPITAL COURSE: A 64-year-old male, who was admitted by nurse practitioner, Alexandra. Please see her H and P for further details. The patient was having severe constipation and there was suspicious small bowel obstruction. The patient had x-ray abdomen, which showed constipation and without any small-bowel obstruction. During this admission, small-bowel obstruction was completely ruled out. The patient was having bradyarrhythmia and that is why the patient was kept on hold for beta-ирина therapy. He has underlying cardiomyopathy. Cardiology was following during this admission and Nephrology was also consulted for maintenance hemodialysis. Cardiology recommended to consult clinical support tech. The patient underwent pacemaker procedure. After pacemaker procedure, we started Coreg 3.125 mg p.o. twice daily. Antibiotic is also prescribed for 7 days. The patient will continue all his previous medication. New medication prescription sent to his pharmacy. The patient will resume his regular dialysis and he will follow up with Cardiology and Electrophysiology as instructed. I have seen and examined the patient at bedside today. PHYSICAL EXAMINATION: VITAL SIGNS: Currently, temperature 98.1, pulse 68, respiratory rate 16, saturation 97% on room air. Blood pressure 133/62. Weight of 235 pounds. GENERAL: The patient is currently alert, awake, in no acute distress. HEENT: Head, normocephalic and atraumatic. NECK: Supple. No JVD. No meningeal signs of irritation. LUNGS: Clear to auscultation without any rhonchi or rales. CARDIAC: S1 and S2 appears regular. No murmur. No gallop. No rub. ABDOMEN: Soft, bowel sounds present, nontender, nondistended. No organomegaly. No mass. EXTREMITIES: No edema. Good distal pulsation. SKIN: No skin rash. HEMATOLOGICAL SYSTEM: No lymphadenopathy. NEUROLOGIC: Nonfocal examination. All new medication prescription sent to his pharmacy. Job ID: [id number]
[2020-05-27] MEDS ORDERED: Docusate 100 MG CAP PO SCH (09:00)
== END 2020-05-26 17:25 | disposition home or self-care (01) | DRG 242 ==
LOC: ERS 12:23 → SURG B 13:47 → 2NO 05-22 15:56
PROVIDERS: ADMIT Internal Medicine; ATTEND Internal Medicine
PROC: 5A1D70Z Performance of Urinary Filtration, Intermittent, Less than 6 Hours Per Day (ICD-10-PCS; principal; 2020-05-22)
PROC: 0JH607Z Insertion of Cardiac Resynchronization Pacemaker Pulse Generator into Chest Subcutaneous Tissue and Fascia, Open Approach (ICD-10-PCS; 2020-05-25)
PROC: 02HK3JZ Insertion of Pacemaker Lead into Right Ventricle, Percutaneous Approach (ICD-10-PCS; 2020-05-25)
PROC: 02HL3JZ Insertion of Pacemaker Lead into Left Ventricle, Percutaneous Approach (ICD-10-PCS; 2020-05-25)
PROC: 02H63JZ Insertion of Pacemaker Lead into Right Atrium, Percutaneous Approach (ICD-10-PCS; 2020-05-25)
DX: I44.1 Atrioventricular block, second degree (principal); N18.6 End stage renal disease; I50.22 Chronic systolic (congestive) heart failure; I13.2 Hypertensive heart and chronic kidney disease with heart failure and with stage 5 chronic kidney disease, or end stage renal disease; N25.81 Secondary hyperparathyroidism of renal origin; I47.1 Supraventricular tachycardia; K59.00 Constipation, unspecified; I25.5 Ischemic cardiomyopathy; E11.22 Type 2 diabetes mellitus with diabetic chronic kidney disease; E78.5 Hyperlipidemia, unspecified; K21.9 Gastro-esophageal reflux disease without esophagitis; D63.1 Anemia in chronic kidney disease; I25.10 Atherosclerotic heart disease of native coronary artery without angina pectoris; I34.0 Nonrheumatic mitral (valve) insufficiency; N40.0 Benign prostatic hyperplasia without lower urinary tract symptoms; F41.9 Anxiety disorder, unspecified; F32.9 Major depressive disorder, single episode, unspecified; Z99.2 Dependence on renal dialysis; I25.2 Old myocardial infarction; Z95.1 Presence of aortocoronary bypass graft; Z89.431 Acquired absence of right foot; Z79.82 Long term (current) use of aspirin; Z79.899 Other long term (current) drug therapy; Z98.1 Arthrodesis status
CPT/HCPCS: 33208; 33225; 36005; 36415; 36416; 71045; 74018; 75820; 76942; 80048; 80053; 83605; 83690; 83735; 85025; 90935; 93005; 93010; 93306; 96374; C1882; C1898; C1900; G0257; J0360; J0690; J1580; J2060; J2250; J2270; J2405; J2704; J3010; J3490; Q5105; Q9967

== ENCOUNTER 2021-08-03 05:53 | Day surgery (SDC) | payer MEDICARE ==
[2021-08-02 10:09] VITALS: BMI 30.9
[2021-08-03 07:08] LABS: #Eosinphils 0.2 thou/uL (0.0-0.7); #Lymphocytes 1.5 thou/uL (1.20-3.40); #Monocytes 1.1 thou/uL (0.11-0.59); %Basophils 0.3 % (0.0-1.0); %Eosinophils 2.5 % (0.0-10.0); %Lymphocytes 16.5 % (21.0-51.0); %Monocytes 12.4 % (0.0-10.0); %Neutrophils 68.3 % (42.0-75.0); Mean Corpuscular HGB CONC 31.5 g/dL (32.0-36.0); Mean Corpuscular Volume 98.4 fL (78.0-98.0); Mean Platelet Volume 8.9 fL (7.4-10.4); Platelet Count 156 thou/uL (130-400); RBC Distribution Width 12.9 % (11.5-14.5); Red Blood Cell (RBC) Count 3.86 mill/uL (4.70-6.10); White Blood Cell (WBC) Count 8.8 thou/uL (4.8-10.8)
[2021-08-03 07:49] LABS: ALT (SGPT) 10 U/L (8-55); AST (SGOT) 14 U/L (5-34); Albumin 3.7 g/dL (3.4-4.8); Alkaline Phosphatase 93 U/L (40-110); Anion Gap 17 mmol/L (10-20); BUN (Urea Nitrogen) 45 mg/dL (8.4-25.7); Bilirubin, Total 0.3 mg/dL (0.2-1.2); Calc. Creatinine Clearance 18 mL/min (70-130); Calcium 8.9 mg/dL (7.8-10.44); Carbon Dioxide 31 mmol/L (23-31); Chloride 93 mmol/L (98-107); Globulin 3.2 g/dL (2.4-3.5); Glucose 134 mg/dL (80-115); Protein, Total 6.9 g/dL (5.8-8.1); Sodium 136 mmol/L (136-145)
[2021-08-03] MEDS ORDERED: Lidocaine 1% (PF) 30 ML VIAL ONE (08:04)
[2021-08-03] MEDS ORDERED: Fentanyl 100 MCG/2 ML VIAL ONE (08:11)
[2021-08-03] MEDS ORDERED: Midazolam HCl 2 mg/2 ml Vial ONE (08:11)
[2021-08-03] MEDS ORDERED: Iopamidol 370 76% 100 ML VIAL ONE (14:53)
== END 2021-08-03 12:00 | disposition home or self-care (01) ==
LOC: CCL 05:53
PROVIDERS: ATTEND Internal Medicine Cardiovascular Disease
PROC: 4A023N7 Measurement of Cardiac Sampling and Pressure, Left Heart, Percutaneous Approach (ICD-10-PCS; principal; 2021-08-03)
PROC: B2111ZZ Fluoroscopy of Multiple Coronary Arteries using Low Osmolar Contrast (ICD-10-PCS; 2021-08-03)
PROC: B2181ZZ Fluoroscopy of Left Internal Mammary Bypass Graft using Low Osmolar Contrast (ICD-10-PCS; 2021-08-03)
PROC: B2131ZZ Fluoroscopy of Multiple Coronary Artery Bypass Grafts using Low Osmolar Contrast (ICD-10-PCS; 2021-08-03)
DX: I25.119 Atherosclerotic heart disease of native coronary artery with unspecified angina pectoris (principal); I25.82 Chronic total occlusion of coronary artery; I48.0 Paroxysmal atrial fibrillation; I35.1 Nonrheumatic aortic (valve) insufficiency; I25.5 Ischemic cardiomyopathy; I13.2 Hypertensive heart and chronic kidney disease with heart failure and with stage 5 chronic kidney disease, or end stage renal disease; E11.22 Type 2 diabetes mellitus with diabetic chronic kidney disease; N18.6 End stage renal disease; I50.9 Heart failure, unspecified; I44.1 Atrioventricular block, second degree; I65.23 Occlusion and stenosis of bilateral carotid arteries; K21.9 Gastro-esophageal reflux disease without esophagitis; E78.5 Hyperlipidemia, unspecified; I25.2 Old myocardial infarction; G47.30 Sleep apnea, unspecified; Z86.16 Personal history of COVID-19; Z79.01 Long term (current) use of anticoagulants; Z79.4 Long term (current) use of insulin; Z79.899 Other long term (current) drug therapy; Z95.0 Presence of cardiac pacemaker; Z95.1 Presence of aortocoronary bypass graft
CPT/HCPCS: 36415; 75736; 76942; 80053; 85025; 93455; 99152; 99153; J2001; J2250; J3010; Q9967

== ENCOUNTER 2022-07-18 17:49 | Emergency (ER) | payer MEDICARE ==
[2022-07-18 18:34] LABS: #Eosinphils 0.4 thou/uL (0.0-0.7); #Lymphocytes 1.3 thou/uL (1.20-3.40); #Monocytes 1.2 thou/uL (0.11-0.59); #Neutrophils 6.3 thou/uL (1.40-6.50); %Basophils 0.3 % (0.0-1.0); %Eosinophils 4.9 % (0.0-10.0); %Lymphocytes 14.2 % (21.0-51.0); %Monocytes 12.7 % (0.0-10.0); %Neutrophils 68.1 % (42.0-75.0); Hemoglobin 12.5 g/dL (14.0-18.0); Mean Corpuscular HGB CONC 32.8 g/dL (32.0-36.0); Mean Corpuscular Hemoglobin 34.4 pg (27.0-31.0); Mean Platelet Volume 9.3 fL (7.4-10.4); Platelet Count 179 thou/uL (130-400); RBC Distribution Width 13.8 % (11.5-14.5); Red Blood Cell (RBC) Count 3.63 mill/uL (4.70-6.10); White Blood Cell (WBC) Count 9.2 thou/uL (4.8-10.8)
[2022-07-18 19:01] LABS: ALT (SGPT) 12 U/L (8-55); AST (SGOT) 13 U/L (5-34); Albumin 3.9 g/dL (3.4-4.8); Alkaline Phosphatase 85 U/L (40-110); Anion Gap 17 mmol/L (10-20); BUN (Urea Nitrogen) 41 mg/dL (8.4-25.7); Bilirubin, Total 0.5 mg/dL (0.2-1.2); Calc. Creatinine Clearance 0 mL/min (70-130); Calcium 9.1 mg/dL (7.8-10.44); Carbon Dioxide 31 mmol/L (23-31); Chloride 93 mmol/L (98-107); Estimated GFR 10; Globulin 3.8 g/dL (2.4-3.5); Glucose 113 mg/dL (80-115); Potassium 4.7 mmol/L (3.5-5.1); Protein, Total 7.7 g/dL (5.8-8.1); Sodium 136 mmol/L (136-145)
[2022-07-18 19:19] LABS: CKMB 4.6 ng/mL (0-6.6)
== END 2022-07-18 23:05 | disposition home or self-care (01) ==
LOC: ERS 17:49
DX: S09.90XA Unspecified injury of head, initial encounter (principal); R53.1 Weakness; R25.1 Tremor, unspecified; E11.22 Type 2 diabetes mellitus with diabetic chronic kidney disease; I13.2 Hypertensive heart and chronic kidney disease with heart failure and with stage 5 chronic kidney disease, or end stage renal disease; I50.9 Heart failure, unspecified; N18.6 End stage renal disease; I25.2 Old myocardial infarction; Z99.2 Dependence on renal dialysis; Z79.01 Long term (current) use of anticoagulants; Z79.4 Long term (current) use of insulin; Z79.899 Other long term (current) drug therapy; W18.39XA Other fall on same level, initial encounter
CPT/HCPCS: 36415; 71045; 80053; 82553; 84484; 85025; 93005

== ENCOUNTER 2022-11-18 00:31 | Inpatient (IN) | payer MEDICARE ==
[2022-11-18 01:06] LABS: #Lymphocytes 0.5 thou/uL (1.20-3.40); #Monocytes 0.8 thou/uL (0.11-0.59); #Neutrophils 11.1 thou/uL (1.40-6.50); %Basophils 0.1 % (0.0-1.0); %Eosinophils 0.2 % (0.0-10.0); %Lymphocytes 4.2 % (21.0-51.0); %Monocytes 6.4 % (0.0-10.0); %Neutrophils 89.1 % (42.0-75.0); Mean Corpuscular HGB CONC 33.1 g/dL (32.0-36.0); Mean Corpuscular Hemoglobin 34.1 pg (27.0-31.0); Mean Platelet Volume 10.6 fL (7.4-10.4); Platelet Count 120 10x3/uL (130-400); RBC Distribution Width 13.3 % (11.5-14.5); Red Blood Cell (RBC) Count 3.22 mill/uL (4.70-6.10); White Blood Cell (WBC) Count 12.4 10x3/uL (4.8-10.8)
[2022-11-18 01:27] LABS: ALT (SGPT) 30 U/L (8-55); AST (SGOT) 39 U/L (5-34); Albumin 3.8 g/dL (3.4-4.8); Alkaline Phosphatase 75 U/L (40-110); Anion Gap 25 mmol/L (10-20); BUN (Urea Nitrogen) 109 mg/dL (8.4-25.7); Bilirubin, Total 0.5 mg/dL (0.2-1.2); Calc. Creatinine Clearance 0 mL/min (70-130); Calcium 8.8 mg/dL (7.8-10.44); Carbon Dioxide 20 mmol/L (23-31); Chloride 96 mmol/L (98-107); Estimated GFR 4; Globulin 3.6 g/dL (2.4-3.5); Glucose 342 mg/dL (80-115); Protein, Total 7.4 g/dL (5.8-8.1); Sodium 134 mmol/L (136-145)
[2022-11-18 01:31] LABS: Potassium 6.8 mmol/L (3.5-5.1)
[2022-11-18 01:51] LABS: CKMB 5.9 ng/mL (0-6.6)
[2022-11-18] MEDS ORDERED: Acetaminophen 325 MG TAB PO PRN (02:05)
[2022-11-18] MEDS ORDERED: Ondansetron PF 4 MG/2 ML Vial IVP PRN (02:05)
[2022-11-18 02:15] LABS: SARS-CoV-2 NAA Rapid Test Not Detected (NotDetected)
[2022-11-18] MEDS ORDERED: Dextrose 5% in Water 1,000 ML IV PRN (02:25)
[2022-11-18] MEDS ORDERED: HumaLOG 300 UNITS/3 ML VIAL SC PRN (02:25)
[2022-11-18] MEDS ORDERED: Dextrose 50% Abboject 50 ML SYRINGE SLOW IVP PRN (02:25)
[2022-11-18 03:18] LABS: HBSAg Index 0.25 S/CO (0-0.99); Hep B Core Total Ab Non-Reactive (NonReactive); Hep B Core Total Index 0.09 S/CO (0-0.79); Hep B Surf Ag Non-Reactive S/CO (NonReactive); Hep C IgG Ab Non-Reactive (NonReactive); Hep C Index 0.11 S/CO (0-0.79)
[2022-11-18 03:32] LABS: HBSAB Concentration 88.15 mIU/mL; Hep B Surf AB Reactive (NonReactive)
[2022-11-18 04:18] LABS: Lactic Acid 0.5 mmol/L (0.5-2.2)
[2022-11-18 04:55] LABS: Troponin I 1.816 ng/mL (< 0.028)
[2022-11-18 05:28] VITALS: BMI 34.4
[2022-11-18 07:25] LABS: Troponin I 2.573 ng/mL (< 0.028)
[2022-11-18 08:19] LABS: #Eosinphils 0.1 thou/uL (0.0-0.7); #Lymphocytes 1.2 thou/uL (1.20-3.40); #Neutrophils 8.6 thou/uL (1.40-6.50); %Basophils 0.3 % (0.0-1.0); %Eosinophils 0.5 % (0.0-10.0); %Monocytes 9.1 % (0.0-10.0); %Neutrophils 79.1 % (42.0-75.0); Hemoglobin 10.9 g/dL (14.0-18.0); Mean Corpuscular HGB CONC 33.6 g/dL (32.0-36.0); Mean Corpuscular Hemoglobin 34.3 pg (27.0-31.0); Mean Platelet Volume 10.5 fL (7.4-10.4); Platelet Count 115 10x3/uL (130-400); Red Blood Cell (RBC) Count 3.17 mill/uL (4.70-6.10); White Blood Cell (WBC) Count 10.9 10x3/uL (4.8-10.8)
[2022-11-18 08:27] LABS: Anion Gap 20 mmol/L (10-20); BUN (Urea Nitrogen) 82 mg/dL (8.4-25.7); Calc. Creatinine Clearance 12 mL/min (70-130); Calcium 8.8 mg/dL (7.8-10.44); Carbon Dioxide 22 mmol/L (23-31); Chloride 98 mmol/L (98-107); Estimated GFR 6; Glucose 172 mg/dL (80-115); Potassium 5.3 mmol/L (3.5-5.1); Sodium 135 mmol/L (136-145)
[2022-11-18] MEDS ORDERED: Azithromycin 500 MG VIAL ONE (09:19)
[2022-11-18] MEDS ORDERED: cefTRIAXone\\ROCEPHIN 1 GM VIAL ONE (09:20)
[2022-11-18] MEDS: cefTRIAXone\\ROCEPHIN 1 GM in Sodium Chloride 0.9% 100 ML IVPB SCH (09:25)
[2022-11-18] MEDS ORDERED: Aspirin 81 mg Enteric Coated Tablet ONE (09:35)
[2022-11-18] MEDS ORDERED: Aspirin Chewable 81 MG TAB ONE (09:35)
[2022-11-18] MEDS ORDERED: Acetaminophen 325 MG TAB ONE (09:35)
[2022-11-18 09:52] LABS: CKMB 7.4 ng/mL (0-6.6)
[2022-11-18] MEDS: Azithromycin 500 MG in Sodium Chloride 0.9% 250 ML 250 ML IVPB SCH (09:55)
[2022-11-18 12:36] LABS: Hemoglobin 10.7 g/dL (14.0-18.0); Platelet Count 115 10x3/uL (130-400)
[2022-11-18] MEDS ORDERED: Heparin 10,000 UNITS/ 10 ML VIAL ONE (13:53)
[2022-11-18] MEDS: Heparin 25,000 units/D5W 500 ML IVPB SCH (13:54)
[2022-11-18] MEDS: Heparin 10,000 UNITS/ 10 ML VIAL SLOW IVP SCH (13:54)
[2022-11-18] MEDS: EPOETIN ALFA-EPBX (ESRD) 10,000 UNIT/ML VIAL SC SCH (18:50)
[2022-11-19] MEDS: Heparin 10,000 UNITS/ 10 ML VIAL SLOW IVP SCH (02:27)
[2022-11-19 05:12] LABS: #Eosinphils 0.3 thou/uL (0.0-0.7); #Monocytes 1.1 thou/uL (0.11-0.59); #Neutrophils 7.2 thou/uL (1.40-6.50); %Basophils 0.3 % (0.0-1.0); %Eosinophils 2.7 % (0.0-10.0); %Lymphocytes 10.8 % (21.0-51.0); %Monocytes 11.2 % (0.0-10.0); %Neutrophils 75.1 % (42.0-75.0); Hemoglobin 10.9 g/dL (14.0-18.0); Mean Corpuscular HGB CONC 33.1 g/dL (32.0-36.0); Mean Platelet Volume 10.6 fL (7.4-10.4); Platelet Count 115 10x3/uL (130-400); RBC Distribution Width 13.3 % (11.5-14.5); Red Blood Cell (RBC) Count 3.19 mill/uL (4.70-6.10); White Blood Cell (WBC) Count 9.6 10x3/uL (4.8-10.8)
[2022-11-19 05:25] LABS: Anion Gap 23 mmol/L (10-20); BUN (Urea Nitrogen) 97 mg/dL (8.4-25.7); Calc. Creatinine Clearance 11 mL/min (70-130); Calcium 8.5 mg/dL (7.8-10.44); Carbon Dioxide 20 mmol/L (23-31); Chloride 96 mmol/L (98-107); Estimated GFR 5; Glucose 299 mg/dL (80-115); Potassium 5.7 mmol/L (3.5-5.1); Sodium 133 mmol/L (136-145)
[2022-11-19] MEDS: cefTRIAXone\\ROCEPHIN 1 GM in Sodium Chloride 0.9% 100 ML IVPB SCH (06:27)
[2022-11-19] MEDS: Heparin 25,000 units/D5W 500 ML IVPB SCH (13:03)
[2022-11-19] MEDS: Azithromycin 500 MG in Sodium Chloride 0.9% 250 ML 250 ML IVPB SCH (15:06)
[2022-11-19] MEDS: Tamsulosin HCl 0.4 MG CAP PO SCH (21:30)
[2022-11-19] MEDS: Gabapentin 300 MG CAP PO SCH (21:30)
[2022-11-19] MEDS: Atorvastatin Calcium 40 MG TAB PO SCH (21:31)
[2022-11-19] MEDS: Finasteride 5 MG TAB PO SCH (21:31)
[2022-11-19] MEDS: HumuLIN 70/30 (300 UNITS/3 ML VIAL) SC SCH (21:32)
[2022-11-20] MEDS: Heparin 10,000 UNITS/ 10 ML VIAL SLOW IVP SCH (00:10)
[2022-11-20 05:39] LABS: Anion Gap 23 mmol/L (10-20); BUN (Urea Nitrogen) 83 mg/dL (8.4-25.7); Calc. Creatinine Clearance 13 mL/min (70-130); Calcium 8.5 mg/dL (7.8-10.44); Carbon Dioxide 20 mmol/L (23-31); Chloride 98 mmol/L (98-107); Estimated GFR 6; Glucose 120 mg/dL (80-115); Potassium 4.9 mmol/L (3.5-5.1); Sodium 136 mmol/L (136-145)
[2022-11-20] MEDS: cefTRIAXone\\ROCEPHIN 1 GM in Sodium Chloride 0.9% 100 ML IVPB SCH (06:16)
[2022-11-20 06:23] LABS: #Eosinphils 0.3 thou/uL (0.0-0.7); #Lymphocytes 1.2 thou/uL (1.20-3.40); #Monocytes 1.2 thou/uL (0.11-0.59); #Neutrophils 6.1 thou/uL (1.40-6.50); %Basophils 0.1 % (0.0-1.0); %Eosinophils 2.9 % (0.0-10.0); %Lymphocytes 13.9 % (21.0-51.0); %Monocytes 13.6 % (0.0-10.0); %Neutrophils 69.6 % (42.0-75.0); Hemoglobin 10.2 g/dL (14.0-18.0); Mean Corpuscular HGB CONC 32.6 g/dL (32.0-36.0); Mean Corpuscular Hemoglobin 33.6 pg (27.0-31.0); Mean Platelet Volume 10.4 fL (7.4-10.4); Platelet Count 118 10x3/uL (130-400); RBC Distribution Width 13.4 % (11.5-14.5); Red Blood Cell (RBC) Count 3.05 mill/uL (4.70-6.10); White Blood Cell (WBC) Count 8.8 10x3/uL (4.8-10.8)
[2022-11-20] MEDS: Heparin 25,000 units/D5W 500 ML IVPB SCH (07:44)
[2022-11-20] MEDS: Azithromycin 500 MG in Sodium Chloride 0.9% 250 ML 250 ML IVPB SCH (07:45)
[2022-11-20] MEDS: Fluticasone Propionate Nasal Spray 16 gm Bottle NASAL SCH (07:45)
[2022-11-20] MEDS: Sertraline 100 MG TAB PO SCH (07:46)
[2022-11-20] MEDS ORDERED: NIFEdipine XL 30 MG TAB PO SCH (09:00)
[2022-11-20] MEDS: HumuLIN 70/30 (300 UNITS/3 ML VIAL) SC SCH ×2 (11:51→22:07)
[2022-11-20 12:53] LABS: Hemoglobin 10.6 g/dL (14.0-18.0); Platelet Count 127 10x3/uL (130-400)
[2022-11-20] MEDS ORDERED: HumuLIN 70/30 (300 UNITS/3 ML VIAL) SC SCH (18:30)
[2022-11-20] MEDS: Gabapentin 300 MG CAP PO SCH (20:44)
[2022-11-20] MEDS: Atorvastatin Calcium 40 MG TAB PO SCH (20:45)
[2022-11-20] MEDS: Tamsulosin HCl 0.4 MG CAP PO SCH (20:45)
[2022-11-20] MEDS: Finasteride 5 MG TAB PO SCH (20:45)
[2022-11-21] MEDS: Heparin 25,000 units/D5W 500 ML IVPB SCH (00:41)
[2022-11-21 04:56] LABS: #Eosinphils 0.3 thou/uL (0.0-0.7); #Lymphocytes 1.7 thou/uL (1.20-3.40); #Monocytes 0.9 thou/uL (0.11-0.59); #Neutrophils 5.8 thou/uL (1.40-6.50); %Basophils 0.3 % (0.0-1.0); %Eosinophils 3.6 % (0.0-10.0); %Lymphocytes 19.4 % (21.0-51.0); %Monocytes 10.8 % (0.0-10.0); Hemoglobin 10.1 g/dL (14.0-18.0); Mean Corpuscular Hemoglobin 34.2 pg (27.0-31.0); Mean Platelet Volume 10.5 fL (7.4-10.4); Platelet Count 121 10x3/uL (130-400); RBC Distribution Width 13.3 % (11.5-14.5); Red Blood Cell (RBC) Count 2.95 mill/uL (4.70-6.10); White Blood Cell (WBC) Count 8.7 10x3/uL (4.8-10.8)
[2022-11-21 05:16] LABS: Anion Gap 21 mmol/L (10-20); BUN (Urea Nitrogen) 91 mg/dL (8.4-25.7); Calc. Creatinine Clearance 11 mL/min (70-130); Carbon Dioxide 22 mmol/L (23-31); Chloride 94 mmol/L (98-107); Estimated GFR 5; Glucose 328 mg/dL (80-115); Sodium 131 mmol/L (136-145)
[2022-11-21] MEDS: cefTRIAXone\\ROCEPHIN 1 GM in Sodium Chloride 0.9% 100 ML IVPB SCH (05:58)
[2022-11-21] MEDS: HumaLOG 300 UNITS/3 ML VIAL SC PRN (06:24)
[2022-11-21] MEDS: Fluticasone Propionate Nasal Spray 16 gm Bottle NASAL SCH (09:00)
[2022-11-21] MEDS ORDERED: Iopamidol 300 61% 50 ML VIAL FS ONE (09:44)
[2022-11-21] MEDS ORDERED: Activase 2 MG VIAL CATH SCH (12:00)
[2022-11-21] MEDS: Azithromycin 250 MG TAB PO SCH (13:58)
[2022-11-21] MEDS: Sertraline 100 MG TAB PO SCH (13:59)
[2022-11-21] MEDS: HumuLIN 70/30 (300 UNITS/3 ML VIAL) SC SCH ×2 (17:56→22:31)
[2022-11-21] MEDS: Atorvastatin Calcium 40 MG TAB PO SCH (22:29)
[2022-11-21] MEDS: Tamsulosin HCl 0.4 MG CAP PO SCH (22:29)
[2022-11-21] MEDS: Finasteride 5 MG TAB PO SCH (22:29)
[2022-11-21] MEDS: Gabapentin 300 MG CAP PO SCH (22:30)
[2022-11-21 22:31] LABS: PTT 155.9 sec (22.9-36.1)
[2022-11-21 23:58] LABS: PTT Greater than 250.0 sec (22.9-36.1)
[2022-11-22] MEDS: cefTRIAXone\\ROCEPHIN 1 GM in Sodium Chloride 0.9% 100 ML IVPB SCH (05:44)
[2022-11-22] MEDS: HumaLOG 300 UNITS/3 ML VIAL SC PRN ×2 (05:47→10:26)
[2022-11-22] MEDS: Azithromycin 250 MG TAB PO SCH (07:58)
[2022-11-22] MEDS: Sertraline 100 MG TAB PO SCH (08:00)
[2022-11-22] MEDS: HumuLIN 70/30 (300 UNITS/3 ML VIAL) SC SCH ×2 (08:02→22:00)
[2022-11-22] MEDS: Heparin 25,000 units/D5W 500 ML IVPB SCH (08:04)
[2022-11-22] MEDS: Fluticasone Propionate Nasal Spray 16 gm Bottle NASAL SCH (08:14)
[2022-11-22] MEDS: Non-Formulary Item 1 EACH (B,C/Folic/Zinc/Selenometh/D3/E [Renaplex-D Tablet] 1 EACH Tabl PO SCH (08:15)
[2022-11-22 09:41] LABS: Anion Gap 24 mmol/L (10-20); BUN (Urea Nitrogen) 104 mg/dL (8.4-25.7); Calc. Creatinine Clearance 10 mL/min (70-130); Carbon Dioxide 17 mmol/L (23-31); Chloride 95 mmol/L (98-107); Estimated GFR 5; Glucose 222 mg/dL (80-115); Sodium 130 mmol/L (136-145)
[2022-11-22] MEDS ORDERED: Activase 2 MG VIAL CATH SCH (12:45)
[2022-11-22] MEDS ORDERED: CEFAZOLIN 2 GM in Sodium Chloride 0.9% 100 ML IVPB SCH (13:15)
[2022-11-22 13:39] LABS: Hemoglobin 9.7 g/dL (14.0-18.0); Platelet Count 112 10x3/uL (130-400)
[2022-11-22] MEDS: Tamsulosin HCl 0.4 MG CAP PO SCH (21:56)
[2022-11-22] MEDS: Atorvastatin Calcium 40 MG TAB PO SCH (21:56)
[2022-11-22] MEDS: Gabapentin 300 MG CAP PO SCH (21:56)
[2022-11-22] MEDS: Finasteride 5 MG TAB PO SCH (21:56)
[2022-11-23 05:47] LABS: #Basophils 0.1 thou/uL (0.0-0.2); #Eosinphils 0.4 thou/uL (0.0-0.7); #Lymphocytes 1.8 thou/uL (1.20-3.40); #Monocytes 1.2 thou/uL (0.11-0.59); #Neutrophils 6.9 thou/uL (1.40-6.50); %Basophils 0.6 % (0.0-1.0); %Eosinophils 3.8 % (0.0-10.0); %Lymphocytes 17.1 % (21.0-51.0); %Monocytes 11.3 % (0.0-10.0); %Neutrophils 67.1 % (42.0-75.0); Hemoglobin 8.9 g/dL (14.0-18.0); Mean Corpuscular HGB CONC 34.1 g/dL (32.0-36.0); Mean Corpuscular Hemoglobin 34.9 pg (27.0-31.0); Mean Platelet Volume 10.3 fL (7.4-10.4); Platelet Count 112 10x3/uL (130-400); RBC Distribution Width 13.5 % (11.5-14.5); Red Blood Cell (RBC) Count 2.54 mill/uL (4.70-6.10); White Blood Cell (WBC) Count 10.3 10x3/uL (4.8-10.8)
[2022-11-23] MEDS: cefTRIAXone\\ROCEPHIN 1 GM in Sodium Chloride 0.9% 100 ML IVPB SCH (05:59)
[2022-11-23 06:15] LABS: Anion Gap 28 mmol/L (10-20); BUN (Urea Nitrogen) 111 mg/dL (8.4-25.7); Calc. Creatinine Clearance 9 mL/min (70-130); Carbon Dioxide 16 mmol/L (23-31); Chloride 93 mmol/L (98-107); Estimated GFR 4; Glucose 167 mg/dL (80-115); Sodium 130 mmol/L (136-145)
[2022-11-23 06:21] LABS: Potassium 6.6 mmol/L (3.5-5.1)
[2022-11-23] MEDS ORDERED: Dextrose 50% Abboject 50 ML SYRINGE SLOW IVP SCH (06:45)
[2022-11-23] MEDS ORDERED: Insulin Regular 300 UNITS/3 ML VIAL IVP SCH (06:45)
[2022-11-23] MEDS ORDERED: Dextrose 10% in Water 250 ML IVPB SCH (07:00)
[2022-11-23] MEDS ORDERED: Dextrose 50% Abboject 50 ML SYRINGE IVP PRN (07:30)
[2022-11-23] MEDS ORDERED: Lidocaine 2% PF 5 ML VIAL ONE (10:46)
[2022-11-23] MEDS ORDERED: Bupivacaine/Epinephrine 0.25% 30 ML VIAL ONE (10:46)
[2022-11-23] MEDS ORDERED: Heparin 5,000 UNITS/ML VIAL ONE (10:46)
[2022-11-23] MEDS ORDERED: Heparin 10,000 UNITS/ 10 ML VIAL ONE ×2 (10:46→11:08)
[2022-11-23] MEDS ORDERED: Protamine Sulfate 50 MG/5 ML VIAL ONE (10:59)
[2022-11-23] MEDS: HumuLIN 70/30 (300 UNITS/3 ML VIAL) SC SCH ×2 (11:35→20:37)
[2022-11-23] MEDS: Fluticasone Propionate Nasal Spray 16 gm Bottle NASAL SCH (11:35)
[2022-11-23] MEDS: Azithromycin 250 MG TAB PO SCH (11:35)
[2022-11-23] MEDS: Sertraline 100 MG TAB PO SCH (11:35)
[2022-11-23 11:59] LABS: Anion Gap 19 mmol/L (10-20); BUN (Urea Nitrogen) 40 mg/dL (8.4-25.7); Calc. Creatinine Clearance 23 mL/min (70-130); Carbon Dioxide 26 mmol/L (23-31); Chloride 95 mmol/L (98-107); Estimated GFR 12; Glucose 113 mg/dL (80-115); Potassium 2.8 mmol/L (3.5-5.1); Sodium 137 mmol/L (136-145)
[2022-11-23] MEDS ORDERED: CEFAZOLIN 2 GM VIAL ONE (12:53)
[2022-11-23] MEDS ORDERED: Sodium Chloride 0.9% 100 ML ONE (12:53)
[2022-11-23] MEDS ORDERED: Famotidine/PF 20 mg/2ml Vial ONE (13:04)
[2022-11-23] MEDS ORDERED: Ketamine 50 MG/ML (10ML VIAL) ONE (13:04)
[2022-11-23] MEDS ORDERED: Midazolam HCl 2 mg/2 ml Vial ONE (13:04)
[2022-11-23] MEDS ORDERED: Glycopyrrolate 0.2 MG/ML 5 ML SYRINGE ONE (13:10)
[2022-11-23] MEDS ORDERED: Ondansetron PF 4 MG/2 ML Vial ONE (13:10)
[2022-11-23] MEDS ORDERED: Ondansetron HCl/PF 4 MG/2 ML Vial IVP PRN (13:50)
[2022-11-23] MEDS ORDERED: Potassium Chloride 20 MEQ in Premix Bag 1 BAG IVPB SCH (14:00)
[2022-11-23] MEDS ORDERED: Calcium Carbonate 500 MG ChewTAB PO PRN (20:09)
[2022-11-23] MEDS: Atorvastatin Calcium 40 MG TAB PO SCH (20:34)
[2022-11-23] MEDS: Finasteride 5 MG TAB PO SCH (20:34)
[2022-11-23] MEDS: Tamsulosin HCl 0.4 MG CAP PO SCH (20:34)
[2022-11-23] MEDS: Gabapentin 300 MG CAP PO SCH (20:34)
[2022-11-24 05:21] LABS: #Eosinphils 0.2 thou/uL (0.0-0.7); #Lymphocytes 1.5 thou/uL (1.20-3.40); #Monocytes 1.2 thou/uL (0.11-0.59); #Neutrophils 8.6 thou/uL (1.40-6.50); %Basophils 0.2 % (0.0-1.0); %Eosinophils 1.9 % (0.0-10.0); %Lymphocytes 13.4 % (21.0-51.0); %Monocytes 10.3 % (0.0-10.0); %Neutrophils 74.3 % (42.0-75.0); Hemoglobin 9.3 g/dL (14.0-18.0); Mean Corpuscular Hemoglobin 34.2 pg (27.0-31.0); Mean Platelet Volume 10.4 fL (7.4-10.4); Platelet Count 121 10x3/uL (130-400); RBC Distribution Width 13.9 % (11.5-14.5); Red Blood Cell (RBC) Count 2.73 mill/uL (4.70-6.10); White Blood Cell (WBC) Count 11.5 10x3/uL (4.8-10.8)
[2022-11-24] MEDS: cefTRIAXone\\ROCEPHIN 1 GM in Sodium Chloride 0.9% 100 ML IVPB SCH (05:50)
[2022-11-24] MEDS: Azithromycin 250 MG TAB PO SCH (05:51)
[2022-11-24] MEDS: Sertraline 100 MG TAB PO SCH (05:51)
[2022-11-24 05:58] LABS: Anion Gap 29 mmol/L (10-20); BUN (Urea Nitrogen) 90 mg/dL (8.4-25.7); Calc. Creatinine Clearance 11 mL/min (70-130); Calcium 8.1 mg/dL (7.8-10.44); Carbon Dioxide 15 mmol/L (23-31); Chloride 95 mmol/L (98-107); Estimated GFR 5; Glucose 186 mg/dL (80-115); Potassium 6.7 mmol/L (3.5-5.1); Sodium 132 mmol/L (136-145)
[2022-11-24] MEDS ORDERED: Dextrose 50% Abboject 50 ML SYRINGE SLOW IVP SCH (06:15)
[2022-11-24] MEDS ORDERED: Insulin Regular 300 UNITS/3 ML VIAL IVP SCH (06:15)
[2022-11-24] MEDS ORDERED: Heparin 10,000 UNITS/ 10 ML VIAL ONE (08:56)
[2022-11-24 09:27] LABS: Anion Gap 24 mmol/L (10-20); BUN (Urea Nitrogen) 76 mg/dL (8.4-25.7); Calc. Creatinine Clearance 12 mL/min (70-130); Calcium 8.3 mg/dL (7.8-10.44); Carbon Dioxide 19 mmol/L (23-31); Chloride 96 mmol/L (98-107); Estimated GFR 6; Glucose 130 mg/dL (80-115); Potassium 5.4 mmol/L (3.5-5.1); Sodium 134 mmol/L (136-145)
[2022-11-24 12:22] LABS: Hemoglobin 9.8 g/dL (14.0-18.0); Platelet Count 128 10x3/uL (130-400)
[2022-11-24] MEDS: HumuLIN 70/30 (300 UNITS/3 ML VIAL) SC SCH ×2 (14:12→21:05)
[2022-11-24] MEDS: Fluticasone Propionate Nasal Spray 16 gm Bottle NASAL SCH (14:12)
[2022-11-24] MEDS: Finasteride 5 MG TAB PO SCH (21:05)
[2022-11-24] MEDS: Atorvastatin Calcium 40 MG TAB PO SCH (21:05)
[2022-11-24] MEDS: Gabapentin 300 MG CAP PO SCH (21:05)
[2022-11-24] MEDS: Tamsulosin HCl 0.4 MG CAP PO SCH (21:05)
[2022-11-24] MEDS: Non-Formulary Item 1 EACH (B,C/Folic/Zinc/Selenometh/D3/E [Renaplex-D Tablet] 1 EACH Tabl PO SCH (23:06)
[2022-11-25 04:55] LABS: #Eosinphils 0.2 thou/uL (0.0-0.7); #Lymphocytes 1.3 thou/uL (1.20-3.40); #Monocytes 1.2 thou/uL (0.11-0.59); #Neutrophils 6.8 thou/uL (1.40-6.50); %Basophils 0.2 % (0.0-1.0); %Eosinophils 1.8 % (0.0-10.0); %Lymphocytes 13.3 % (21.0-51.0); %Monocytes 12.8 % (0.0-10.0); Hemoglobin 8.9 g/dL (14.0-18.0); Mean Corpuscular Hemoglobin 34.8 pg (27.0-31.0); Mean Platelet Volume 10.2 fL (7.4-10.4); Platelet Count 123 10x3/uL (130-400); RBC Distribution Width 14.4 % (11.5-14.5); Red Blood Cell (RBC) Count 2.57 mill/uL (4.70-6.10); White Blood Cell (WBC) Count 9.4 10x3/uL (4.8-10.8)
[2022-11-25 05:17] LABS: Anion Gap 20 mmol/L (10-20); BUN (Urea Nitrogen) 48 mg/dL (8.4-25.7); Calc. Creatinine Clearance 14 mL/min (70-130); Calcium 8.1 mg/dL (7.8-10.44); Carbon Dioxide 23 mmol/L (23-31); Chloride 97 mmol/L (98-107); Estimated GFR 7; Glucose 246 mg/dL (80-115); Potassium 4.7 mmol/L (3.5-5.1); Sodium 135 mmol/L (136-145)
[2022-11-25] MEDS: cefTRIAXone\\ROCEPHIN 1 GM in Sodium Chloride 0.9% 100 ML IVPB SCH (05:20)
[2022-11-25] MEDS: Sertraline 100 MG TAB PO SCH (05:58)
[2022-11-25] MEDS: Azithromycin 250 MG TAB PO SCH (05:58)
[2022-11-25] MEDS ORDERED: Heparin 10,000 UNITS/ 10 ML VIAL ONE ×2 (06:15→08:59)
[2022-11-25] MEDS ORDERED: Nitroglycerin 100MG/250ML BOT 0 ML ONE (06:15)
[2022-11-25] MEDS ORDERED: Lidocaine 1% (PF) 30 ML VIAL ONE (06:15)
[2022-11-25] MEDS ORDERED: Midazolam HCl 2 mg/2 ml Vial ONE (07:17)
[2022-11-25] MEDS ORDERED: FENTANYL 50 MCG/ML 1 ML VIAL ONE (07:17)
[2022-11-25] MEDS ORDERED: Sodium Chloride 0.9% 200 ML IV PRN (08:21)
[2022-11-25] MEDS ORDERED: Nitroglycerin 0.4 MG TAB (25 Tab Bottle) SL PRN (08:21)
[2022-11-25] MEDS: HumuLIN 70/30 (300 UNITS/3 ML VIAL) SC SCH ×2 (09:00→21:16)
[2022-11-25] MEDS ORDERED: Iopamidol 370 76% 100 ML VIAL ONE (11:06)
[2022-11-25] MEDS: Fluticasone Propionate Nasal Spray 16 gm Bottle NASAL SCH (14:59)
[2022-11-25] MEDS: EPOETIN ALFA-EPBX (ESRD) 10,000 UNIT/ML VIAL SC SCH (18:12)
[2022-11-25] MEDS: Finasteride 5 MG TAB PO SCH (21:16)
[2022-11-25] MEDS: Atorvastatin Calcium 40 MG TAB PO SCH (21:16)
[2022-11-25] MEDS: Gabapentin 300 MG CAP PO SCH (21:16)
[2022-11-25] MEDS: Tamsulosin HCl 0.4 MG CAP PO SCH (21:17)
[2022-11-26 05:00] LABS: #Eosinphils 0.2 thou/uL (0.0-0.7); #Lymphocytes 1.2 thou/uL (1.20-3.40); #Monocytes 1.4 thou/uL (0.11-0.59); #Neutrophils 7.5 thou/uL (1.40-6.50); %Basophils 0.2 % (0.0-1.0); %Eosinophils 1.9 % (0.0-10.0); %Lymphocytes 11.7 % (21.0-51.0); %Neutrophils 72.2 % (42.0-75.0); Mean Corpuscular Hemoglobin 34.5 pg (27.0-31.0); Mean Platelet Volume 10.1 fL (7.4-10.4); Platelet Count 122 10x3/uL (130-400); RBC Distribution Width 14.6 % (11.5-14.5); White Blood Cell (WBC) Count 10.3 10x3/uL (4.8-10.8)
[2022-11-26 05:24] LABS: Anion Gap 15 mmol/L (10-20); BUN (Urea Nitrogen) 21 mg/dL (8.4-25.7); Calc. Creatinine Clearance 21 mL/min (70-130); Carbon Dioxide 26 mmol/L (23-31); Chloride 98 mmol/L (98-107); Estimated GFR 11; Glucose 281 mg/dL (80-115); Phosphorus 4.4 mg/dL (2.3-4.7); Potassium 3.9 mmol/L (3.5-5.1); Sodium 135 mmol/L (136-145)
[2022-11-26] MEDS: HumaLOG 300 UNITS/3 ML VIAL SC PRN ×3 (06:07→17:20)
[2022-11-26] MEDS: Aspirin 81 mg Enteric Coated Tablet PO SCH (08:16)
[2022-11-26] MEDS: Fluticasone Propionate Nasal Spray 16 gm Bottle NASAL SCH (08:17)
[2022-11-26] MEDS: Sertraline 100 MG TAB PO SCH (08:17)
[2022-11-26] MEDS: HumuLIN 70/30 (300 UNITS/3 ML VIAL) SC SCH ×2 (08:18→20:21)
[2022-11-26] MEDS ORDERED: Polyethylene Glycol 3350 17 GM Packet PO PRN (08:26)
[2022-11-26] MEDS: Senokot S 8.6-50 MG TAB PO SCH ×2 (09:09→20:22)
[2022-11-26 12:18] LABS: Hemoglobin 9.1 g/dL (14.0-18.0); Platelet Count 121 10x3/uL (130-400)
[2022-11-26] MEDS: Midodrine HCl 5 MG TAB PO SCH ×2 (15:13→20:23)
[2022-11-26] MEDS: Atorvastatin Calcium 40 MG TAB PO SCH (20:21)
[2022-11-26] MEDS: Gabapentin 300 MG CAP PO SCH (20:21)
[2022-11-26] MEDS: Finasteride 5 MG TAB PO SCH (20:21)
[2022-11-26] MEDS: Tamsulosin HCl 0.4 MG CAP PO SCH (20:22)
[2022-11-27] MEDS: Aspirin 81 mg Enteric Coated Tablet PO SCH (09:22)
[2022-11-27] MEDS: Fluticasone Propionate Nasal Spray 16 gm Bottle NASAL SCH (09:22)
[2022-11-27] MEDS: HumuLIN 70/30 (300 UNITS/3 ML VIAL) SC SCH ×2 (09:23→20:51)
[2022-11-27] MEDS: Sertraline 100 MG TAB PO SCH (09:24)
[2022-11-27] MEDS: Midodrine HCl 5 MG TAB PO SCH ×3 (09:24→20:52)
[2022-11-27] MEDS: Senokot S 8.6-50 MG TAB PO SCH ×2 (09:24→20:52)
[2022-11-27] MEDS: HumaLOG 300 UNITS/3 ML VIAL SC PRN ×2 (11:51→20:51)
[2022-11-27] MEDS: Atorvastatin Calcium 40 MG TAB PO SCH (20:50)
[2022-11-27] MEDS: Finasteride 5 MG TAB PO SCH (20:50)
[2022-11-27] MEDS: Gabapentin 300 MG CAP PO SCH (20:50)
[2022-11-27] MEDS: Tamsulosin HCl 0.4 MG CAP PO SCH (20:52)
[2022-11-28] MEDS ORDERED: Heparin 5,000 UNITS/ML VIAL ONE (06:43)
[2022-11-28] MEDS ORDERED: Lidocaine 2% PF 5 ML VIAL ONE ×3 (06:43→07:23)
[2022-11-28] MEDS ORDERED: Bupivacaine/Epinephrine 0.25% 30 ML VIAL ONE (06:43)
[2022-11-28] MEDS ORDERED: Protamine Sulfate 50 MG/5 ML VIAL ONE (06:48)
[2022-11-28] MEDS ORDERED: CEFAZOLIN 2 GM VIAL ONE (07:15)
[2022-11-28] MEDS ORDERED: Sodium Chloride 0.9% 100 ML ONE (07:16)
[2022-11-28] MEDS ORDERED: Ketamine 50 MG/ML (10ML VIAL) ONE (07:18)
[2022-11-28] MEDS ORDERED: Midazolam HCl 2 mg/2 ml Vial ONE (07:18)
[2022-11-28] MEDS ORDERED: Ropivacaine 0.5% HCl/PF (150 MG/30 ML VIAL) ONE (07:23)
[2022-11-28] MEDS ORDERED: Fentanyl 100 MCG/2 ML VIAL ONE (07:23)
[2022-11-28] MEDS ORDERED: Lidocaine 1% (PF) 30 ML VIAL ONE (07:23)
[2022-11-28] MEDS ORDERED: Heparin 10,000 UNITS/ 10 ML VIAL ONE (08:39)
[2022-11-28] MEDS ORDERED: Ondansetron HCl/PF 4 MG/2 ML Vial IVP PRN (09:31)
[2022-11-28] MEDS: Sertraline 100 MG TAB PO SCH (11:30)
[2022-11-28] MEDS: HumuLIN 70/30 (300 UNITS/3 ML VIAL) SC SCH ×2 (11:30→20:09)
[2022-11-28] MEDS: Aspirin 81 mg Enteric Coated Tablet PO SCH (11:30)
[2022-11-28] MEDS: Senokot S 8.6-50 MG TAB PO SCH ×2 (11:30→20:03)
[2022-11-28] MEDS: Midodrine HCl 5 MG TAB PO SCH ×3 (11:31→20:03)
[2022-11-28] MEDS: Fluticasone Propionate Nasal Spray 16 gm Bottle NASAL SCH (11:31)
[2022-11-28 15:12] LABS: Hemoglobin 8.9 g/dL (14.0-18.0); Platelet Count 124 10x3/uL (130-400)
[2022-11-28] MEDS: Acetaminophen/Codeine 30-300mg Tablet PO PRN ×2 (16:20→20:04)
[2022-11-28] MEDS: Atorvastatin Calcium 40 MG TAB PO SCH (20:03)
[2022-11-28] MEDS: Finasteride 5 MG TAB PO SCH (20:03)
[2022-11-28] MEDS: Gabapentin 300 MG CAP PO SCH (20:03)
[2022-11-28] MEDS: Tamsulosin HCl 0.4 MG CAP PO SCH (20:03)
[2022-11-28] MEDS: Heparin 5,000 UNITS/ML VIAL SC SCH (20:14)
[2022-11-29] MEDS: Midodrine HCl 5 MG TAB PO SCH ×3 (10:01→21:58)
[2022-11-29] MEDS: Sertraline 100 MG TAB PO SCH (10:02)
[2022-11-29] MEDS: Aspirin 81 mg Enteric Coated Tablet PO SCH (10:03)
[2022-11-29] MEDS: Fluticasone Propionate Nasal Spray 16 gm Bottle NASAL SCH (10:03)
[2022-11-29] MEDS: Senokot S 8.6-50 MG TAB PO SCH ×2 (10:03→21:57)
[2022-11-29] MEDS: Heparin 5,000 UNITS/ML VIAL SC SCH ×2 (10:03→21:58)
[2022-11-29] MEDS: HumuLIN 70/30 (300 UNITS/3 ML VIAL) SC SCH ×2 (10:11→21:58)
[2022-11-29] MEDS: Tamsulosin HCl 0.4 MG CAP PO SCH (21:57)
[2022-11-29] MEDS: Gabapentin 300 MG CAP PO SCH (21:57)
[2022-11-29] MEDS: Atorvastatin Calcium 40 MG TAB PO SCH (21:58)
[2022-11-29] MEDS: Finasteride 5 MG TAB PO SCH (21:58)
[2022-11-30 05:32] LABS: #Eosinphils 0.3 thou/uL (0.0-0.7); #Lymphocytes 1.7 thou/uL (1.20-3.40); #Monocytes 1.5 thou/uL (0.11-0.59); #Neutrophils 6.9 thou/uL (1.40-6.50); %Basophils 0.4 % (0.0-1.0); %Eosinophils 2.8 % (0.0-10.0); %Lymphocytes 16.2 % (21.0-51.0); %Monocytes 14.5 % (0.0-10.0); %Neutrophils 66.1 % (42.0-75.0); Hemoglobin 9.3 g/dL (14.0-18.0); Mean Corpuscular HGB CONC 32.8 g/dL (32.0-36.0); Mean Corpuscular Hemoglobin 34.9 pg (27.0-31.0); Mean Platelet Volume 9.6 fL (7.4-10.4); Platelet Count 126 10x3/uL (130-400); RBC Distribution Width 14.9 % (11.5-14.5); Red Blood Cell (RBC) Count 2.66 mill/uL (4.70-6.10); White Blood Cell (WBC) Count 10.5 10x3/uL (4.8-10.8)
[2022-11-30 05:40] LABS: Anion Gap 16 mmol/L (10-20); BUN (Urea Nitrogen) 34 mg/dL (8.4-25.7); Calc. Creatinine Clearance 15 mL/min (70-130); Calcium 7.8 mg/dL (7.8-10.44); Carbon Dioxide 25 mmol/L (23-31); Chloride 96 mmol/L (98-107); Estimated GFR 8; Glucose 144 mg/dL (80-115); Potassium 4.7 mmol/L (3.5-5.1); Sodium 132 mmol/L (136-145)
[2022-11-30] MEDS ORDERED: Heparin 10,000 UNITS/ 10 ML VIAL ONE (08:50)
[2022-11-30 13:07] LABS: Hemoglobin 9.4 g/dL (14.0-18.0); Platelet Count 126 10x3/uL (130-400)
[2022-11-30] MEDS: Sertraline 100 MG TAB PO SCH (14:25)
[2022-11-30] MEDS: Senokot S 8.6-50 MG TAB PO SCH ×2 (14:26→21:09)
[2022-11-30] MEDS: Aspirin 81 mg Enteric Coated Tablet PO SCH (14:26)
[2022-11-30] MEDS: Midodrine HCl 5 MG TAB PO SCH ×3 (14:26→21:09)
[2022-11-30] MEDS: Fluticasone Propionate Nasal Spray 16 gm Bottle NASAL SCH (14:27)
[2022-11-30] MEDS: HumuLIN 70/30 (300 UNITS/3 ML VIAL) SC SCH ×2 (14:28→21:09)
[2022-11-30] MEDS: Heparin 5,000 UNITS/ML VIAL SC SCH ×2 (14:29→21:05)
[2022-11-30] MEDS: HumaLOG 300 UNITS/3 ML VIAL SC PRN ×2 (17:51→21:09)
[2022-11-30] MEDS: Finasteride 5 MG TAB PO SCH (21:08)
[2022-11-30] MEDS: Atorvastatin Calcium 40 MG TAB PO SCH (21:08)
[2022-11-30] MEDS: Gabapentin 300 MG CAP PO SCH (21:08)
[2022-11-30] MEDS: Tamsulosin HCl 0.4 MG CAP PO SCH (21:09)
[2022-12-01 05:12] LABS: #Eosinphils 0.2 thou/uL (0.0-0.7); #Lymphocytes 1.7 thou/uL (1.20-3.40); #Monocytes 1.7 thou/uL (0.11-0.59); #Neutrophils 7.7 thou/uL (1.40-6.50); %Basophils 0.3 % (0.0-1.0); %Eosinophils 1.7 % (0.0-10.0); %Lymphocytes 14.7 % (21.0-51.0); %Monocytes 14.7 % (0.0-10.0); %Neutrophils 68.6 % (42.0-75.0); Hemoglobin 9.3 g/dL (14.0-18.0); Mean Corpuscular HGB CONC 32.3 g/dL (32.0-36.0); Mean Corpuscular Hemoglobin 34.2 pg (27.0-31.0); Mean Platelet Volume 9.7 fL (7.4-10.4); Platelet Count 133 10x3/uL (130-400); RBC Distribution Width 14.8 % (11.5-14.5); Red Blood Cell (RBC) Count 2.72 mill/uL (4.70-6.10); White Blood Cell (WBC) Count 11.3 10x3/uL (4.8-10.8)
[2022-12-01 05:41] LABS: Anion Gap 17 mmol/L (10-20); BUN (Urea Nitrogen) 24 mg/dL (8.4-25.7); Calc. Creatinine Clearance 21 mL/min (70-130); Calcium 8.1 mg/dL (7.8-10.44); Carbon Dioxide 29 mmol/L (23-31); Chloride 95 mmol/L (98-107); Estimated GFR 11; Glucose 161 mg/dL (80-115); Potassium 4.6 mmol/L (3.5-5.1); Sodium 136 mmol/L (136-145)
[2022-12-01] MEDS: Fluticasone Propionate Nasal Spray 16 gm Bottle NASAL SCH (09:04)
[2022-12-01] MEDS: Aspirin 81 mg Enteric Coated Tablet PO SCH (09:04)
[2022-12-01] MEDS: Senokot S 8.6-50 MG TAB PO SCH ×2 (09:05→20:16)
[2022-12-01] MEDS: Sertraline 100 MG TAB PO SCH (09:05)
[2022-12-01] MEDS: Midodrine HCl 5 MG TAB PO SCH ×3 (09:05→20:16)
[2022-12-01] MEDS: Heparin 5,000 UNITS/ML VIAL SC SCH ×2 (09:07→20:15)
[2022-12-01] MEDS: HumuLIN 70/30 (300 UNITS/3 ML VIAL) SC SCH ×2 (11:23→20:15)
[2022-12-01] MEDS: HumaLOG 300 UNITS/3 ML VIAL SC PRN ×3 (12:38→20:15)
[2022-12-01] MEDS: Gabapentin 300 MG CAP PO SCH (20:14)
[2022-12-01] MEDS: Atorvastatin Calcium 40 MG TAB PO SCH (20:14)
[2022-12-01] MEDS: Finasteride 5 MG TAB PO SCH (20:14)
[2022-12-01] MEDS: Tamsulosin HCl 0.4 MG CAP PO SCH (20:16)
[2022-12-02 05:15] LABS: Hemoglobin 9.4 g/dL (14.0-18.0); Mean Corpuscular HGB CONC 32.9 g/dL (32.0-36.0); Mean Corpuscular Hemoglobin 34.5 pg (27.0-31.0); Mean Platelet Volume 9.8 fL (7.4-10.4); Platelet Count 135 10x3/uL (130-400); RBC Distribution Width 14.3 % (11.5-14.5); Red Blood Cell (RBC) Count 2.71 mill/uL (4.70-6.10); White Blood Cell (WBC) Count 10.4 10x3/uL (4.8-10.8)
[2022-12-02 05:34] LABS: Anion Gap 17 mmol/L (10-20); BUN (Urea Nitrogen) 41 mg/dL (8.4-25.7); Calc. Creatinine Clearance 16 mL/min (70-130); Calcium 7.9 mg/dL (7.8-10.44); Carbon Dioxide 26 mmol/L (23-31); Chloride 94 mmol/L (98-107); Estimated GFR 8; Glucose 146 mg/dL (80-115); Potassium 4.4 mmol/L (3.5-5.1); Sodium 133 mmol/L (136-145)
[2022-12-02 05:53] LABS: Eosinophils 3 % (0-10); Lymphocytes 15 % (21-51); MDiff Complete? YES; Macrocytosis SLIGHT = 6-15 cells (100X) (0-5/hpf); Monocytes 14 % (0-10); Neutrophil 68 % (42-75)
[2022-12-02 07:52] VITALS: TEMP 97.5
[2022-12-02 12:08] LABS: Hemoglobin 9.3 g/dL (14.0-18.0); Platelet Count 136 10x3/uL (130-400)
[2022-12-02] MEDS ORDERED: Heparin 10,000 UNITS/ 10 ML VIAL ONE (12:29)
[2022-12-02 13:46] VITALS: BP 99/52
[2022-12-02] MEDS: Heparin 5,000 UNITS/ML VIAL SC SCH (13:47)
[2022-12-02] MEDS: Senokot S 8.6-50 MG TAB PO SCH ×2 (13:47→13:53)
[2022-12-02] MEDS: Sertraline 100 MG TAB PO SCH (13:47)
[2022-12-02] MEDS: Fluticasone Propionate Nasal Spray 16 gm Bottle NASAL SCH (13:48)
[2022-12-02] MEDS: Aspirin 81 mg Enteric Coated Tablet PO SCH (13:48)
[2022-12-02] MEDS: Midodrine HCl 5 MG TAB PO SCH (13:48)
[2022-12-02] MEDS: HumuLIN 70/30 (300 UNITS/3 ML VIAL) SC SCH (13:52)
== END 2022-12-02 14:20 | DRG 252 ==
LOC: ERS 00:31 → ERHOLD 02:05 → 2SW 12:36 → OBSVTOIN 14:16
PROVIDERS: ADMIT Internal Medicine; ATTEND Hospitalist
PROC: 5A1D70Z Performance of Urinary Filtration, Intermittent, Less than 6 Hours Per Day (ICD-10-PCS; 2022-11-18)
PROC: 02HV33Z Insertion of Infusion Device into Superior Vena Cava, Percutaneous Approach (ICD-10-PCS; 2022-11-21)
PROC: B51W1ZZ Fluoroscopy of Dialysis Shunt/Fistula using Low Osmolar Contrast (ICD-10-PCS; 2022-11-21)
PROC: 3E03317 Introduction of Other Thrombolytic into Peripheral Vein, Percutaneous Approach (ICD-10-PCS; 2022-11-21)
PROC: 037Y3ZZ Dilation of Upper Artery, Percutaneous Approach (ICD-10-PCS; 2022-11-21)
PROC: 3E033XZ Introduction of Vasopressor into Peripheral Vein, Percutaneous Approach (ICD-10-PCS; principal; 2022-11-23)
PROC: 0JH60XZ Insertion of Tunneled Vascular Access Device into Chest Subcutaneous Tissue and Fascia, Open Approach (ICD-10-PCS; 2022-11-23)
PROC: 02HV33Z Insertion of Infusion Device into Superior Vena Cava, Percutaneous Approach (ICD-10-PCS; 2022-11-23)
PROC: B5181ZA Fluoroscopy of Superior Vena Cava using Low Osmolar Contrast, Guidance (ICD-10-PCS; 2022-11-23)
PROC: B548ZZA Ultrasonography of Superior Vena Cava, Guidance (ICD-10-PCS; 2022-11-23)
PROC: 4A023N7 Measurement of Cardiac Sampling and Pressure, Left Heart, Percutaneous Approach (ICD-10-PCS; 2022-11-25)
PROC: B2111ZZ Fluoroscopy of Multiple Coronary Arteries using Low Osmolar Contrast (ICD-10-PCS; 2022-11-25)
PROC: B2131ZZ Fluoroscopy of Multiple Coronary Artery Bypass Grafts using Low Osmolar Contrast (ICD-10-PCS; 2022-11-25)
PROC: B2181ZZ Fluoroscopy of Left Internal Mammary Bypass Graft using Low Osmolar Contrast (ICD-10-PCS; 2022-11-25)
PROC: B2151ZZ Fluoroscopy of Left Heart using Low Osmolar Contrast (ICD-10-PCS; 2022-11-25)
PROC: 03180ZD Bypass Left Brachial Artery to Upper Arm Vein, Open Approach (ICD-10-PCS; 2022-11-28)
DX: I13.2 Hypertensive heart and chronic kidney disease with heart failure and with stage 5 chronic kidney disease, or end stage renal disease (principal); I21.4 Non-ST elevation (NSTEMI) myocardial infarction; N18.6 End stage renal disease; I50.43 Acute on chronic combined systolic (congestive) and diastolic (congestive) heart failure; T82.868A Thrombosis due to vascular prosthetic devices, implants and grafts, initial encounter; E87.20 Acidosis, unspecified; T82.856A Stenosis of peripheral vascular stent, initial encounter; E87.5 Hyperkalemia; E78.5 Hyperlipidemia, unspecified; E11.22 Type 2 diabetes mellitus with diabetic chronic kidney disease; D63.1 Anemia in chronic kidney disease; R74.8 Abnormal levels of other serum enzymes; D69.6 Thrombocytopenia, unspecified; E87.6 Hypokalemia; Z20.822 Contact with and (suspected) exposure to COVID-19; D72.829 Elevated white blood cell count, unspecified; I25.10 Atherosclerotic heart disease of native coronary artery without angina pectoris; I25.5 Ischemic cardiomyopathy; J20.9 Acute bronchitis, unspecified; N25.0 Renal osteodystrophy; Y83.8 Other surgical procedures as the cause of abnormal reaction of the patient, or of later complication, without mention of misadventure at the time of the procedure; I42.0 Dilated cardiomyopathy; N40.0 Benign prostatic hyperplasia without lower urinary tract symptoms; F41.9 Anxiety disorder, unspecified; F32.A Depression, unspecified; Z91.15 Patient's noncompliance with renal dialysis; Z99.2 Dependence on renal dialysis; Z79.899 Other long term (current) drug therapy; Z79.4 Long term (current) use of insulin; Z95.0 Presence of cardiac pacemaker; Z95.1 Presence of aortocoronary bypass graft; Z98.890 Other specified postprocedural states; Z89.411 Acquired absence of right great toe; Z80.9 Family history of malignant neoplasm, unspecified
CPT/HCPCS: 36415; 36416; 36901; 36902; 36905; 70450; 71045; 80048; 80053; 82553; 83605; 83735; 83880; 83970; 84100; 84484; 85014; 85018; 85025; 85049; 85730; 86140; 86704; 86850; 86900; 86901; 87040; 87070; 87205; 87811; 90935; 93005; 93010; 93306; 93461; 93798; 93970; 96374; 96375; 97139; 99152; 99153; C1713; C1725; C1752; C1769; C1776; G0257; G0378; J0456; J0696; J1642; J1644; J1815; J2001; J2250; J2405; J2720; J2795; J3010; J3480; J3490; J7050; J7999; Q5105; Q9967; S0028; U0003; U0005

== ENCOUNTER 2022-12-27 06:30 | Day surgery (SDC) | payer MEDICARE ==
[2022-12-22 15:19] VITALS: BMI 34.2
[2022-12-27 07:19] VITALS: BP 105/53; TEMP 97.8
[2022-12-27] MEDS ORDERED: Iopamidol 300 61% 100 ML VIAL FS ONE (11:23)
== END 2022-12-27 10:12 | disposition home or self-care (01) ==
LOC: SPEC 06:30
PROVIDERS: ATTEND Specialist
PROC: B51W1ZZ Fluoroscopy of Dialysis Shunt/Fistula using Low Osmolar Contrast (ICD-10-PCS; principal; 2022-12-27)
DX: T82.590A Other mechanical complication of surgically created arteriovenous fistula, initial encounter (principal); N18.6 End stage renal disease; Z79.4 Long term (current) use of insulin; Z79.899 Other long term (current) drug therapy; Y81.3 Surgical instruments, materials and general- and plastic-surgery devices (including sutures) associated with adverse incidents
CPT/HCPCS: 36901